=== PATIENT | male | born 1980 | race Caucasian/White ===

== ENCOUNTER 2017-06-26 15:17 | Emergency (ER) | payer OTHER, SELFPAY | END 2017-06-26 19:11 | disposition short-term general hospital (02) | PROVIDERS: Emergency Provider Emergency Medicine; Family Provider Physician Assistant; Visit Provider Emergency Medicine | DX: K85.90 Acute pancreatitis without necrosis or infection, unspecified (principal); E11.9 Type 2 diabetes mellitus without complications; Z91.14 Patient's other noncompliance with medication regimen | CPT/HCPCS: 74177; 80053; 82150; 83690; 85025; 96365; 96375; 99285; J2405 ==

== ENCOUNTER → 2017-10-06 11:59 | Outpatient (CLI) | payer OTHER, SELFPAY ==
--- NOTE | 2017-10-06 12:01 | XR_ITS ---
XR foot wt bearing RT 3V HISTORY: Right foot pain near the heel ORDERING PHYSICIAN: Cheryl Scott DPM PATIENT AGE: 37 years COMPARISON: None FINDINGS: No fracture or dislocation. No lytic or blastic change. There is normal mineralization.. The joint spaces are well-preserved. No erosive changes evident. There is a prominent calcaneal spur measuring 12 mm. There are mild osteoarthritic changes at first MTP joint IMPRESSION: 1. Mild osteoarthritic change of the first MTP joint 2. Prominent calcaneal spur without obvious erosion
== END ==
PROVIDERS: PCP Physician Assistant; Visit Provider Podiatrist
DX: M79.671 Pain in right foot (principal)
CPT/HCPCS: 73630

== ENCOUNTER → 2018-05-03 07:43 | Outpatient (CLI) | payer OTHER, SELFPAY ==
[2018-05-03 15:19] LABS: Alanine Aminotransferase 51 U/L (12-78); Albumin Level 3.6 gm/dL (3.4-5.0); Alkaline Phosphatase 156 U/L (46-116); Anion Gap 17.5 mEq/L (5-15); Aspartate Amino Transferase 24 U/L (15-37); Bilirubin,Total 1.2 mg/dL (0.2-1.0); Blood Urea Nitrogen 11 mg/dL (7-18); Calcium 8.7 mg/dL (8.5-10.1); Carbon Dioxide 23 mmol/L (21.0-32.0); Chloride 99 mmol/L (98-107); Chol/HDL Ratio 5.3 (1-3.5); Cholesterol 200 mg/dL (140-200); Creatinine,Serum 0.62 mg/dL (0.70-1.30); Estimated Glomerular Filt Rate 145 ml/min (>60); GFR (African American) 176 ML/MIN (>60); Globulin 3.6 gm/dl (1.3-3.2); Glucose 216 mg/dL (74-106); HDL Cholesterol 38 mg/dL (27-67); LDL Cholesterol 91 mg/dL (0-130); Potassium 4.5 mmoL/L (3.5-5.1); Sodium 135 mmol/L (136-145); Total Protein,Serum 7.2 gm/dL (6.4-8.2); Triglycerides 354 mg/dL (30-200); VLDL Cholesterol 71 mg/dL (0-40)
[2018-05-04 11:17] LABS: Creatinine, Urine 108.6 mg/dL (Not Estab.); Microalbumin, Urine 40.5 ug/mL (Not Estab.)
== END ==
PROVIDERS: PCP Physician Assistant; Visit Provider Internal Medicine Endocrinology, Diabetes & Metabolism
DX: E11.65 Type 2 diabetes mellitus with hyperglycemia (principal); E78.2 Mixed hyperlipidemia; Z79.4 Long term (current) use of insulin
CPT/HCPCS: 36415; 80053; 80061; 82043; 82570

== ENCOUNTER → 2018-12-07 07:14 | Outpatient (CLI) | payer OTHER, SELFPAY ==
[2018-12-07 16:57] LABS: Albumin Level 3.1 gm/dL (3.4-5.0); Alkaline Phosphatase 120 U/L (46-116); Blood Urea Nitrogen 16 mg/dL (7-18); Carbon Dioxide 23 mmol/L (21.0-32.0); Chol/HDL Ratio 11.9 (1-3.5); Cholesterol 178 mg/dL (140-200); Creatinine,Serum 0.76 mg/dL (0.70-1.30); Estimated Glomerular Filt Rate 114 ml/min (>60); GFR (African American) 138 ML/MIN (>60); HDL Cholesterol 15 mg/dL (27-67)
[2018-12-07 17:42] LABS: Bilirubin,Total 0.3 mg/dL (0.2-1.0)
[2018-12-07 17:54] LABS: Anion Gap 15.4 mEq/L (5-15); Chloride 102 mmol/L (98-107)
[2018-12-07 18:01] LABS: Potassium 4.4 mmoL/L (3.5-5.1)
[2018-12-07 18:02] LABS: Alanine Aminotransferase 52.8 U/L (12-78); Aspartate Amino Transferase 25 U/L (15-37); Glucose 246 mg/dL (74-106); Total Protein,Serum 6.1 gm/dL (6.4-8.2)
[2018-12-07 18:03] LABS: LDL Cholesterol 148 mg/dL (0-130); Triglycerides 73 mg/dL (30-200); VLDL Cholesterol 15 mg/dL (0-40)
[2018-12-10 15:24] LABS: Sodium 136 mmol/L (136-145)
[2018-12-10 15:27] LABS: Calcium 9.5 mg/dL (8.5-10.1)
== END ==
PROVIDERS: PCP Physician Assistant; Visit Provider Internal Medicine Endocrinology, Diabetes & Metabolism
DX: E11.65 Type 2 diabetes mellitus with hyperglycemia (principal); E78.2 Mixed hyperlipidemia; Z79.4 Long term (current) use of insulin
CPT/HCPCS: 36415; 80053; 80061

== ENCOUNTER → 2019-03-03 16:32 | Outpatient (CLI) | payer OTHER, SELFPAY ==
[2019-03-03 17:55] LABS: Alanine Aminotransferase 44 U/L (12-78); Albumin Level 3.8 gm/dL (3.4-5.0); Albumin/Globulin Ratio 1.1 (1.1-1.8); Alkaline Phosphatase 114 U/L (46-116); Anion Gap 11.8 mEq/L (5-15); Aspartate Amino Transferase 25 U/L (15-37); Bilirubin,Total 0.9 mg/dL (0.2-1.0); Blood Urea Nitrogen 9 mg/dL (7-18); Calcium 8.9 mg/dL (8.5-10.1); Carbon Dioxide 27 mmol/L (21.0-32.0); Chloride 101 mmol/L (98-107); Chol/HDL Ratio 6.2 (1-3.5); Cholesterol 160 mg/dL (140-200); Estimated Glomerular Filt Rate 150 ml/min (>60); GFR (African American) 181 ML/MIN (>60); Globulin 3.6 gm/dl (1.3-3.2); Glucose 159 mg/dL (74-106); HDL Cholesterol 26 mg/dL (27-67); Potassium 3.8 mmoL/L (3.5-5.1); Sodium 136 mmol/L (136-145); Thyroid Stimulating Hormone 2.43 uIU/ml (0.358-3.740); Total Protein,Serum 7.4 gm/dL (6.4-8.2)
[2019-03-03 18:40] LABS: Triglycerides 574 mg/dL (30-200)
[2019-03-05 10:17] LABS: Microalbumin, Urine 40.8 ug/mL (Not Estab.)
[2019-03-05 12:51] LABS: Vitamin B12 369 pg/mL (232-1245); Vitamin D 25 Hydroxy 15.4 ng/mL (30.0-100.0)
== END ==
PROVIDERS: Visit Provider Internal Medicine Endocrinology, Diabetes & Metabolism
DX: E11.65 Type 2 diabetes mellitus with hyperglycemia (principal); E78.2 Mixed hyperlipidemia; E53.8 Deficiency of other specified B group vitamins; E55.9 Vitamin D deficiency, unspecified; I10 Essential (primary) hypertension; Z79.4 Long term (current) use of insulin; Z79.84 Long term (current) use of oral hypoglycemic drugs
CPT/HCPCS: 36415; 80053; 80061; 82043; 82570; 82607; 82652; 84443

== ENCOUNTER → 2019-06-04 09:50 | Outpatient (CLI) | payer OTHER, SELFPAY ==
[2019-06-04 11:59] LABS: Blood Urea Nitrogen 12 mg/dL (7-18); Chloride 100 mmol/L (98-107); Chol/HDL Ratio 9.3 (1-3.5); Cholesterol 205 mg/dL (140-200); HDL Cholesterol 22 mg/dL (27-67); Potassium 4.4 mmoL/L (3.5-5.1); Sodium 135 mmol/L (136-145)
[2019-06-04 14:08] LABS: Aspartate Amino Transferase 36 U/L (15-37)
[2019-06-04 14:09] LABS: Alanine Aminotransferase 49.2 U/L (12-78); Anion Gap 14.4 mEq/L (5-15); Carbon Dioxide 25 mmol/L (21.0-32.0); Triglycerides 1663 mg/dL (30-200)
[2019-06-04 14:10] LABS: Albumin Level 3.8 gm/dL (3.4-5.0); Albumin/Globulin Ratio 1.3 (1.1-1.8); Bilirubin,Total 0.5 mg/dL (0.2-1.0); Calcium 8.5 mg/dL (8.5-10.1); Creatinine,Serum 0.56 mg/dL (0.70-1.30); Estimated Glomerular Filt Rate 162 ml/min (>60); GFR (African American) 196 ML/MIN (>60); Globulin 2.9 gm/dl (1.3-3.2); Glucose 186 mg/dL (74-106); Total Protein,Serum 6.7 gm/dL (6.4-8.2)
[2019-06-04 14:11] LABS: Alkaline Phosphatase 103 U/L (46-116)
[2019-06-06 06:39] LABS: Vitamin B12 411 pg/mL (232-1245)
[2019-06-07 06:17] LABS: Vitamin D 25 Hydroxy 13.3 ng/mL (30.0-100.0)
== END ==
PROVIDERS: Visit Provider Internal Medicine Endocrinology, Diabetes & Metabolism
DX: E11.65 Type 2 diabetes mellitus with hyperglycemia (principal); E78.2 Mixed hyperlipidemia; E55.9 Vitamin D deficiency, unspecified; E53.8 Deficiency of other specified B group vitamins; Z79.4 Long term (current) use of insulin; Z79.84 Long term (current) use of oral hypoglycemic drugs
CPT/HCPCS: 36415; 80053; 80061; 82607; 82652

== ENCOUNTER → 2019-12-02 11:22 | Outpatient (CLI) | payer OTHER, SELFPAY ==
[2019-12-02 12:40] LABS: Alanine Aminotransferase 30 U/L (12-78); Albumin Level 4.1 g/dl (3.5-5.0); Albumin/Globulin Ratio 1.3 (1.1-1.8); Alkaline Phosphatase 114 U/L (38-126); Anion Gap 9.3 mEq/L (5-15); Aspartate Amino Transferase 31 U/L (17-59); Bilirubin,Total 1.1 mg/dl (0.2-1.3); Blood Urea Nitrogen 10 mg/dl (9-20); Calcium 9.3 mg/dl (8.4-10.2); Carbon Dioxide 22 mmol/L (22.0-30.0); Chloride 106 mmol/L (98-107); Chol/HDL Ratio 8.5 (1-3.5); Cholesterol 254 mg/dl (140-200); Estimated Glomerular Filt Rate 184 ml/min (>60); GFR (African American) 223 ML/MIN (>60); Globulin 3.1 g/dL (1.3-3.2); Glucose 239 mg/dl (74-100); HDL Cholesterol 30 mg/dl (40-60); Potassium 4.3 mmoL/L (3.5-5.1); Sodium 133 mmol/L (136-145); Total Protein,Serum 7.2 g/dl (6.3-8.2)
[2019-12-02 12:50] LABS: Triglycerides 1390 mg/dl (30-150)
[2019-12-02 12:56] LABS: Direct LDL Cholesterol < 30.00 mg/dL (100-129)
[2019-12-02 13:11] LABS: Thyroid Stimulating Hormone 1.31 uIU/mL (0.465-4.68)
[2019-12-03 10:23] LABS: Creatinine, Urine 96.9 mg/dL (Not Estab.); Microalbumin, Urine 7.9 ug/mL (Not Estab.)
== END ==
PROVIDERS: Visit Provider Internal Medicine Endocrinology, Diabetes & Metabolism
DX: E11.65 Type 2 diabetes mellitus with hyperglycemia (principal); I10 Essential (primary) hypertension; E78.2 Mixed hyperlipidemia; Z79.4 Long term (current) use of insulin; Z13.29 Encounter for screening for other suspected endocrine disorder
CPT/HCPCS: 36415; 80053; 80061; 82043; 82570; 84443

== ENCOUNTER 2020-02-20 15:40 | Emergency (ER) | payer OTHER, SELFPAY ==
[2020-02-20 15:42] VITALS: BP 150/100; PULSE 101; RESP 18; TEMP 37.2; O2SAT 99; BMI 31.9
[2020-02-20 16:26] LABS: Chloride 100 mmol/L (98-107); Potassium 4.2 mmoL/L (3.5-5.1); Sodium 135 mmol/L (136-145)
[2020-02-20 16:26] LABS: Microscopic, Urine URINE MICROSCOPIC (MICROSCOPIC)
[2020-02-20 16:28] LABS: Amylase 78 U/L (30-110)
[2020-02-20 16:29] LABS: Alanine Aminotransferase 53 U/L (12-78); Albumin Level 4.2 g/dl (3.5-5.0); Albumin/Globulin Ratio 1.1 (1.1-1.8); Alkaline Phosphatase 112 U/L (38-126); Anion Gap 16.2 mEq/L (5-15); Aspartate Amino Transferase 50 U/L (17-59); Bilirubin,Total 0.9 mg/dl (0.2-1.3); Blood Urea Nitrogen 14 mg/dl (9-20); Calcium 10.1 mg/dl (8.4-10.2); Carbon Dioxide 23 mmol/L (22.0-30.0); Creatinine Clearance Estimated 265 mL/min (50-200); Estimated Glomerular Filt Rate 184 ml/min (>60); GFR (African American) 223 ML/MIN (>60); Globulin 3.9 g/dL (1.3-3.2); Glucose 314 mg/dl (74-100); Lipase 55 U/L (23-300); Total Protein,Serum 8.1 g/dl (6.3-8.2)
[2020-02-20 16:30] LABS: Appearance,Urine CLEAR (Clear); Bilirubin,Urine Negative (Negative); Blood, Urine TRACE-I (Negative); Color,Urine YELLOW (Yellow); Glucose,Urine (UA) 3+ (Negative); Ketones,Urine Negative (Negative); Leukocyte Esterase,Urine Negative (Negative); Nitrate,Urine Negative (Negative); PH,Urine 6.5 (5.0-8.5); Protein,Urine Negative (Negative); Urobilinogen,Urine 0.2 EU/dl (0.2)
[2020-02-20 16:33] LABS: Basophils # 0.1 K/mm3 (0-0.2); Basophils % 0.5 % (0.1-2.0); Eosinophils # 0.2 K/mm3 (0.0-0.4); Eosinophils % 1.7 % (0.1-12.0); Hematocrit 44.2 % (42.0-52.0); Hemoglobin 15.5 g/dL (14.1-18.0); Lymphocytes # 2.3 K/mm3 (0.7-4.5); Lymphocytes % 25.1 % (10-50); Mean Corpuscular Hemoglobin 29.7 pg (27.0-31.2); Mean Corpuscular Volume 84.7 fl (80-94); Mean Platelet Volume 8.4 fl (7.4-10.4); Monocytes # 0.5 K/mm3 (0.1-1.0); Monocytes % 4.9 % (1.7-9.3); Neutrophils # 6.2 K/mm3 (1.8-7.8); Neutrophils % 67.8 % (37.0-80.0); Platelet Count 179 K/mm3 (142-424); Red Blood Count 5.22 M/mm3 (4.60-6.20); Red Cell Distribution Width 13.2 % (11.5-17.5); White Blood Count 9.1 K/mm3 (4.8-10.8)
[2020-02-20 16:36] VITALS: BP 139/96; PULSE 100; O2SAT 97
[2020-02-20 16:36] LABS: Acetone, Serum (Rapid) None Detected (None Detect)
[2020-02-20 16:50] VITALS: BP 123/85; PULSE 90; RESP 18; TEMP 36.6; O2SAT 100
--- NOTE | 2020-02-20 16:52 | HMH.EDURI ---
ED Disposition Clinical Impression: Upper respiratory infection Disposition: Home, Self-Care Condition on Discharge: Good Instructions: DI for Viral Upper Respiratory Infection -- Adult, DI for Acute Bronchitis Referrals: Breana Mcnamara APRN [Primary Care Provider] - Forms: Work/School Release - Critical Care Critical Care Time: No Attestation: On 02/20/20, the high probability of a clinically significant, sudden or life threatening deterioration of the following system(s) required my full and direct attention, intervention and personal management. The time I documented below is in addition to time spent performing reported procedures but includes the following listed in this critical care notation. Medical Decision Making - Medical Records Medical records reviewed: Yes: I reviewed the patient's medical records. - [place] Inquiry Pt receiving controlled substance: No Vital Signs: 02/20/20 15:42 02/20/20 16:36 02/20/20 16:50 Temperature 98.9 F 98 F Temperature Source Oral Pulse Rate 90 Pulse Rate [Right] 101 H 100 H Respiratory Rate 18 18 Blood Pressure 123/85 Blood Pressure [Right Arm] 150/100 H 139/96 H Blood Pressure Mean [Right Arm] 116 110 Blood Pressure Source [Right Arm] Automatic Cuff Blood Pressure Position [Right Arm] Sitting 02 Sat by Pulse Oximetry 99 97 Oxygen Delivery Method Room Air - Lab Data Lab results reviewed: Yes: I reviewed the patient's lab results. Lab Results 02/20/20 15:30: Urine Color Yellow, Urine Appearance Clear, Urine pH 6.5, Ur Specific Elma 1.020, Urine Protein Negative, Urine Glucose (UA) 3+, Urine Ketones Negative, Urine Blood Trace-i, Urine Nitrate Negative, Urine Bilirubin Negative, Urine Urobilinogen 0.2, Ur Leukocyte Esterase Negative 02/20/20 16:05: WBC 9.1, RBC 5.22, Hgb 15.5, Hct 44.2, MCV 84.7, MCH 29.7, MCHC 35.0, RDW 13.2, Plt Count 179, MPV 8.4, Neut % (Auto) 67.8, Lymph % (Auto) 25.1, Dewitt % (Auto) 4.9, Eos % (Auto) 1.7, Baso % (Auto) 0.5, Neut # (Auto) 6.2, Lymph # (Auto) 2.3, Dewitt # (Auto) 0.5, Eos # (Auto) 0.2, Baso # (Auto) 0.1 02/20/20 16:05: Sodium 135 L, Potassium 4.2, Chloride 100, Carbon Dioxide 23, Anion Gap 16.2 H, BUN 14, Creatinine 0.50 L, Estimated Creat Clear 265, Estimated GFR 184, Est GFR ( Amer) 223, Glucose 314 H, Calcium 10.1, Total Bilirubin 0.9, AST 50, ALT 53, Alkaline Phosphatase 112, Total Protein 8.1, Albumin 4.2, Globulin 3.9 H, Albumin/Globulin Ratio 1.1, Amylase 78, Acetone Level None detected 02/20/20 16:05: Lipase 55 Result diagrams: 02/20/20 16:05 02/20/20 16:05 Orders (Tests/Meds): ORDERS Category Date Time Status Coronavirus 19 Swab (OUTPT) Routine Lab 02/20/20 14:20 Received Urinalysis and Microscopic Stat Lab 02/20/20 15:30 Results - Radiology Data #1 Image(s): Chest Preliminary Findings: Normal/NAD URI/Sore Throat HPI - General Chief Complaint: Upper Respiratory Infection Stated Complaint: pain left side Time Seen by Provider: 02/20/20 16:46 Mode of Arrival: Ambulatory Source of Information: Patient Limitations: No Limitations Description of Symptoms (Recalled from ER Triage Doc. by RN): Pt states for 3 days he has been congested, has had a cough, runny nose, vomiting and overall not feeling well. - History of Present Illness HPI Narrative: 39-year-old male presents with nausea vomiting and minor cough for the last 3 or 4 days. Patient states that cough started about 2 days ago and the nausea vomiting started about 3 days ago. He states of the last 2 days has had 2 episodes of emesis. Otherwise patient denies no other symptoms.Patient denies any recent cough or shortness of breath, patient denies any sore throat or headache, patient denies any loss of taste or smell, patient denies any malaise or fatigue, patient denies any abdominal pain nausea vomiting or diarrhea. - Related Data Home Medications Medication Instructions Recorded Confirmed [facility]
[2020-02-20 16:53] LABS: Bacteria,Urine Trace /lpf; Squamous Epithelial Cell,Urine Occasional #/hpf (0-5); WBC,Urine Occasional #/hpf (0-3)
[2020-02-20 18:58] LABS: POC Glucose,Bedside 267 (70-110)
== END 2020-02-20 16:57 | disposition home or self-care (01) ==
PROVIDERS: Emergency Provider Family Medicine; PCP Nurse Practitioner Family
DX: J06.9 Acute upper respiratory infection, unspecified (principal); Z20.828 Contact with and (suspected) exposure to other viral communicable diseases; E10.65 Type 1 diabetes mellitus with hyperglycemia; Z79.4 Long term (current) use of insulin; Z79.84 Long term (current) use of oral hypoglycemic drugs; E78.5 Hyperlipidemia, unspecified; Z79.899 Other long term (current) drug therapy
CPT/HCPCS: 80053; 81001; 82009; 82150; 82962; 83690; 85025; 99283; U0003

== ENCOUNTER 2020-04-06 07:39 | Observation (INO) | payer OTHER, SELFPAY ==
[2020-04-06 07:41] VITALS: BP 172/99; PULSE 104; RESP 19; TEMP 36.5; O2SAT 100; BMI 32.6
--- NOTE | 2020-04-06 08:10 | HMH.EDGENADL ---
ED Disposition Clinical Impression: Cutaneous abscess of face, Hyperglycemia, Facial cellulitis Disposition: Admitted as Observation Condition on Discharge: Fair - Critical Care Critical Care Time: No Attestation: On 04/06/20, the high probability of a clinically significant, sudden or life threatening deterioration of the following system(s) required my full and direct attention, intervention and personal management. The time I documented below is in addition to time spent performing reported procedures but includes the following listed in this critical care notation. Medical Decision Making - Medical Records Medical records reviewed: Yes: I reviewed the patient's medical records. - [place] Inquiry Pt receiving controlled substance: No Vital Signs: 04/06/20 07:41 04/06/20 09:31 04/06/20 09:32 Temperature 97.7 F 97.7 F 97.8 F Temperature Source Oral Oral Oral Pulse Rate 101 H Pulse Rate [Left Radial] 104 H 87 Respiratory Rate 19 16 18 Blood Pressure 172/99 H Blood Pressure [Right Arm] 172/99 H 144/91 H Blood Pressure Mean [Right Arm] 123 108 Blood Pressure Source [Right Arm] Automatic Cuff Blood Pressure Position [Right Arm] Supine 02 Sat by Pulse Oximetry 100 98 Oxygen Delivery Method Room Air Room Air Room Air - Lab Data Lab results reviewed: Yes: I reviewed the patient's lab results. Lab Results 04/06/20 08:00: Sodium 130 L, Potassium 4.8, Chloride 99, Carbon Dioxide 16 L, Anion Gap 19.8 H, BUN 11, Creatinine 0.60 L, Estimated Creat Clear 226, Estimated GFR 149, Est GFR ( Amer) 181, Glucose 372 H, Calcium 9.1, Total Bilirubin 1.4 H, AST 33, ALT 32, Alkaline Phosphatase 143 H, Total Protein 7.9, Albumin 4.0, Globulin 3.9 H, Albumin/Globulin Ratio 1.0 L 04/06/20 08:00: Acetone Level None detected 04/06/20 08:11: WBC 16.8 H, RBC 5.13, Hgb 15.7, Hct 43.4, MCV 84.5, MCH 30.6, MCHC 36.2 H, RDW 13.1, Plt Count 195, MPV 8.4, Neut % (Auto) 81.7 H, Lymph % (Auto) 12.2, Ada % (Auto) 4.8, Eos % (Auto) 1.0, Baso % (Auto) 0.4, Neut # (Auto) 13.7 H, Lymph # (Auto) 2.0, Ada # (Auto) 0.8, Eos # (Auto) 0.2, Baso # (Auto) 0.1, Total Counted 100, Neutrophils % (Manual) 80 H, Lymphocytes % (Manual) 13, Monocytes % (Manual) 7, Platelet Estimate Normal, RBC Morphology Normal 04/06/20 08:11: Hemoglobin A1c 11.2 H 04/06/20 08:48: VBG pH 7.36, VBG pCO2 32.6 L, VBG pO2 173.1 H, VBG HCO3 18.0 L, VBG Total CO2 19.0 L, VBG O2 Saturation 99.1 H, VBG Base Excess -7.4 L Result diagrams: 04/06/20 08:11 04/06/20 08:00 Orders (Tests/Meds): ED MEDICATIONS Generic Name Dose Route Start Last Admin Trade Name Freq PRN Reason Stop Dose Admin Acetaminophen 650 mg 04/06/20 09:42 04/06/20 09:55 Acetaminophen 325mg Tab PO 05/06/20 09:41 650 mg Q4HP PRN Administration As Needed for Fever or Pain Atorvastatin Calcium 40 mg 04/06/20 21:00 Lipitor 40mg Tablet PO 05/06/20 20:59 HS PROSPER Enoxaparin Sodium 40 mg 04/06/20 16:58 04/06/20 17:06 Lovenox 40mg/0.4ml Syringe SQ 05/06/20 16:57 40 mg DAILY PROSPER Administration Vancomycin HCl 1,750 mg/ 250 mls @ 125 mls/hr 04/06/20 11:00 04/06/20 18:16 Sodium Chloride IV 04/20/20 10:59 125 mls/hr Q8H PROSPER Administration Insulin Human Lispro 0 unit 04/06/20 11:00 04/06/20 17:01 Humalog 100 Units/Ml 3ml Vial (Ssi) SQ 05/06/20 10:59 12 unit ACHS PROSPER Administration Protocol Irbesartan 75 mg 04/07/20 09:00 Avapro 75mg Tablet PO 05/07/20 08:59 DAILY PROSPER Non-Formulary Medication 1,000 mg 04/06/20 21:00 Metformin Hcl [Metformin Hcl Er] PO 05/06/20 20:59 BID PROSPER Ondansetron HCl 4 mg 04/06/20 09:42 Zofran 4mg/2ml Vial IV 05/06/20 09:41 Q8HP PRN Nausea Sodium Chloride 10 ml 04/06/20 09:42 Saline Flush 10ml Syringe IV 05/06/20 09:41 NEEDED PRN Maintain IV Site Discontinued Medications Generic Name Dose Route Start Last Admin Trade Name Freq PRN Reason Stop Dose Admin
[2020-04-06 08:21] LABS: Basophils # 0.1 K/mm3 (0-0.2); Basophils % 0.4 % (0.1-2.0); Eosinophils # 0.2 K/mm3 (0.0-0.4); Hematocrit 43.4 % (42.0-52.0); Hemoglobin 15.7 g/dL (14.1-18.0); Lymphocytes % 12.2 % (10-50); Mean Corpuscular HGB Conc 36.2 g/dL (31.8-35.4); Mean Corpuscular Hemoglobin 30.6 pg (27.0-31.2); Mean Corpuscular Volume 84.5 fl (80-94); Mean Platelet Volume 8.4 fl (7.4-10.4); Monocytes # 0.8 K/mm3 (0.1-1.0); Monocytes % 4.8 % (1.7-9.3); Neutrophils # 13.7 K/mm3 (1.8-7.8); Neutrophils % 81.7 % (37.0-80.0); Platelet Count 195 K/mm3 (142-424); Red Blood Count 5.13 M/mm3 (4.60-6.20); Red Cell Distribution Width 13.1 % (11.5-17.5); White Blood Count 16.8 K/mm3 (4.8-10.8)
[2020-04-06 08:24] LABS: Chloride 99 mmol/L (98-107)
[2020-04-06 08:25] LABS: Potassium 4.8 mmoL/L (3.5-5.1); Sodium 130 mmol/L (136-145)
[2020-04-06 08:27] LABS: MANUAL DIFFERENTIAL MANUAL DIFFERENTIAL (MANUAL DIFF)
[2020-04-06 08:27] LABS: Alanine Aminotransferase 32 U/L (12-78); Aspartate Amino Transferase 33 U/L (17-59); Blood Urea Nitrogen 11 mg/dl (9-20); Creatinine Clearance Estimated 226 mL/min (50-200); Estimated Glomerular Filt Rate 149 ml/min (>60); GFR (African American) 181 ML/MIN (>60)
[2020-04-06 08:28] LABS: Alkaline Phosphatase 143 U/L (38-126); Anion Gap 19.8 mEq/L (5-15); Bilirubin,Total 1.4 mg/dl (0.2-1.3); Calcium 9.1 mg/dl (8.4-10.2); Carbon Dioxide 16 mmol/L (22.0-30.0); Globulin 3.9 g/dL (1.3-3.2); Glucose 372 mg/dl (74-100); Total Protein,Serum 7.9 g/dl (6.3-8.2)
[2020-04-06 08:38] LABS: Lymphocytes % 13 % (10-50); Monocytes % 7 % (2-9); Neutrophils % 80 % (42-76); Platelet Estimate Normal; RBC Morphology Normal; Total Cells Counted 100
[2020-04-06 09:02] LABS: Acetone, Serum (Rapid) None Detected (None Detect)
--- NOTE | 2020-04-06 09:14 | PC.NURSE ---
Report called to Hiral CALLE
[2020-04-06 09:31] VITALS: BP 172/99; PULSE 101; RESP 16; TEMP 36.5; O2SAT 100
[2020-04-06 09:32] VITALS: BP 144/91; PULSE 87; RESP 18; TEMP 36.6; O2SAT 98; BMI 32.5
--- NOTE | 2020-04-06 09:36 | PC.NURSE ---
pt is unsure what medicine he takes other than his insulin. Will update as medicine is given to staff. Meds reconciled with information given in records.
[2020-04-06 09:39] LABS: VBG Base Excess -7.4 mmol/L (-2.4-2.3); VBG Oxygen Saturation 99.1 % (50-70); VBG PCO2 32.6 mmol/L (35-51); VBG PH 7.36 mmol/L (7.31-7.41); VBG PO2 173.1 mmol/L (28-40)
--- NOTE | 2020-04-06 11:34 | P.CONPHA_ITS ---
- Pharmacy Consult Date: 04/06/20 Time: 11:34 Referring provider: DR. LUCAS Reason for Consult:: VANCOMYCIN DOSING Allergies and ADEs:: Allergies Allergy/AdvReac Type Severity Reaction Status Date / Time Penicillins [PENICILLINS] Allergy Unknown Verified 05/16/18 16:20 Home Medications:: Home Medications Medication Instructions Recorded Confirmed Type gemfibrozil 600 mg tablet 600 mg PO DAILY 30 Days 10/06/17 04/06/20 History insulin aspart U-100 100 unit/mL 15 units SUB-Q TID 25 Days 10/06/17 04/06/20 History (3 mL) subcutaneous pen insulin degludec 200 unit/mL (3 50 units SUB-Q DAILY 28 Days 10/06/17 04/06/20 History mL) subcutaneous pen nadolol 40 mg tablet 40 mg PO DAILY 30 Days 10/06/17 04/06/20 History Empagliflozin/Metformin HCl 1 tab PO DAILY 05/16/18 04/06/20 History [Synjardy Xr 25-1,000 mg Tablet] Height: 1.73 m Weight: 97.154 kg Laboratory Results:: Laboratory Results - last 24 hr 04/06/20 08:00: Sodium 130 L, Potassium 4.8, Chloride 99, Carbon Dioxide 16 L, Anion Gap 19.8 H, BUN 11, Creatinine 0.60 L, Estimated Creat Clear 226, Estimated GFR 149, Est GFR ( Amer) 181, Glucose 372 H, Calcium 9.1, Total Bilirubin 1.4 H, AST 33, ALT 32, Alkaline Phosphatase 143 H, Total Protein 7.9, Albumin 4.0, Globulin 3.9 H, Albumin/Globulin Ratio 1.0 L 04/06/20 08:00: Acetone Level None detected 04/06/20 08:11: WBC 16.8 H, RBC 5.13, Hgb 15.7, Hct 43.4, MCV 84.5, MCH 30.6, MCHC 36.2 H, RDW 13.1, Plt Count 195, MPV 8.4, Neut % (Auto) 81.7 H, Lymph % (Auto) 12.2, Dundy % (Auto) 4.8, Eos % (Auto) 1.0, Baso % (Auto) 0.4, Neut # (Auto) 13.7 H, Lymph # (Auto) 2.0, Dundy # (Auto) 0.8, Eos # (Auto) 0.2, Baso # (Auto) 0.1, Total Counted 100, Neutrophils % (Manual) 80 H, Lymphocytes % (Manual) 13, Monocytes % (Manual) 7, Platelet Estimate Normal, RBC Morphology Normal 04/06/20 08:48: VBG pH 7.36, VBG pCO2 32.6 L, VBG pO2 173.1 H, VBG HCO3 18.0 L, VBG Total CO2 19.0 L, VBG O2 Saturation 99.1 H, VBG Base Excess -7.4 L Medical History: Reports:: Diabetes Mellitus Type 1, Hyperlipidemia Denies:: Asthma, Cancer, Chronic Obstructive Pulmonary Disease (COPD), Diabetes Mellitus Type 2, MRSA Assessment and Plan - Assessment and plan all Dx Assessment and Plan for all problems:: Age: 39 yo Serum creatinine: 0.6 mg/dL Height: 68.1 Inches Weight (kg): 97 IBW (kg): 68.63 Dosing wt(kg): 97 Estimated Creatinine clearance (ml/min): 130 Clearance limited to 130 ml/min to reduce risk of overdosing. Vd (liters): 77.6 (factor used: 0.8 L/kg) Jose Luis (hr-1): 0.112 Half life (hrs): 6.19 Recommended dose: 1750 mg Interval: 8 hrs Infusion time (hrs): 2.0 Predicted peak (mcg/mL): 34.1 Predicted trough (mcg/mL): 17.41 Total body weight is being used for vancomycin dosing. Recommendations: Give Vancomycin 1750 mg q 8 hrs with an expected Cpeak of 34.1 mcg/ml and an expected Ctrough of 17.41 mcg/ml Thank you for the consult, will continue to follow.
[2020-04-06 11:44] LABS: POC Glucose,Bedside 347 (70-110)
--- NOTE | 2020-04-06 12:47 | P.CONPHA_ITS ---
[facility] Pharmacy VTE Monitoring - Patient Demographics Admission date: 04/06/20 Report Date: 04/06/20 Time: 12:47 Allergies/Adverse Reactions: Patient Allergies Penicillins [PENICILLINS] Allergy (Unknown, Verified 05/16/18 16:20) Height: 1.73 m Weight: 97.154 kg Patient Problems: Current Active Problems Cutaneous abscess of face (Acute) Hyperglycemia (Acute) Facial cellulitis (Acute) - VTE Risk Labs: VTE Related Lab Results Hgb 15.7 g/dL (14.1-18.0) 04/06/20 08:11 Hct 43.4 % (42.0-52.0) 04/06/20 08:11 Plt Count 195 K/mm3 (142-424) 04/06/20 08:11 BUN 11 mg/dl (9-20) 04/06/20 08:00 Creatinine 0.60 mg/dl (0.66-1.25) L 04/06/20 08:00 Estimated Creat Clear 226 mL/min (50-200) 04/06/20 08:00 Was VTE Risk Assessment Performed: Yes VTE Score: 0 VTE Risk Level: Very Low Risk Clinical Trial Participant: No - Prophylaxis VTE Prophylaxis Ordered?: Yes Types of VTE Prophylaxis: TEDS Knee High
--- NOTE | 2020-04-06 14:33 | HMH.PHAINT ---
HOME MEDICATION RECONCILIATION COMPLETED USING LIST FROM [facility], AND USING PT INTERVIEW.
--- NOTE | 2020-04-06 15:22 | PC.NURSE ---
PT IS SITTING UP ON THE SOB WITH FAMILY IN THE ROOM. PT RECEIVED TYLENOL FOR A HEADACHE THIS SHIFT. SWELLING NOTED TO THE RT SIDE OF THE FACE. ACCORDING TO PT SINCE THE ER PHYSICIAN OPENED THE AREA IT IS NOW GRADUALLY STARTING TO FEEL BETTER. VSS. EATING AND DRINKING WELL. PT HAS BEEN AMBULATING TO THE BATHROOM AND AROUND THE ROOM. LUNG SOUNDS CLEAR. BOWEL SOUNDS NORMAL. PT STATES HIS LAST BOWEL MOVEMENT WAS YESTERDAY MORNING. WILL CONTINUE TO MONITOR.
[2020-04-06 16:00] VITALS: BP 130/79; PULSE 76; RESP 18; TEMP 36.7; O2SAT 94
--- NOTE | 2020-04-06 16:46 | HMH.HP ---
*Admission Date: 04/06/20 *Chief complaint: Painful lesion of nose *History of present illness: 39-year-old male with diabetes since the age of 21 presented to the emergency department with a painful nasal lesion and right-sided facial swelling. The lesion first appeared as a bump of the inferior aspect of the right nare. Over the following 24 hours the lesion became more tender and grew. Patient tried to italia the painful lesion with a insulin syringe and needle but was unsuccessful. On April 05 he presented to his primary care physician's office where he was prescribed an antibiotic, Bactrim DS. Patient awoke this morning with right-sided facial swelling and faint erythema along with persistence of pain coming from the lesion of the right nostril and presented to the emergency department. In the emergency department patient was suspected of having a nasal abscess and the lesion was incised and drained. Approximately 2 mL's of purulent fluid was obtained and culture has been sent. Patient was given IV clindamycin in the emergency department and admitted for further evaluation and observation. Patient's white blood cell count was elevated. Since admission patient has been transitioned to vancomycin. Patient denies having fevers or chills. He denies body aches. He denies visual disturbance. Patient did have a headache on arrival to the floor that has successfully been treated with Tylenol. Regarding the patient's diabetes he does not know what his last A1c was. Patient has an Humalog insulin pump which he has not used in 48 hours. He is a noncompliant diabetic. Patient states the last time he checked his blood sugars his glucose read high . Patient denies complications of diabetes such as neuropathy, nephropathy, retinopathy. Patient has a personal history of hypertriglyceridemia causing pancreatitis [facility] History I have reviewed the patient's past medical history: Yes Medical History: Reports:: Diabetes Mellitus Type 1, Hyperlipidemia Denies:: Asthma, Cancer, Chronic Obstructive Pulmonary Disease (COPD), Diabetes Mellitus Type 2, MRSA *Have you ever received a pneumonia vaccine?: No *Have you received a flu vaccine this season?: No Other Medical History: Reports: Arthritis Comment:: Pancreatitis Laterality Cases: Left: Arthroscopy Knee, Bilateral: Myringotomy (Ear Tubes), Tonsillectomy Other Surgeries: Yes: EGD Amputation: No Fractures: No - *Social History Last grade of school completed: Some college Smoking Status: Never smoker Tobacco Type: smokeless tobacco # Packs/Day (cigarettes): 0 #Yrs smoked (if former smoker): 0 Alcohol Intake: never Alcohol Intake Frequency:: other Substance Use Type: denies use *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) Housing: house Household Members: significant other *Travel in the last 8 weeks: None Family Hx:: Diabetes, Heart Attack, Hyperlipidemia, Hypertension Review of Systems - Constitutional Denies anorexia, Denies body ache(s), Denies chills, Denies fatigue, Denies fever(s), Denies malaise - Eyes Denies blurry vision - ENT Denies dizziness, Denies dry mouth - *Cardiovascular Denies chest pain, Denies chest pain at rest - *Respiratory Denies change in phlegm color, Denies chest congestion - *Gastrointestinal Denies abdominal pain - *Genitourinary Denies difficulty urinating - *Musculoskeletal Denies abnormal walking, Denies joint pain - Integumentary/Breasts Denies changing lesions, Denies dry skin, Denies redness - *Neurologic Denies abnormal walking - Psychiatric Denies abnormal sleep pattern Meds Home Medications Medication Instructions Recorded Confirmed Type Atorvastatin Calcium [Lipitor 40mg 40 mg PO HS 04/06/20 04/06/20 History Tab] Insulin Aspart [Novolog] 0 units SQ DIRECTED 04/06/20 04/06/20 History Losartan Potassium [Cozaar 50mg 50 mg PO DAILY 04/06/20 04/06/20 History Tablets] Metformin HCl [Metformin H
[2020-04-06 17:11] LABS: POC Glucose,Bedside 365 (70-110)
--- NOTE | 2020-04-06 18:02 | PC.NURSE ---
WARM SALINE SOAKED COMPRESS TO NOSTRIL APPLIED AT 1800.
[2020-04-06 19:01] LABS: Hemoglobin A1C 11.2 % (4.0-6.0)
--- NOTE | 2020-04-06 19:11 | PC.NURSE ---
report given to heydi
[2020-04-06 19:19] VITALS: BP 129/81; PULSE 83; RESP 18; TEMP 36.5; O2SAT 97
--- NOTE | 2020-04-06 21:23 | PC.NURSE ---
MD Gaston notified of FSBS of 474. Give 30 units.
[2020-04-06 22:15] LABS: POC Glucose,Bedside 474 (70-110)
[2020-04-07 04:00] VITALS: BP 115/60; PULSE 72; RESP 22; TEMP 36.6; O2SAT 97
[2020-04-07 05:14] VITALS: BMI 32.1
[2020-04-07 05:47] LABS: POC Glucose,Bedside 265 (70-110)
--- NOTE | 2020-04-07 06:26 | PC.NURSE ---
No acute changes. Pt has rested well this shift. No complaints of dicomfort. Pt has stated that he had some yellow drainage from nasal abscess x2. Pt was educated to not try to drain abscess himself and keep hands clean. Pt has tolerated warm saline compresses well this shift. VSS. Pt remains on RA. BS active. Medications administered per sep. No concerns at this time. Will continue to monitor.
[2020-04-07 07:13] LABS: Chloride 104 mmol/L (98-107); Potassium 3.9 mmoL/L (3.5-5.1); Sodium 132 mmol/L (136-145)
[2020-04-07 07:16] LABS: Anion Gap 13.9 mEq/L (5-15); Blood Urea Nitrogen 13 mg/dl (9-20); Carbon Dioxide 18 mmol/L (22.0-30.0); Creatinine Clearance Estimated 223 mL/min (50-200); Estimated Glomerular Filt Rate 149 ml/min (>60); GFR (African American) 181 ML/MIN (>60)
[2020-04-07 07:17] LABS: Calcium 8.5 mg/dl (8.4-10.2); Glucose 314 mg/dl (74-100)
[2020-04-07 07:19] LABS: Basophils % 0.2 % (0.1-2.0); Eosinophils % 0.3 % (0.1-12.0); Hematocrit 38.5 % (42.0-52.0); Lymphocytes # 1.9 K/mm3 (0.7-4.5); Lymphocytes % 12.9 % (10-50); Mean Corpuscular HGB Conc 34.2 g/dL (31.8-35.4); Mean Corpuscular Hemoglobin 29.4 pg (27.0-31.2); Mean Corpuscular Volume 85.9 fl (80-94); Mean Platelet Volume 8.9 fl (7.4-10.4); Monocytes # 0.6 K/mm3 (0.1-1.0); Monocytes % 4.1 % (1.7-9.3); Neutrophils # 12.1 K/mm3 (1.8-7.8); Neutrophils % 82.6 % (37.0-80.0); Platelet Count 150 K/mm3 (142-424); Red Blood Count 4.48 M/mm3 (4.60-6.20); Red Cell Distribution Width 13.3 % (11.5-17.5); White Blood Count 14.6 K/mm3 (4.8-10.8)
[2020-04-07 07:31] LABS: Hemoglobin 13.2 g/dL (14.1-18.0)
[2020-04-07 07:53] VITALS: BP 131/81; PULSE 64; RESP 20; TEMP 36.6; O2SAT 100
--- NOTE | 2020-04-07 08:11 | HMH.ACPN2 ---
Internal Medicine - PN: Subj *Date: 04/07/20 *Time: 08:11 Interval history: Patient reports improvement in pain and swelling around the right nasal lesion which does continue to drain purulent fluid. Patient has been using warm moist saline compresses overnight. He has not had any fevers. Exam Vital signs and Labs for Last 24 Hours: Temp Pulse Resp BP Pulse Ox 97.9 F 64 20 131/81 100 04/07/20 07:53 04/07/20 07:53 04/07/20 07:53 04/07/20 07:53 04/07/20 07:53 Laboratory Results - last 24 hr 04/06/20 08:00: Sodium 130 L, Potassium 4.8, Chloride 99, Carbon Dioxide 16 L, Anion Gap 19.8 H, BUN 11, Creatinine 0.60 L, Estimated Creat Clear 226, Estimated GFR 149, Est GFR ( Amer) 181, Glucose 372 H, Calcium 9.1, Total Bilirubin 1.4 H, AST 33, ALT 32, Alkaline Phosphatase 143 H, Total Protein 7.9, Albumin 4.0, Globulin 3.9 H, Albumin/Globulin Ratio 1.0 L 04/06/20 08:00: Acetone Level None detected 04/06/20 08:11: WBC 16.8 H, RBC 5.13, Hgb 15.7, Hct 43.4, MCV 84.5, MCH 30.6, MCHC 36.2 H, RDW 13.1, Plt Count 195, MPV 8.4, Neut % (Auto) 81.7 H, Lymph % (Auto) 12.2, Rogers % (Auto) 4.8, Eos % (Auto) 1.0, Baso % (Auto) 0.4, Neut # (Auto) 13.7 H, Lymph # (Auto) 2.0, Rogers # (Auto) 0.8, Eos # (Auto) 0.2, Baso # (Auto) 0.1, Total Counted 100, Neutrophils % (Manual) 80 H, Lymphocytes % (Manual) 13, Monocytes % (Manual) 7, Platelet Estimate Normal, RBC Morphology Normal 04/06/20 08:11: Hemoglobin A1c 11.2 H 04/06/20 08:48: VBG pH 7.36, VBG pCO2 32.6 L, VBG pO2 173.1 H, VBG HCO3 18.0 L, VBG Total CO2 19.0 L, VBG O2 Saturation 99.1 H, VBG Base Excess -7.4 L 04/06/20 11:35: POC Glucose 347 H* 04/06/20 16:49: POC Glucose 365 H* 04/06/20 21:07: POC Glucose 474 H* 04/07/20 05:36: POC Glucose 265 H 04/07/20 06:39: WBC 14.6 H, RBC 4.48 L, Hgb 13.2 L D, Hct 38.5 L, MCV 85.9, MCH 29.4, MCHC 34.2, RDW 13.3, Plt Count 150, MPV 8.9, Neut % (Auto) 82.6 H, Lymph % (Auto) 12.9, Rogers % (Auto) 4.1, Eos % (Auto) 0.3, Baso % (Auto) 0.2, Neut # (Auto) 12.1 H, Lymph # (Auto) 1.9, Rogers # (Auto) 0.6, Eos # (Auto) 0.0, Baso # (Auto) 0.0 04/07/20 06:39: Sodium 132 L, Potassium 3.9, Chloride 104, Carbon Dioxide 18 L, Anion Gap 13.9, BUN 13, Creatinine 0.60 L, Estimated Creat Clear 223, Estimated GFR 149, Est GFR ( Amer) 181, Glucose 314 H, Calcium 8.5 I & O for Last 24 hours: Intake & Output 04/04/20 04/05/20 04/06/20 04/07/20 11:59 11:59 11:59 11:59 Intake Total 2352 / 2352 Output Total 500 / 500 Balance 1852 / 1852 Weight 214 lb 3 oz 212 lb 5 oz Microbiology Reports for the Last 24 Hours: Microbiology 04/06/20 08:30 Face - Abscess Gram Stain - Final - Constitutional no acute distress - *Routine HEENT Exam Comments: With palpation the nasal lesion will continue to drain purulent fluid. Patient has some minor inferior periorbital swelling. No significant facial erythema. Right upper lip is less tender and swollen than yesterday - *Routine Respiratory Exam Present: CTA bilaterally - *Routine Cardiovascular Exam Present: RRR Assessment and Plan (1) Nasal abscess Current visit: Yes Status: Acute Category: Medical Code(s): J34.0 - Abscess, furuncle and carbuncle of nose (2) Type 2 diabetes mellitus with hyperglycemia, with long-term current use of insulin Current visit: Yes Status: Acute Category: Medical Code(s): E11.65 - Type 2 diabetes mellitus with hyperglycemia; Z79.4 - snf (current) use of insulin - Assessment and plan all Dx Assessment and Plan for all problems:: Patient will receive his morning dose of vancomycin and be discharged home to continue oral antibiotics. He will follow-up with his primary care physician on Thursday. Patient was encouraged to be more vigilant regarding his blood sugars and get his diabetes under control. He was informed of his A1c of 11.2.
--- NOTE | 2020-04-07 08:13 | HMH.DCSUM ---
General - General Admission date:: 04/06/20 Discharge date: 04/07/20 HPI HPI: 39-year-old male with diabetes since the age of 21 presented to the emergency department with a painful nasal lesion and right-sided facial swelling. The lesion first appeared as a bump of the inferior aspect of the right nare. Over the following 24 hours the lesion became more tender and grew. Patient tried to italia the painful lesion with a insulin syringe and needle but was unsuccessful. On April 05 he presented to his primary care physician's office where he was prescribed an antibiotic, Bactrim DS. Patient awoke this morning with right-sided facial swelling and faint erythema along with persistence of pain coming from the lesion of the right nostril and presented to the emergency department. In the emergency department patient was suspected of having a nasal abscess and the lesion was incised and drained. Approximately 2 mL's of purulent fluid was obtained and culture has been sent. Patient was given IV clindamycin in the emergency department and admitted for further evaluation and observation. Patient's white blood cell count was elevated. Since admission patient has been transitioned to vancomycin. Patient denies having fevers or chills. He denies body aches. He denies visual disturbance. Patient did have a headache on arrival to the floor that has successfully been treated with Tylenol. Regarding the patient's diabetes he does not know what his last A1c was. Patient has an Humalog insulin pump which he has not used in 48 hours. He is a noncompliant diabetic. Patient states the last time he checked his blood sugars his glucose read high . Patient denies complications of diabetes such as neuropathy, nephropathy, retinopathy. Patient has a personal history of hypertriglyceridemia causing pancreatitis Hospital Course Hospital Course: Patient was admitted for observation and IV antibiotics. Patient received clindamycin in the emergency department but was transitioned to vancomycin. Patient tolerated antibiotics. Patient noted improvement in facial pain and swelling almost immediately after I&D of the nasal lesion in the emergency department. Packing was removed later in the day and patient applied warm moist saline compresses. Patient had continuous small amounts of purulent drainage from the lesion with continued improvement in swelling and pain in the nose and right upper lip as well as the right face. Patient was observed. Patient remained afebrile. White count was 16,000 on admission and decreased to 14,000 on the day of discharge. Patient will finish the course of Bactrim DS prescribed him by his primary care physician Patient has uncontrolled diabetes with a hemoglobin A1c of 11.2. Patient is noncompliant. Patient was encouraged to start taking better care of himself in regards to his diabetes. It was explained to him that his uncontrolled diabetes did have an impact on his body's ability to fight off this infection. Patient voiced understanding. He will follow-up with his primary care physician on Thursday. He will follow-up with his barkeeper as scheduled in May Objective Vital signs: Temp Pulse Resp BP Pulse Ox 97.9 F 64 20 131/81 100 04/07/20 07:53 04/07/20 07:53 04/07/20 07:53 04/07/20 07:53 04/07/20 07:53 Results Labs on day of discharge: Labs from last 24 hours 04/07/20 04/07/20 04/07/20 06:39 06:39 05:36 WBC 14.6 H RBC 4.48 L Hgb 13.2 L D Hct 38.5 L MCV 85.9 MCH 29.4 MCHC 34.2 RDW 13.3 Plt Count 150 MPV 8.9 Neut % (Auto) 82.6 H Lymph % (Auto) 12.9 [place] % (Auto) 4.1 Eos % (Auto) 0.3 Baso % (Auto) 0.2 Neut # (Auto) 12.1 H Lymph # (Auto) 1.9 [place] # (Auto) 0.6 Eos # (Auto) 0.0 Baso # (Auto) 0.0 Total Counted Neutrophils % (Manual) Lymphocytes % (Manual) Monocytes % (Manual) Platelet Estimate
[2020-04-07 11:04] LABS: Vancomycin,Trough 12.2 ug/mL (5.0-10.0)
[2020-04-07 12:00] LABS: POC Glucose,Bedside 436 (70-110)
--- NOTE | 2020-04-07 12:21 | HMH.PHACONS ---
- Pharmacy Consult Date: 04/07/20 Time: 12:21 Referring provider: DR. LUCAS Reason for Consult:: VANCOMYCIN TROUGH LEVEL Allergies and ADEs:: Allergies Allergy/AdvReac Type Severity Reaction Status Date / Time Penicillins [PENICILLINS] Allergy Unknown Verified 05/16/18 16:20 Home Medications:: Home Medications Medication Instructions Recorded Confirmed Type Atorvastatin Calcium [Lipitor 40mg 40 mg PO HS 04/06/20 04/06/20 History Tab] Insulin Aspart [Novolog] 0 units SQ DIRECTED 04/06/20 04/06/20 History Losartan Potassium [Cozaar 50mg 50 mg PO DAILY 04/06/20 04/06/20 History Tablets] Metformin HCl [Metformin HCl ER] 1,000 mg PO BID 04/06/20 04/06/20 History Height: 1.73 m Weight: 96.303 kg Laboratory Results:: Laboratory Results - last 24 hr 04/06/20 08:11: Hemoglobin A1c 11.2 H 04/06/20 16:49: POC Glucose 365 H* 04/06/20 21:07: POC Glucose 474 H* 04/07/20 05:36: POC Glucose 265 H 04/07/20 06:39: WBC 14.6 H, RBC 4.48 L, Hgb 13.2 L D, Hct 38.5 L, MCV 85.9, MCH 29.4, MCHC 34.2, RDW 13.3, Plt Count 150, MPV 8.9, Neut % (Auto) 82.6 H, Lymph % (Auto) 12.9, [place] % (Auto) 4.1, Eos % (Auto) 0.3, Baso % (Auto) 0.2, Neut # (Auto) 12.1 H, Lymph # (Auto) 1.9, [place] # (Auto) 0.6, Eos # (Auto) 0.0, Baso # (Auto) 0.0 04/07/20 06:39: Sodium 132 L, Potassium 3.9, Chloride 104, Carbon Dioxide 18 L, Anion Gap 13.9, BUN 13, Creatinine 0.60 L, Estimated Creat Clear 223, Estimated GFR 149, Est GFR ( Amer) 181, Glucose 314 H, Calcium 8.5 04/07/20 10:20: Vancomycin Trough 12.2 H 04/07/20 11:36: POC Glucose 436 H* Medical History: Reports:: Diabetes Mellitus Type 1, Hyperlipidemia Denies:: Asthma, Cancer, Chronic Obstructive Pulmonary Disease (COPD), Diabetes Mellitus Type 2, MRSA Assessment and Plan (1) Nasal abscess Current visit: Yes Status: Acute Category: Medical Code(s): J34.0 - Abscess, furuncle and carbuncle of nose (2) Type 2 diabetes mellitus with hyperglycemia, with long-term current use of insulin Current visit: Yes Status: Acute Category: Medical Code(s): E11.65 - Type 2 diabetes mellitus with hyperglycemia; Z79.4 - superintendent container terminal (current) use of insulin - Assessment and plan all Dx Assessment and Plan for all problems:: BASED ON PATIENT FACTORS AND VANCOMYCIN TROUGH LEVEL, RECOMMEND CONTINUING VANCOMYCIN 1750 MG IV Q8H.
--- NOTE | 2020-04-07 14:30 | PC.NURSE ---
THIS RN PROVIDED D/C INSTRUCTIONS TO CONTINUE WARM COMPRESS ON NASAL ABSCESS, TO CLEAN HANDS BEFORE AND AFTER TOUCHING AREA WITH COMPRESS AND TO NOT SQUEEZE ABSCESS. NO NEW CONCERNS AT THIS TIME.
== END 2020-04-07 14:30 | disposition home or self-care (01) ==
LOC: ER 08:10 → 2ND 09:05
PROVIDERS: Admitting Provider Family Medicine; Emergency Provider Emergency Medicine; PCP Nurse Practitioner Family; Visit Provider Family Medicine
DX: J34.0 Abscess, furuncle and carbuncle of nose (principal); L03.211 Cellulitis of face; B95.61 Methicillin susceptible Staphylococcus aureus infection as the cause of diseases classified elsewhere; E11.65 Type 2 diabetes mellitus with hyperglycemia; Z79.4 Long term (current) use of insulin
CPT/HCPCS: 10060; 36415; 80048; 80053; 80202; 82009; 82803; 82962; 83036; 85007; 85025; 87070; 87077; 87186; 87205; 96365; 96367; 96375; 99284; G0378; J3370

== ENCOUNTER → 2020-10-26 12:14 | Outpatient (CLI) | payer OTHER, SELFPAY ==
[2020-10-26 12:44] LABS: Basophils % 0.4 % (0.1-2.0); Eosinophils # 0.1 K/mm3 (0.0-0.4); Eosinophils % 1.1 % (0.1-12.0); Hematocrit 42.7 % (42.0-52.0); Hemoglobin 14.4 g/dL (14.1-18.0); Lymphocytes # 2.2 K/mm3 (0.7-4.5); Lymphocytes % 22.7 % (10-50); Mean Corpuscular HGB Conc 33.7 g/dL (31.8-35.4); Mean Corpuscular Hemoglobin 26.7 pg (27.0-31.2); Mean Corpuscular Volume 79.1 fl (80-94); Mean Platelet Volume 8.7 fl (7.4-10.4); Monocytes # 0.5 K/mm3 (0.1-1.0); Monocytes % 5.1 % (1.7-9.3); Neutrophils # 6.8 K/mm3 (1.8-7.8); Neutrophils % 70.7 % (37.0-80.0); Platelet Count 189 K/mm3 (142-424); Red Blood Count 5.39 M/mm3 (4.60-6.20); Red Cell Distribution Width 16.4 % (11.5-17.5); White Blood Count 9.6 K/mm3 (4.8-10.8)
[2020-10-26 13:46] LABS: Chloride 100 mmol/L (98-107); Potassium 4.6 mmoL/L (3.5-5.1); Sodium 132 mmol/L (136-145)
[2020-10-26 13:48] LABS: Blood Urea Nitrogen 15 mg/dl (9-20); Estimated Glomerular Filt Rate 183 ml/min (>60); GFR (African American) 222 ML/MIN (>60)
[2020-10-26 13:49] LABS: Alanine Aminotransferase 18 U/L (12-78); Albumin Level 4.2 g/dl (3.5-5.0); Albumin/Globulin Ratio 1.3 (1.1-1.8); Alkaline Phosphatase 101 U/L (38-126); Anion Gap 14.6 mEq/L (5-15); Aspartate Amino Transferase 22 U/L (17-59); Bilirubin,Total 1.4 mg/dl (0.2-1.3); Calcium 9.2 mg/dl (8.4-10.2); Carbon Dioxide 22 mmol/L (22.0-30.0); Globulin 3.3 g/dL (1.3-3.2); Glucose 313 mg/dl (74-100); Iron 147 ug/dL (49-181); Total Protein,Serum 7.5 g/dl (6.3-8.2)
[2020-10-26 13:57] LABS: Total Iron Binding Capacity 413 ug/dL (261-462)
[2020-10-26 14:23] LABS: Ferritin 47.1 ng/ml (17.9-464)
== END ==
PROVIDERS: Visit Provider Internal Medicine Gastroenterology
DX: D64.9 Anemia, unspecified (principal); R74.8 Abnormal levels of other serum enzymes
CPT/HCPCS: 36415; 80053; 82728; 83540; 83550; 85025

== ENCOUNTER 2020-11-24 11:13 | Inpatient (IN) | payer OTHER, SELFPAY ==
[2020-11-24] VITALS (16 sets, daily range): BP systolic 103–164; BP diastolic 46–99; PULSE 86–110; RESP 16–18; TEMP 36.4–37; O2SAT 96–100; BMI 31.7; BMI 33.6
--- NOTE | 2020-11-24 11:29 | CT_ITS ---
PROCEDURE INFORMATION: Exam: CT Neck With Contrast Exam date and time: 11/24/2020 11:29 AM Age: 40 years old Clinical indication: Neck pain; Additional info: Posterior midline swelling TECHNIQUE: Imaging protocol: Computed tomography images of the neck with contrast. Radiation optimization: All CT scans at this facility use at least one of these dose optimization techniques: automated exposure control; mA and/or kV adjustment per patient size (includes targeted exams where dose is matched to clinical indication); or iterative reconstruction. Contrast material: ISOVUE; Contrast volume: 75 ml; Contrast route: IV; COMPARISON: [facility]WO CT CERVICAL SPINE W/O CONT 07/08/2016 3:49 AM FINDINGS: Nasopharynx: Unremarkable. Oropharynx: Unremarkable. No significant tonsillar enlargement. Hypopharynx: Unremarkable. Larynx: Unremarkable. Normal epiglottis. Retropharyngeal space: Unremarkable. Submandibular/Parotid glands: Normal. Glands are normal in size. Thyroid: Normal. No enlarged or calcified nodules. Lymph nodes: Unremarkable. No lymphadenopathy. Trachea: Visualized trachea is unremarkable. Lungs: Unremarkable as visualized. Bones/joints: Unremarkable. No acute fracture. Soft tissues: Induration of subcutaneous fat posteriorly along the midline. Associated skin thickening. No drainable collection or evidence of abscess. May be nonspecific cellulitis. IMPRESSION: Induration of subcutaneous fat posteriorly along the midline. Associated skin thickening. No drainable collection or evidence of abscess. May be nonspecific cellulitis.
--- NOTE | 2020-11-24 11:30 | HMH.EDGENADL ---
ED Disposition Clinical Impression: Cellulitis Qualifiers: Site of cellulitis: neck Qualified Code(s): L03.221 - Cellulitis of neck Disposition: Admitted as Observation Condition on Discharge: Good - Critical Care Critical Care Time: No Attestation: On 11/24/20, the high probability of a clinically significant, sudden or life threatening deterioration of the following system(s) required my full and direct attention, intervention and personal management. The time I documented below is in addition to time spent performing reported procedures but includes the following listed in this critical care notation. Medical Decision Making - Medical Records Medical records reviewed: Yes: I reviewed the patient's medical records. - [place] Inquiry Pt receiving controlled substance: No Vital Signs: 11/24/20 11:14 11/24/20 11:27 11/24/20 11:30 Temperature 98.2 F Temperature Source Oral Pulse Rate 106 H 106 H Pulse Rate [Left Radial] 110 H Respiratory Rate 18 Blood Pressure 164/96 H 156/96 H Blood Pressure [Right Arm] 164/96 H Blood Pressure Mean Blood Pressure Mean [Right Arm] 118 02 Sat by Pulse Oximetry 100 99 99 Oxygen Delivery Method Room Air 11/24/20 12:00 11/24/20 12:30 11/24/20 13:01 Temperature Temperature Source Pulse Rate 96 H 102 H 86 Pulse Rate [Left Radial] Respiratory Rate 18 Blood Pressure 137/83 137/86 132/87 Blood Pressure [Right Arm] Blood Pressure Mean 101 100 100 Blood Pressure Mean [Right Arm] 02 Sat by Pulse Oximetry 98 97 99 Oxygen Delivery Method 11/24/20 13:30 11/24/20 14:01 11/24/20 14:30 Temperature Temperature Source Pulse Rate 96 H 95 H Pulse Rate [Left Radial] Respiratory Rate Blood Pressure 143/88 H 103/46 L 146/90 H Blood Pressure [Right Arm] Blood Pressure Mean 105 68 103 Blood Pressure Mean [Right Arm] 02 Sat by Pulse Oximetry 100 98 96 Oxygen Delivery Method 11/24/20 15:00 11/24/20 15:15 11/24/20 15:30 Temperature Temperature Source Pulse Rate 96 H 93 H 104 H Pulse Rate [Left Radial] Respiratory Rate Blood Pressure 142/88 H 142/88 H 155/99 H Blood Pressure [Right Arm] Blood Pressure Mean 98 Blood Pressure Mean [Right Arm] 02 Sat by Pulse Oximetry 97 96 97 Oxygen Delivery Method 11/24/20 16:30 Temperature 98.2 F Temperature Source Pulse Rate 104 H Pulse Rate [Left Radial] Respiratory Rate 18 Blood Pressure 155/99 H Blood Pressure [Right Arm] Blood Pressure Mean Blood Pressure Mean [Right Arm] 02 Sat by Pulse Oximetry Oxygen Delivery Method Room Air - Lab Data Lab Results 11/24/20 11:47: WBC 16.2 H, RBC 5.39, Hgb 15.3, Hct 46.4, MCV 85.9, MCH 28.4, MCHC 33.1, RDW 16.0, Plt Count 209, MPV 9.7, Neut % (Auto) 81.3 H, Lymph % (Auto) 12.7, [place] % (Auto) 3.9, Eos % (Auto) 1.5, Baso % (Auto) 0.6, Neut # (Auto) 13.1 H, Lymph # (Auto) 2.1, [place] # (Auto) 0.6, Eos # (Auto) 0.2, Baso # (Auto) 0.1, Total Counted 100, Neutrophils % (Manual) 90 H, Lymphocytes % (Manual) 8 L, Monocytes % (Manual) 2, Platelet Estimate Normal, Microcytosis 1+ 11/24/20 11:47: Sodium 127 L, Potassium 4.9, Chloride 97 L, Carbon Dioxide 17 L, Anion Gap 18.7 H, BUN 11, Creatinine 0.50 L, Estimated Creat Clear 261, Estimated GFR 183, Est GFR ( Amer) 222, Glucose 335 H, Calcium 9.2 Result diagrams: 11/24/20 11:47 11/24/20 11:47 Orders (Tests/Meds): ED MEDICATIONS Generic Name Dose Route Start Last Admin Trade Name Freq PRN Reason Stop Dose Admin Hydrocodone Bitart/Acetaminophen 1 tab 11/24/20 16:11 11/24/20 18:57 Hydrocodone/Apap 5/325 Mg Tablet PO 12/24/20 14:33 1 tab Q4HP PRN Administration Mild to Moderate Pain Clindamycin Phosphate 900 mg/ 106 mls @ 100 mls/hr 11/24/20 23:00 Sodium Chloride IV 12/08/20 22:59 Q8H PROSPER Protocol Ondansetron HCl 4 mg 11/24/20 16:11 Ondansetron 4mg/2ml Vial IV 12/24/20 14:33 Q8HP PRN Nausea Disconti
[2020-11-24 11:58] LABS: Basophils # 0.1 K/mm3 (0-0.2); Basophils % 0.6 % (0.1-2.0); Eosinophils # 0.2 K/mm3 (0.0-0.4); Eosinophils % 1.5 % (0.1-12.0); Hematocrit 46.4 % (42.0-52.0); Hemoglobin 15.3 g/dL (14.1-18.0); Lymphocytes # 2.1 K/mm3 (0.7-4.5); Lymphocytes % 12.7 % (10-50); Mean Corpuscular HGB Conc 33.1 g/dL (31.8-35.4); Mean Corpuscular Hemoglobin 28.4 pg (27.0-31.2); Mean Corpuscular Volume 85.9 fl (80-94); Mean Platelet Volume 9.7 fl (7.4-10.4); Monocytes # 0.6 K/mm3 (0.1-1.0); Monocytes % 3.9 % (1.7-9.3); Neutrophils # 13.1 K/mm3 (1.8-7.8); Neutrophils % 81.3 % (37.0-80.0); Platelet Count 209 K/mm3 (142-424); Red Blood Count 5.39 M/mm3 (4.60-6.20); White Blood Count 16.2 K/mm3 (4.8-10.8)
[2020-11-24 12:00] LABS: MANUAL DIFFERENTIAL MANUAL DIFFERENTIAL (MANUAL DIFF)
[2020-11-24 12:05] LABS: Anion Gap 18.7 mEq/L (5-15); Blood Urea Nitrogen 11 mg/dl (9-20); Calcium 9.2 mg/dl (8.4-10.2); Carbon Dioxide 17 mmol/L (22.0-30.0); Chloride 97 mmol/L (98-107); Creatinine Clearance Estimated 261 mL/min (50-200); Estimated Glomerular Filt Rate 183 ml/min (>60); GFR (African American) 222 ML/MIN (>60); Glucose 335 mg/dl (74-100)
[2020-11-24 12:28] LABS: Sodium 127 mmol/L (136-145)
[2020-11-24 12:29] LABS: Potassium 4.9 mmoL/L (3.5-5.1)
[2020-11-24 12:55] LABS: Lymphocytes % 8 % (10-50); Monocytes % 2 % (2-9); Neutrophils % 90 % (42-76); Total Cells Counted 100
[2020-11-24 12:56] LABS: Microcytosis 1+; Platelet Estimate Normal
--- NOTE | 2020-11-24 13:08 | PC.NURSE ---
Notified pharmacy of need of vancomycin per ER physician verbal order
--- NOTE | 2020-11-24 14:46 | PC.NURSE ---
covid swab sent to lab
--- NOTE | 2020-11-24 15:48 | PC.NURSE ---
GAVE REPORT TO LORENZO CALLE AT THIS TIME ON 2ND FLOOR
--- NOTE | 2020-11-24 16:35 | PC.NURSE ---
PT arrived to the floor at this time.
--- NOTE | 2020-11-24 18:22 | PC.WOUNDNOTE ---
Dime-sized pustule located on the back of the neck under the hairline
--- NOTE | 2020-11-25 03:02 | PC.NURSE ---
A&OX4. TOLERATING RA WELL. PT UP INDEPENDENTLY IN ROOM. AT BEDSIDE. PT HAS MULTIPLE SMALL PUSTULES ON BACK OF NECK UNDER HAIRLINE. AREAS ARE WHITE AT THE TIP. AREA IS REDDENED AROUND. SINCE BEGINNING OF SHIFT, REDDENED AREA AND WARMTH HAS SPREAD FARTHER AROUND PT NECK. PT HAS C/O PAIN ON M[place]ART[place] OF NECK AND DOWN INTO HIS UPPER BACK AND SHOULDERS. TX WITH PRN MED, ON REASSESSMENT PT RESTING IN BED. AREA MARKED TO BE ABLE TO TRACK REDNESS. PT RECEIVING ABX THIS SHIFT. NO OTHER C/O THUS FAR, VSS WILL CONTINUE TO MONITOR.
[2020-11-25 03:35] VITALS: BP 153/81; PULSE 98; RESP 15; TEMP 36.9; O2SAT 99
[2020-11-25 05:07] VITALS: BMI 33.5
[2020-11-25 07:00] LABS: Basophils # 0.1 K/mm3 (0-0.2); Eosinophils # 0.1 K/mm3 (0.0-0.4); Lymphocytes # 2.2 K/mm3 (0.7-4.5); Red Cell Distribution Width 15.9 % (11.5-17.5); White Blood Count 12.7 K/mm3 (4.8-10.8)
[2020-11-25 07:04] LABS: Basophils % 0.5 % (0.1-2.0); Eosinophils % 0.9 % (0.1-12.0); Hematocrit 40.2 % (42.0-52.0); Lymphocytes % 17.5 % (10-50); Mean Corpuscular Hemoglobin 28.4 pg (27.0-31.2); Mean Corpuscular Volume 86.2 fl (80-94); Mean Platelet Volume 9.3 fl (7.4-10.4); Monocytes # 0.7 K/mm3 (0.1-1.0); Monocytes % 5.4 % (1.7-9.3); Neutrophils # 9.6 K/mm3 (1.8-7.8); Neutrophils % 75.8 % (37.0-80.0); Platelet Count 165 K/mm3 (142-424); Red Blood Count 4.66 M/mm3 (4.60-6.20)
[2020-11-25 07:05] LABS: Hemoglobin 13.3 g/dL (14.1-18.0)
[2020-11-25 07:16] LABS: Blood Urea Nitrogen 12 mg/dl (9-20); Carbon Dioxide 22 mmol/L (22.0-30.0); Chloride 98 mmol/L (98-107); Creatinine Clearance Estimated 209 mL/min (50-200); Estimated Glomerular Filt Rate 148 ml/min (>60); GFR (African American) 180 ML/MIN (>60)
[2020-11-25 07:17] LABS: Glucose 291 mg/dl (74-100); Potassium 4.6 mmoL/L (3.5-5.1)
[2020-11-25 07:18] LABS: Anion Gap 15.6 mEq/L (5-15); Calcium 8.9 mg/dl (8.4-10.2); Sodium 131 mmol/L (136-145)
[2020-11-25 07:23] VITALS: BP 143/85; PULSE 92; RESP 16; TEMP 36.7; O2SAT 98
[2020-11-25 07:25] VITALS: BMI 28.0
[2020-11-25 07:53] VITALS: PULSE 92; RESP 16; O2SAT 98
--- NOTE | 2020-11-25 08:32 | PC.NURSE ---
Dr. Morrison notified of consult.
--- NOTE | 2020-11-25 08:34 | HMH.HP ---
*Admission Date: 11/24/20 *Chief complaint: Neck abscess, failed outpatient therapy *History of present illness: 40-year-old white male with history of insulin requiring diabetes, and recently-May 2020-diagnosed splenic vein thrombosis along with subsegmental pulmonary emboli who has been placed on Eliquis since that time, who developed a swelling and redness at the base of his neck approximately 6 days ago. Saw his primary care provider-a nurse practitioner in [place]-who placed him on Bactrim but this has failed to improve his situation. Increasing pain and swelling prompted him to come to the emergency department. Found to have a fairly significant cellulitis/abscess on the nape of the neck extending into the upper back. Because of his diabetes, failed outpatient therapy, etc. he was admitted with vancomycin and clindamycin therapy. Patient reports his last dose of Eliquis was Thursday morning 11/23. He does not recall if he had been worked up for clotting disorder. Does not really recall who is managing his thrombotic therapy. Does follow with endocrinology for his diabetic management. [facility] History I have reviewed the patient's past medical history: Yes Medical History: Reports:: Diabetes Mellitus Type 2, Hyperlipidemia, Hypertension Denies:: Asthma, Cancer, Chronic Obstructive Pulmonary Disease (COPD), Diabetes Mellitus Type 1, MRSA *Have you ever received a pneumonia vaccine?: No *Have you received a flu vaccine this season?: No Other Medical History: Reports: Arthritis Laterality Cases: Left: Arthroscopy Knee, Bilateral: Myringotomy (Ear Tubes), Tonsillectomy Other Surgeries: Yes: Colonoscopy, EGD Amputation: No Fractures: No - *Social History Last grade of school completed: High school graduate Smoking Status: Never smoker Tobacco Type: smokeless tobacco # Packs/Day (cigarettes): 0 #Yrs smoked (if former smoker): 0 Alcohol Intake: never Alcohol Intake Frequency:: other Substance Use Type: denies use *Occupational Status:: employed Housing: house Household Members: significant other *Travel in the last 8 weeks: None Family Hx:: Diabetes, Heart Attack, Hyperlipidemia, Hypertension Review of Systems - Review of Systems Review of systems:: pertinent systems reviewed and negative unless documented below - Constitutional Reports fever(s), Denies anorexia, Denies chills - *Cardiovascular Denies chest pain, Denies excessive sweating, Denies shortness of breath, Denies generalized swelling - *Respiratory Denies change in phlegm color, Denies chest congestion, Denies cough Meds Home Medications Medication Instructions Recorded Confirmed Type Insulin Aspart [Novolog] 15 units SQ DIRECTED 04/06/20 11/24/20 History Metformin HCl [Metformin HCl ER] 1,000 mg PO BID 04/06/20 11/24/20 History Apixaban [Eliquis] 5 mg PO DAILY 11/24/20 11/24/20 History Evolocumab [Repatha Syringe] 140 mg IM DIRECTED 11/24/20 11/24/20 History Icosapent Ethyl [Vascepa] 2 gm PO BID 11/24/20 11/24/20 History Pantoprazole Sodium 40 mg PO BID 11/24/20 11/24/20 History Allergies Allergy/AdvReac Type Severity Reaction Status Date / Time Penicillins [PENICILLINS] Allergy Unknown Verified 05/16/18 16:20 Exam Vital signs and Labs for Last 24 Hours: Temp Pulse Resp BP Pulse Ox 98.0 F 92 H 16 143/85 H 98 11/25/20 07:23 11/25/20 07:53 11/25/20 07:53 11/25/20 07:23 11/25/20 07:53 Laboratory Results - last 24 hr 11/24/20 11:47: WBC 16.2 H, RBC 5.39, Hgb 15.3, Hct 46.4, MCV 85.9, MCH 28.4, MCHC 33.1, RDW 16.0, Plt Count 209, MPV 9.7, Neut % (Auto) 81.3 H, Lymph % (Auto) 12.7, [place] % (Auto) 3.9, Eos % (Auto) 1.5, Baso % (Auto) 0.6, Neut # (Auto) 13.1 H, Lymph # (Auto) 2.1, [place] # (Auto) 0.6, Eos # (Auto) 0.2, Baso # (Auto) 0.1, Total Counted 100, Neutrophils % (Manual) 90 H, Lymphocytes % (Manual) 8 L, Monocytes % (Manual) 2, Platelet Estimate Normal, Microcytosis 1+ 11/24/20 11:47: Sodium 127 L, Potassium 4.9, Chlorid
--- NOTE | 2020-11-25 10:06 | HMH.GSCON ---
*Admission Date: 11/24/20 *Reason for consult:: Posterior neck abscessed cyst *History of present illness: This is a 40-year-old gentleman seen in consultation from Dr. Gaston for evaluation regarding a posterior neck abscessed cyst. Please see truncated HPI from admission H&P forwarded below. Forwarded from admission H&P (truncated): 40-year-old white male with history of insulin requiring diabetes, and recently-May 2020-diagnosed splenic vein thrombosis along with subsegmental pulmonary emboli [facility] who has been placed on Eliquis since that time, who developed a swelling and redness at the base of his neck approximately 6 days ago. Saw his primary care provider-a nurse practitioner in [place]-who placed him on Bactrim but this has failed to improve his situation....Because of his diabetes, failed outpatient therapy, etc. he was admitted with vancomycin and clindamycin therapy...Patient reports his last dose of Eliquis was Thursday morning 11/23. NOTE: The patient currently states that he takes the Eliquis at night . He states that his last dose of Eliquis was Thursday evening and that he did not receive Thursday evening's dose secondary to coming into the emergency room . Review of Systems - Constitutional Denies chills - Eyes Denies change in vision - ENT Denies difficulty swallowing - *Cardiovascular Denies chest pain - *Respiratory Denies cough - *Gastrointestinal Denies pain with swallowing - *Musculoskeletal Denies deformity - Integumentary/Breasts Reports redness, Reports boil - *Neurologic Denies confusion - Psychiatric Denies anxiety - Endocrine Denies cold intolerance - Hematologic/Lymphatic Reports easy bruising - Allergic/Immunologic Denies hives [facility] History Medical History: Reports:: Diabetes Mellitus Type 2, Hyperlipidemia, Hypertension Denies:: Asthma, Cancer, Chronic Obstructive Pulmonary Disease (COPD), Diabetes Mellitus Type 1, MRSA *Have you ever received a pneumonia vaccine?: No *Have you received a flu vaccine this season?: No Other Medical History: Reports: Arthritis Laterality Cases: Left: Arthroscopy Knee, Bilateral: Myringotomy (Ear Tubes), Tonsillectomy Other Surgeries: Yes: Colonoscopy, EGD Amputation: No Fractures: No - *Social History Last grade of school completed: High school graduate Smoking Status: Never smoker Tobacco Type: smokeless tobacco # Packs/Day (cigarettes): 0 #Yrs smoked (if former smoker): 0 Alcohol Intake: never Alcohol Intake Frequency:: other Substance Use Type: denies use *Occupational Status:: employed Housing: house Household Members: significant other *Travel in the last 8 weeks: None Family Hx:: Diabetes, Heart Attack, Hyperlipidemia, Hypertension Meds Home Medications Medication Instructions Recorded Confirmed Type Insulin Aspart [Novolog] 15 units SQ DIRECTED 04/06/20 11/24/20 History Metformin HCl [Metformin HCl ER] 1,000 mg PO BID 04/06/20 11/24/20 History Apixaban [Eliquis] 5 mg PO DAILY 11/24/20 11/24/20 History Evolocumab [Repatha Syringe] 140 mg IM DIRECTED 11/24/20 11/25/20 History Icosapent Ethyl [Vascepa] 2 gm PO BID 11/24/20 11/24/20 History Pantoprazole Sodium 40 mg PO BID 11/24/20 11/24/20 History Allergies Allergy/AdvReac Type Severity Reaction Status Date / Time Penicillins [PENICILLINS] Allergy Unknown Verified 05/16/18 16:20 Exam Vital signs and Labs for Last 24 Hours: Temp Pulse Resp BP Pulse Ox 98.0 F 92 H 16 143/85 H 98 11/25/20 07:23 11/25/20 07:53 11/25/20 07:53 11/25/20 07:23 11/25/20 07:53 Laboratory Results - last 24 hr 11/24/20 11:47: WBC 16.2 H, RBC 5.39, Hgb 15.3, Hct 46.4, MCV 85.9, MCH 28.4, MCHC 33.1, RDW 16.0, Plt Count 209, MPV 9.7, Neut % (Auto) 81.3 H,
[2020-11-25 12:11] LABS: POC Glucose,Bedside 303 (70-110)
--- NOTE | 2020-11-25 14:16 | P.CONPHA_ITS ---
[facility] Pharmacy VTE Monitoring - Patient Demographics Admission date: 11/24/20 Report Date: 11/25/20 Time: 14:16 Allergies/Adverse Reactions: Patient Allergies Penicillins [PENICILLINS] Allergy (Unknown, Verified 05/16/18 16:20) Height: 1.75 m Weight: 86.183 kg Patient Problems: Current Active Problems Type 2 diabetes mellitus with hyperglycemia, with long-term current use of insulin (Acute) Cellulitis (Acute) History of pulmonary embolism (Acute) Cutaneous abscess of neck (Acute) - VTE Risk Labs: VTE Related Lab Results Hgb 13.3 g/dL (14.1-18.0) L D 11/25/20 06:13 Hct 40.2 % (42.0-52.0) L 11/25/20 06:13 Plt Count 165 K/mm3 (142-424) 11/25/20 06:13 BUN 12 mg/dl (9-20) 11/25/20 06:13 Creatinine 0.60 mg/dl (0.66-1.25) L 11/25/20 06:13 Estimated Creat Clear 209 mL/min (50-200) 11/25/20 06:13 VTE Score: 2 - Prophylaxis VTE Prophylaxis Ordered?: Yes Types of VTE Prophylaxis: TEDS Knee High Location of Applied Device: Bilateral Lower Extremeties
[2020-11-25 15:03] VITALS: BP 138/76; PULSE 97; RESP 18; TEMP 36.7; O2SAT 97
[2020-11-25 16:35] LABS: POC Glucose,Bedside 381 (70-110)
--- NOTE | 2020-11-25 17:22 | PC.NURSE ---
Pt has been pleasant and cooperative this shift. A&O X4. Pt has complained of pain X2 thus far today and has been medicated with [facility] per MAR. Pt is on room air with sats. >90%. Lungs CTA. No edema noted. Dime-sized pustule noted to the back of the neck below the hairline, covered with a bandaid. Pt ambulates independently to/from the bathroom and throughout the room. Pt uses the toilet to void clear, yellow urine without issue. No BM today. FSBS results have been 303 and 381, both of which have required insulin coverage per sliding scale. Pt is ordered to be NPO after midnight for surgery tomorrow, consent has been signed and placed on chart. 18 G peripheral IV in the LT AC is patent and SL. VSS. Call light within reach. Will continue to monitor.
[2020-11-25 20:00] VITALS: BP 159/82; PULSE 97; RESP 16; TEMP 37; O2SAT 98
[2020-11-26] VITALS (20 sets, daily range): BP systolic 108–177; BP diastolic 70–99; PULSE 81–105; RESP 14–18; TEMP 36.3–37; O2SAT 93–100; BMI 28.8; BMI 28.7
--- NOTE | 2020-11-26 03:39 | PC.NURSE ---
No acute changes overnight. Pt has c/o pain in the back of his neck, pain meds given per mar with favorable results. Lungs CTA, on room air. Abscess on neck is covered with a bandaid. Bowel sounds x4, abd soft and nontender. pt independent with ambulation to BR. at bedside t/o shift. IV patent, SL. VSS, call light in reach, no concerns at this time.
[2020-11-26 06:24] LABS: POC Glucose,Bedside 289 (70-110)
--- NOTE | 2020-11-26 06:29 | HMH.GSPN ---
Subjective Patient reports: no new complaints, still having pain Progress Note: A&P (1) History of pulmonary embolism Status: Acute (2) Cellulitis Status: Acute (3) Type 2 diabetes mellitus with hyperglycemia, with long-term current use of insulin Status: Acute (4) Cutaneous abscess of neck Status: Acute Assessment and plan: Continue antibiotics as per primary service Incision and drainage/debridement scheduled for this morning I have discussed the risks and benefits including, but not limited to: Bleeding Infection Damage to surrounding tissue Inherent risks of sedation The patient agrees to proceed. Exam Vital signs and Labs for Last 24 Hours: Temp Pulse Resp BP Pulse Ox 97.4 F L 81 17 177/99 H 100 11/26/20 03:34 11/26/20 03:34 11/26/20 03:34 11/26/20 03:34 11/26/20 03:34 Laboratory Results - last 24 hr 11/25/20 06:13: WBC 12.7 H, RBC 4.66, Hgb 13.3 L D, Hct 40.2 L, MCV 86.2, MCH 28.4, MCHC 33.0, RDW 15.9, Plt Count 165, MPV 9.3, Neut % (Auto) 75.8, Lymph % (Auto) 17.5, [place] % (Auto) 5.4, Eos % (Auto) 0.9, Baso % (Auto) 0.5, Neut # (Auto) 9.6 H, Lymph # (Auto) 2.2, [place] # (Auto) 0.7, Eos # (Auto) 0.1, Baso # (Auto) 0.1 11/25/20 06:13: Sodium 131 L, Potassium 4.6, Chloride 98, Carbon Dioxide 22 D, Anion Gap 15.6 H, BUN 12, Creatinine 0.60 L, Estimated Creat Clear 209, Estimated GFR 148, Est GFR ( Amer) 180, Glucose 291 H, Calcium 8.9 11/25/20 11:02: POC Glucose 303 H* 11/25/20 16:07: POC Glucose 381 H* 11/26/20 05:28: POC Glucose 289 H I & O for Last 24 hours: Intake & Output 11/23/20 11/24/20 11/25/20 11/26/20 11:59 11:59 11:59 11:59 Intake Total 1020 / 1020 940 / 940 Output Total Balance 1020 / 1020 939 / 939 Weight 209 lb 190 lb 195 lb - Constitutional no acute distress - *Routine Neck Exam Comments: Unchanged posterior neck abscessed cyst - *Routine Respiratory Exam Absent: respiratory distress - *Routine Cardiovascular Exam Present: RRR
--- NOTE | 2020-11-26 06:32 | PC.NURSE ---
patient down to surgery.
--- NOTE | 2020-11-26 07:34 | P.OP_ITS ---
Date of procedure: 11/26/20 Pre-op Diagnosis:: Abscessed cyst along posterior neck Post-op Diagnosis:: Same Procedure performed:: Incision and drainage/debridement of abscessed cysts along posterior neck Surgeon:: Jesus Morrison MD Anesthesia: LMA Estimated blood loss (mL): 10 Operative findings:: Small centralized pockets of purulence with multiple surrounding microabsce sses Operative note:: After informed consent was obtained the patient was taken to the operating room and placed in the supine position. General anesthesia with laryngeal mask airway was achieved. He was then transferred to the right lateral decubitus position. The posterior neck was prepped and draped in a sterile fashion. The central portion of the lesion was excised with electrocautery through the deep subcutaneous tissue. Small pockets of purulence were encountered. Fluid was obtained for Gram stain/culture. The centralized tissue was debrided. No larger areas of abscess/fluid collection were noted; however, compression did reveal multiple microabscesses. The microabscesses were compressed and the entire area was then carefully irrigated. The wound was packed open with moistened gauze. 1% lidocaine was infiltrated in the entire region. Dressings were applied and the patient was transferred to recovery in stable condition. Condition: stable Disposition: PACU Specimens:: Fluid for Gram stain/culture Complications:: No immediate
[2020-11-26 07:57] LABS: POC Glucose,Bedside 289 (70-110)
--- NOTE | 2020-11-26 08:08 | PC.NURSE ---
Pt back in room, from surgery.
[2020-11-26 11:29] LABS: POC Glucose,Bedside 310 (70-110)
--- NOTE | 2020-11-26 13:13 | P.PN_ITS ---
Internal Medicine - PN: Subj *Date: 11/26/20 *Time: 13:13 Interval history: Patient did well with debridement surgery. Minimal pain. Surgery roots noted, consult appreciated. Exam Vital signs and Labs for Last 24 Hours: Temp Pulse Resp BP Pulse Ox 98.4 F 93 H 16 140/88 96 11/26/20 07:44 11/26/20 08:04 11/26/20 08:04 11/26/20 08:04 11/26/20 08:04 Laboratory Results - last 24 hr 11/25/20 16:07: POC Glucose 381 H* 11/26/20 05:28: POC Glucose 289 H 11/26/20 07:51: POC Glucose 289 H 11/26/20 11:14: POC Glucose 310 H* I & O for Last 24 hours: Intake & Output 11/24/20 11/25/20 11/26/20 11/27/20 11:59 11:59 11:59 11:59 Intake Total 1020 / 1020 1300 / 1300 Output Total Balance 1020 / 1020 1299 / 1299 Weight 209 lb 190 lb 194 lb 0.108 oz Microbiology Reports for the Last 24 Hours: Microbiology 11/26/20 07:20 Neck - Abscess Gram Stain - Final Narrative: Alert, pleasant, dressing and packing in place. Lungs are clear. Abdomen soft, skin otherwise clear of rashes. 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 Possible discharge home tomorrow
--- NOTE | 2020-11-26 13:42 | HMH.ANESCL ---
[facility] Anesthesia Checklist - Patient Identification Patient Identification: Arm Band - Structural Data Admitted From: Inpatient Planned Operative Procedure/s: I & D posterior neck abscess Consent for Planned Operative Procedure(s) Verified: Yes Verified Documents: Surgical Consent, History and Physical - NPO Status Verified Time NPO: 00:00 - Airway Assessment C-Spine Mobility Assessed: Yes TMJ Mobility Assessed: Yes Dentition: Good Dentition - Neurological Assessment Level of Consciousness: Awake, Alert - Anesthesia Plan Anesthesia Risk discussed: Yes Anesthesia Plan: Verified ASA Class: III Anesthesia Type: General [facility] History Medical History: Reports:: Diabetes Mellitus Type 2, Hyperlipidemia, Hypertension Denies:: Asthma, Cancer, Chronic Obstructive Pulmonary Disease (COPD), Diabetes Mellitus Type 1, MRSA *Have you ever received a pneumonia vaccine?: No *Have you received a flu vaccine this season?: No Other Medical History: Reports: Arthritis Anesthesia experience/problems:: None Laterality Cases: Left: Arthroscopy Knee, Bilateral: Myringotomy (Ear Tubes), Tonsillectomy Other Surgeries: Yes: Colonoscopy, EGD Amputation: No Fractures: No - *Social History Last grade of school completed: High school graduate Smoking Status: Never smoker Tobacco Type: smokeless tobacco # Packs/Day (cigarettes): 0 #Yrs smoked (if former smoker): 0 Alcohol Intake: never Alcohol Intake Frequency:: other Substance Use Type: denies use *Occupational Status:: employed Housing: house Household Members: significant other *Travel in the last 8 weeks: None Family Hx:: Diabetes, Heart Attack, Hyperlipidemia, Hypertension
--- NOTE | 2020-11-26 13:44 | HMH.ANESI ---
[facility] Anesthesia Record Part I Intake, IV Amount: 500 Estimated blood loss (mL): 2 Urine output (mL): 0 Blood Pressure: 156/86 SaO2: 95 Pulse Rate: 105 Respiratory Rate: 14 Temperature: 98.4 F Patient is:: Awake, Drowsy Stable to PACU at:: 08:54
[2020-11-26 16:26] LABS: POC Glucose,Bedside 367 (70-110)
[2020-11-26 21:05] LABS: POC Glucose,Bedside 403 (70-110)
[2020-11-26 21:05] LABS: POC Glucose,Bedside 421 (70-110)
[2020-11-27] VITALS (7 sets, daily range): BP systolic 122–151; BP diastolic 76–89; PULSE 80–100; RESP 16–20; TEMP 36.4–36.8; O2SAT 96–99; BMI 28.7
--- NOTE | 2020-11-27 03:03 | PC.NURSE ---
No acute changes overnight. A&O. Pt has c/o minimal pain in neck and lymph nodes, denied pain medication. Able to ambulate independently in room, tolerates well. Drsg on back of neck is CDI. FSBG was 421 at 2100, Dr. Navarro gave order for 16 units SSI, and to be switched to high intensity SSI. Pt has slept well this shift. IV patent, SL. VSS, call light in reach, no concerns at this time.
[2020-11-27 06:39] LABS: POC Glucose,Bedside 327 (70-110)
[2020-11-27 07:02] LABS: Basophils % 0.5 % (0.1-2.0); Eosinophils # 0.1 K/mm3 (0.0-0.4); Eosinophils % 1.3 % (0.1-12.0); Hematocrit 41.8 % (42.0-52.0); Hemoglobin 13.9 g/dL (14.1-18.0); Lymphocytes # 2.2 K/mm3 (0.7-4.5); Lymphocytes % 26.1 % (10-50); Mean Corpuscular HGB Conc 33.3 g/dL (31.8-35.4); Mean Corpuscular Hemoglobin 28.1 pg (27.0-31.2); Mean Corpuscular Volume 84.3 fl (80-94); Monocytes # 0.5 K/mm3 (0.1-1.0); Monocytes % 5.5 % (1.7-9.3); Neutrophils # 5.6 K/mm3 (1.8-7.8); Neutrophils % 66.6 % (37.0-80.0); Platelet Count 211 K/mm3 (142-424); Red Blood Count 4.95 M/mm3 (4.60-6.20); Red Cell Distribution Width 16.1 % (11.5-17.5); White Blood Count 8.4 K/mm3 (4.8-10.8)
[2020-11-27 07:09] LABS: Alanine Aminotransferase 17 U/L (12-78); Albumin Level 3.9 g/dl (3.5-5.0); Albumin/Globulin Ratio 1.1 (1.1-1.8); Alkaline Phosphatase 107 U/L (38-126); Anion Gap 10.1 mEq/L (5-15); Aspartate Amino Transferase 18 U/L (17-59); Bilirubin,Total 0.7 mg/dl (0.2-1.3); Blood Urea Nitrogen 12 mg/dl (9-20); Calcium 9.1 mg/dl (8.4-10.2); Carbon Dioxide 28 mmol/L (22.0-30.0); Chloride 101 mmol/L (98-107); Creatinine Clearance Estimated 202 mL/min (50-200); Estimated Glomerular Filt Rate 148 ml/min (>60); GFR (African American) 180 ML/MIN (>60); Globulin 3.5 g/dL (1.3-3.2); Glucose 340 mg/dl (74-100); Potassium 4.1 mmoL/L (3.5-5.1); Sodium 135 mmol/L (136-145); Total Protein,Serum 7.4 g/dl (6.3-8.2)
--- NOTE | 2020-11-27 07:17 | HMH.GSPN ---
Subjective Narrative: Complains of some soreness posterior neck area. Tender anterior adenopathy. Progress Note: A&P (1) History of pulmonary embolism Status: Acute (2) Cellulitis Status: Acute (3) Type 2 diabetes mellitus with hyperglycemia, with long-term current use of insulin Status: Acute (4) Cutaneous abscess of neck Status: Acute Assessment and Plan for All Diagnoses:: Possible discharge on oral antibiotics and wound care. Exam Vital signs and Labs for Last 24 Hours: Temp Pulse Resp BP Pulse Ox 97.8 F 80 18 122/80 97 11/27/20 04:00 11/27/20 04:00 11/27/20 04:00 11/27/20 04:00 11/27/20 04:00 Laboratory Results - last 24 hr 11/26/20 07:51: POC Glucose 289 H 11/26/20 11:14: POC Glucose 310 H* 11/26/20 16:08: POC Glucose 367 H* 11/26/20 20:07: POC Glucose 403 H* 11/26/20 20:14: POC Glucose 421 H* 11/27/20 06:24: POC Glucose 327 H* 11/27/20 06:47: Sodium 135 L, Potassium 4.1, Chloride 101, Carbon Dioxide 28 D, Anion Gap 10.1, BUN 12, Creatinine 0.60 L, Estimated Creat Clear 202, Estimated GFR 148, Est GFR ( Amer) 180, Glucose 340 H, Calcium 9.1, Total Bilirubin 0.7, AST 18, ALT 17, Alkaline Phosphatase 107, Total Protein 7.4, Albumin 3.9, Globulin 3.5 H, Albumin/Globulin Ratio 1.1 I & O for Last 24 hours: Intake & Output 11/24/20 11/25/20 11/26/20 11/27/20 11:59 11:59 11:59 11:59 Intake Total 1020 / 1020 1300 / 1300 1820 / 1820 Output Total Balance 1020 / 1020 1299 / 1299 1820 / 1820 Weight 209 lb 190 lb 194 lb 0.108 oz 194 lb 0.108 oz Microbiology Reports for the Last 24 Hours: Microbiology 11/26/20 07:20 Neck - Abscess Gram Stain - Final - *Routine Neck Exam Comments: Wound is clean with some minor induration.
--- NOTE | 2020-11-27 09:03 | HMH.ACPN2 ---
Internal Medicine - PN: Subj *Date: 11/27/20 *Time: 11:58 Interval history: Continues to have neck stiffness and tenderness in posterior neck. Remains afebrile. Wound somewhat less sore compared to yesterday. Tolerating p.o. intake with no nausea or vomiting. Family has not been educated on wound care yet. Still pending wound cultures. Exam Vital signs and Labs for Last 24 Hours: Temp Pulse Resp BP Pulse Ox 97.8 F 88 20 135/89 99 11/27/20 07:39 11/27/20 07:39 11/27/20 07:39 11/27/20 07:39 11/27/20 08:00 Laboratory Results - last 24 hr 11/26/20 11:14: POC Glucose 310 H* 11/26/20 16:08: POC Glucose 367 H* 11/26/20 20:07: POC Glucose 403 H* 11/26/20 20:14: POC Glucose 421 H* 11/27/20 06:24: POC Glucose 327 H* 11/27/20 06:47: WBC 8.4 D, RBC 4.95, Hgb 13.9 L, Hct 41.8 L, MCV 84.3, MCH 28.1, MCHC 33.3, RDW 16.1, Plt Count 211 D, MPV 9.0, Neut % (Auto) 66.6, Lymph % (Auto) 26.1, [place] % (Auto) 5.5, Eos % (Auto) 1.3, Baso % (Auto) 0.5, Neut # (Auto) 5.6, Lymph # (Auto) 2.2, [place] # (Auto) 0.5, Eos # (Auto) 0.1, Baso # (Auto) 0.0 11/27/20 06:47: Sodium 135 L, Potassium 4.1, Chloride 101, Carbon Dioxide 28 D, Anion Gap 10.1, BUN 12, Creatinine 0.60 L, Estimated Creat Clear 202, Estimated GFR 148, Est GFR ( Amer) 180, Glucose 340 H, Calcium 9.1, Total Bilirubin 0.7, AST 18, ALT 17, Alkaline Phosphatase 107, Total Protein 7.4, Albumin 3.9, Globulin 3.5 H, Albumin/Globulin Ratio 1.1 I & O for Last 24 hours: Intake & Output 11/24/20 11/25/20 11/26/20 11/27/20 23:59 23:59 23:59 23:59 Intake Total 540 / 540 1420 / 1420 2180 / 2180 240 / 240 Output Total 0 / 0 Balance 540 / 540 1419 / 1419 2180 / 2180 240 / 240 Weight 91.682 kg 86.183 kg 88 kg 88 kg Microbiology Reports for the Last 24 Hours: Microbiology 11/26/20 07:20 Neck - Abscess Gram Stain - Final 11/26/20 07:20 Neck - Abscess Abscess Culture - Preliminary NO GROWTH AFTER 24 HOURS - Constitutional no acute distress - *Routine HEENT Exam Head: Present: normocephalic Eye: Present: EOMI, PERRL ENT: Present: mucous membranes moist - *Routine Neck Exam Absent: lymphadenopathy Comments: Sore bilateral SCM muscles. wound on posterior neck with decreasing enduration, erythema. - *Routine Respiratory Exam Present: CTA bilaterally - *Routine Cardiovascular Exam Present: RRR - *Routine Abdominal Exam Present: soft, normoactive bowel sounds. Absent: tenderness - *Routine Extremities Exam Absent: cyanosis, clubbing, edema - *Routine Skin Exam Present: warm. Absent: rash - *Routine Neurological Exam Present: alert, oriented X3 Assessment and Plan (1) Cutaneous abscess of neck Status: Acute Category: Medical Code(s): L02.11 - Cutaneous abscess of neck (2) History of pulmonary embolism Status: Acute Category: Medical Code(s): Z86.711 - Personal history of pulmonary embolism (3) Cellulitis Status: Acute Qualifiers: Site of cellulitis: neck Qualified Code(s): L03.221 - Cellulitis of neck Category: Medical Code(s): L03.90 - Cellulitis, unspecified (4) Type 2 diabetes mellitus with hyperglycemia, with long-term current use of insulin Status: Acute Category: Medical Code(s): E11.65 - Type 2 diabetes mellitus with hyperglycemia; Z79.4 - [facility] (current) use of insulin - Assessment and plan all Dx Assessment and Plan for all problems:: Patient showing general improvement though still significantly sore in his neck. Wound culture still pending. We will plan to continue IV antibiotics today, educate family on wound care. If continues to improve clinically over the next 24 hours with stable labs, will plan for discharge home tomorrow on oral antibiotic regimen with clear wound care instructions and close follow-up with surgery. In regard to diabetes, continue sliding scale insulin. Patient uses a pump at home. Does not have his equipment wit
--- NOTE | 2020-11-27 10:45 | PC.NURSE ---
Addendum entered by Solange Alex RN 11/27/20 13:51: Dressing change consisted of saline soaked kerlix to pack the wound, 4x4 sponges, and perforated tape. was educated on dressing changes being performed BID. and pt both verbalized understanding. Original Note: Dressing change performed at this time. educated on dressing change process, verbalized understanding. Pt tolerated dressing change well. Moderate amount of serosangeuineous drainage on packing and gauze pads.
--- NOTE | 2020-11-27 14:21 | P.PN_ITS ---
Internal Medicine - PN: Subj *Date: 11/27/20 *Time: 14:21 Exam Vital signs and Labs for Last 24 Hours: Temp Pulse Resp BP Pulse Ox 98.1 F 84 20 138/87 97 11/27/20 11:51 11/27/20 11:51 11/27/20 11:51 11/27/20 11:51 11/27/20 11:51 Laboratory Results - last 24 hr 11/26/20 16:08: POC Glucose 367 H* 11/26/20 20:07: POC Glucose 403 H* 11/26/20 20:14: POC Glucose 421 H* 11/27/20 06:24: POC Glucose 327 H* 11/27/20 06:47: WBC 8.4 D, RBC 4.95, Hgb 13.9 L, Hct 41.8 L, MCV 84.3, MCH 28.1, MCHC 33.3, RDW 16.1, Plt Count 211 D, MPV 9.0, Neut % (Auto) 66.6, Lymph % (Auto) 26.1, [place] % (Auto) 5.5, Eos % (Auto) 1.3, Baso % (Auto) 0.5, Neut # (Auto) 5.6, Lymph # (Auto) 2.2, [place] # (Auto) 0.5, Eos # (Auto) 0.1, Baso # (Auto) 0.0 11/27/20 06:47: Sodium 135 L, Potassium 4.1, Chloride 101, Carbon Dioxide 28 D, Anion Gap 10.1, BUN 12, Creatinine 0.60 L, Estimated Creat Clear 202, Estimated GFR 148, Est GFR ( Amer) 180, Glucose 340 H, Calcium 9.1, Total Bilirubin 0.7, AST 18, ALT 17, Alkaline Phosphatase 107, Total Protein 7.4, Albumin 3.9, Globulin 3.5 H, Albumin/Globulin Ratio 1.1 I & O for Last 24 hours: Intake & Output 11/24/20 11/25/20 11/26/20 11/27/20 23:59 23:59 23:59 23:59 Intake Total 540 / 540 1420 / 1420 2180 / 2180 600 / 600 Output Total 1 / 1 0 / 0 Balance 540 / 540 1419 / 1419 2180 / 2180 600 / 600 Weight 91.682 kg 86.183 kg 88 kg 88 kg Microbiology Reports for the Last 24 Hours: Microbiology 11/26/20 07:20 Neck - Abscess Gram Stain - Final 11/26/20 07:20 Neck - Abscess Abscess Culture - Preliminary Gram Positive Cocci Assessment and Plan (1) Cutaneous abscess of neck Status: Acute Category: Medical Code(s): L02.11 - Cutaneous abscess of neck (2) History of pulmonary embolism Status: Acute Category: Medical Code(s): Z86.711 - Personal history of pulmonary embolism (3) Cellulitis Status: Acute Qualifiers: Site of cellulitis: neck Qualified Code(s): L03.221 - Cellulitis of neck Category: Medical Code(s): L03.90 - Cellulitis, unspecified (4) Type 2 diabetes mellitus with hyperglycemia, with long-term current use of insulin Status: Acute Category: Medical Code(s): E11.65 - Type 2 diabetes mellitus with hyperglycemia; Z79.4 - penitentiary (current) use of insulin The patient's infection will respond to the chosen ABx?: Yes (EMPIRIC THERAPY DISCUSSED WITH MD) Is the patient receiving the right drug, dose, and route?: Yes Could a more targeted ABx be ordered?: No (CULTURES PENDING)
--- NOTE | 2020-11-27 16:32 | PC.NURSE ---
Pt has rested majority of this shift. Pt has reported no pain since prior dressing change. Pt continues on RA, VSS. Lung sounds CTA. Bowel sounds active in all 4 quads, pt has not reported a BM thus far this shift. remains at bedside. No other acute changes or complaints. Will continue to monitor.
[2020-11-27 16:43] LABS: POC Glucose,Bedside 274 (70-110)
[2020-11-27 17:18] LABS: POC Glucose,Bedside 428 (70-110)
[2020-11-27 22:32] LABS: POC Glucose,Bedside 338 (70-110)
[2020-11-28] VITALS: BP 139/80; PULSE 82; RESP 16; TEMP 36.6; O2SAT 97
--- NOTE | 2020-11-28 03:48 | PC.NURSE ---
No acute changes noted. Pt has rested well this shift. C/O some discomfort to neck and around jaw. Pt states he started hurting around his jaw after surgery. DSG was secured so pt could take a shower early in the evening. After shower, DSG to neck was changed. Medicated per sep. Pt tolerated well. VSS. Pt remains on RA. Lungs are CTA. BS active. No other concerns. Will continue to monitor.
[2020-11-28 04:00] VITALS: BP 126/71; PULSE 76; RESP 18; TEMP 36.5; O2SAT 98
[2020-11-28 06:06] LABS: POC Glucose,Bedside 328 (70-110)
[2020-11-28 06:49] VITALS: BMI 29.6
--- NOTE | 2020-11-28 07:18 | HMH.GSPN ---
Subjective Patient reports: no new complaints, still having pain Progress Note: A&P (1) Cutaneous abscess of neck Status: Acute Assessment and plan: Overall, doing well status post incision and drainage. Final cultures/sensitivities pending. He will continue antibiotics as per primary service. Dressing changes to continue. (2) History of pulmonary embolism Status: Acute (3) Cellulitis Status: Acute (4) Type 2 diabetes mellitus with hyperglycemia, with long-term current use of insulin Status: Acute Exam Vital signs and Labs for Last 24 Hours: Temp Pulse Resp BP Pulse Ox 97.7 F 76 18 126/71 98 11/28/20 04:00 11/28/20 04:00 11/28/20 04:00 11/28/20 04:00 11/28/20 04:00 Laboratory Results - last 24 hr 11/27/20 06:47: WBC 8.4 D, RBC 4.95, Hgb 13.9 L, Hct 41.8 L, MCV 84.3, MCH 28.1, MCHC 33.3, RDW 16.1, Plt Count 211 D, MPV 9.0, Neut % (Auto) 66.6, Lymph % (Auto) 26.1, [place] % (Auto) 5.5, Eos % (Auto) 1.3, Baso % (Auto) 0.5, Neut # (Auto) 5.6, Lymph # (Auto) 2.2, [place] # (Auto) 0.5, Eos # (Auto) 0.1, Baso # (Auto) 0.0 11/27/20 11:28: POC Glucose 274 H 11/27/20 17:08: POC Glucose 428 H* 11/27/20 21:00: POC Glucose 338 H* 11/28/20 05:50: POC Glucose 328 H* I & O for Last 24 hours: Intake & Output 11/25/20 11/26/20 11/27/20 11/28/20 11:59 11:59 11:59 11:59 Intake Total 1020 / 1020 1300 / 1300 2059 640 / 640 Output Total / 0 / 0 0 / 0 Balance 1020 / 1020 1299 / 1299 2059 640 / 640 Weight 190 lb 194 lb 0.108 oz 194 lb 0.108 oz 200 lb Microbiology Reports for the Last 24 Hours: Microbiology 11/26/20 07:20 Neck - Abscess Gram Stain - Final 11/26/20 07:20 Neck - Abscess Abscess Culture - Preliminary Gram Positive Cocci - Constitutional no acute distress - *Routine Neck Exam Comments: No spreading cellulitis. Induration remains. - *Routine Respiratory Exam Absent: respiratory distress - *Routine Cardiovascular Exam Present: RRR
[2020-11-28 07:47] LABS: Basophils # 0.1 K/mm3 (0-0.2); Basophils % 0.9 % (0.1-2.0); Eosinophils # 0.1 K/mm3 (0.0-0.4); Eosinophils % 1.8 % (0.1-12.0); Hematocrit 41.6 % (42.0-52.0); Hemoglobin 13.7 g/dL (14.1-18.0); Lymphocytes # 2.4 K/mm3 (0.7-4.5); Lymphocytes % 35.6 % (10-50); Mean Corpuscular HGB Conc 32.9 g/dL (31.8-35.4); Mean Corpuscular Hemoglobin 27.8 pg (27.0-31.2); Mean Corpuscular Volume 84.7 fl (80-94); Mean Platelet Volume 8.7 fl (7.4-10.4); Monocytes # 0.4 K/mm3 (0.1-1.0); Monocytes % 5.6 % (1.7-9.3); Neutrophils # 3.9 K/mm3 (1.8-7.8); Neutrophils % 56.1 % (37.0-80.0); Platelet Count 204 K/mm3 (142-424); Red Blood Count 4.92 M/mm3 (4.60-6.20); Red Cell Distribution Width 15.7 % (11.5-17.5); White Blood Count 6.9 K/mm3 (4.8-10.8)
[2020-11-28 07:53] VITALS: BP 133/88; PULSE 79; RESP 16; TEMP 36.4; O2SAT 99
[2020-11-28 07:53] LABS: Blood Urea Nitrogen 13 mg/dl (9-20); Calcium 8.7 mg/dl (8.4-10.2); Carbon Dioxide 27 mmol/L (22.0-30.0); Chloride 101 mmol/L (98-107); Creatinine Clearance Estimated 208 mL/min (50-200); Estimated Glomerular Filt Rate 148 ml/min (>60); GFR (African American) 180 ML/MIN (>60); Glucose 273 mg/dl (74-100); Sodium 135 mmol/L (136-145)
--- NOTE | 2020-11-28 09:02 | HMH.DCSUM ---
General - General Admission date:: 11/24/20 Discharge date: 11/28/20 HPI HPI: 40-year-old white male with history of insulin requiring diabetes, and recently-May 2020-diagnosed splenic vein thrombosis along with subsegmental pulmonary emboli who has been placed on Eliquis since that time, who developed a swelling and redness at the base of his neck approximately 6 days ago. Saw his primary care provider-a nurse practitioner in [place]-who placed him on Bactrim but this has failed to improve his situation. Increasing pain and swelling prompted him to come to the emergency department. Found to have a fairly significant cellulitis/abscess on the nape of the neck extending into the upper back. Because of his diabetes, failed outpatient therapy, etc. he was admitted with vancomycin and clindamycin therapy. Patient reports his last dose of Eliquis was Thursday morning 11/23. He does not recall if he had been worked up for clotting disorder. Does not really recall who is managing his thrombotic therapy. Does follow with endocrinology for his diabetic management. Hospital Course Hospital Course: Patient was admitted, placed on broad-spectrum IV antibiotics. Surgery was consulted, took patient to incision and drainage in the OR the following morning. Appreciate input and procedure. Procedure went well, significant tissue was excised. Please see notes for details. Afterwards dressing changes went well. Culture was done from wound showing gram-positive cocci, final ID pending but patient responded very nicely to incision and drainage and ongoing dressing changes. No fevers, wound improved nicely. Patient felt well this morning, is very comfortable doing dressing changes. Plan will be to discharge home today he will resume his normal Bactrim that was prescribed 1 day before the surgery on we will follow cultures to see if this needs adjusted. Pain medication will be prescribed for predressing changes, we will follow patient our office in [place] on Thursday. Objective Vital signs: Temp Pulse Resp BP Pulse Ox 97.5 F L 79 16 133/88 99 11/28/20 07:53 11/28/20 07:53 11/28/20 07:53 11/28/20 07:53 11/28/20 07:53 no acute distress - *Routine HEENT Exam Head: Present: normocephalic Eye: Present: EOMI, PERRL ENT: Present: mucous membranes moist - *Routine Neck Exam Present: supple Comments: Wound is packed, dressing is clean/dry/intact, no surrounding erythema or fluctuance. Please see nursing picture details. - *Routine Respiratory Exam Present: CTA bilaterally - *Routine Cardiovascular Exam Present: RRR - *Routine Abdominal Exam Present: soft, normoactive bowel sounds. Absent: tenderness - *Routine Extremities Exam Absent: cyanosis, clubbing, edema - *Routine Skin Exam Present: warm. Absent: rash - Detailed Eye Exam Eyelids: Bilateral normal inspection Results Labs on day of discharge: Labs from last 24 hours 11/28/20 11/28/20 11/28/20 07:22 07:22 05:50 WBC 6.9 RBC 4.92 Hgb 13.7 L Hct 41.6 L MCV 84.7 MCH 27.8 MCHC 32.9 RDW 15.7 Plt Count 204 MPV 8.7 Neut % (Auto) 56.1 Lymph % (Auto) 35.6 [place] % (Auto) 5.6 Eos % (Auto) 1.8 Baso % (Auto) 0.9 Neut # (Auto) 3.9 Lymph # (Auto) 2.4 [place] # (Auto) 0.4 Eos # (Auto) 0.1 Baso # (Auto) 0.1 Sodium 135 L Potassium 4.0 Chloride 101 Carbon Dioxide 27 Anion Gap 11.0 BUN 13 Creatinine 0.60 L Estimated Creat Clear 208 Estimated GFR 148 Est GFR ( Amer) 180 Glucose 273 H POC Glucose 328 H* Calcium 8.7 11/27/20 11/27/20 11/27/20 21:00 17:08 11:28 WBC RBC Hgb Hct MCV MCH MCHC RDW Plt Count MPV Neut % (Auto) Lymph % (Auto) [place] % (Auto) Eos % (Auto) Baso % (Auto) Neut # (Auto) Lymph # (Auto) [place] # (Auto) Eos # (Auto) Baso # (Auto)
--- NOTE | 2020-11-28 10:04 | PC.NURSE ---
performed dressing change this AM w/ no difficulty. states she feels confident doing dressing changes at home. Pt tolerated well. Pt was pre-medicated prior to dressing change.
== END 2020-11-28 10:38 | disposition home or self-care (01) | DRG 580 ==
LOC: ER 11:19 → 2ND 11-25 07:14
PROVIDERS: Internal Medicine Adolescent Medicine; Surgery; Admitting Provider Internal Medicine Adolescent Medicine; Emergency Provider Emergency Medicine; PCP Nurse Practitioner; Visit Provider Internal Medicine Adolescent Medicine
PROC: 0J940ZZ Drainage of Right Neck Subcutaneous Tissue and Fascia, Open Approach (ICD-10-PCS; principal; 2020-11-26 07:00)
DX: L72.3 Sebaceous cyst (principal); L03.221 Cellulitis of neck; L02.11 Cutaneous abscess of neck; E11.65 Type 2 diabetes mellitus with hyperglycemia; Z79.4 Long term (current) use of insulin; Z88.0 Allergy status to penicillin; E78.5 Hyperlipidemia, unspecified; Z87.891 Personal history of nicotine dependence; Z86.711 Personal history of pulmonary embolism; Z79.02 Long term (current) use of antithrombotics/antiplatelets; I10 Essential (primary) hypertension; B96.89 Other specified bacterial agents as the cause of diseases classified elsewhere
CPT/HCPCS: 10061; 36415; 70491; 80048; 80053; 82962; 85007; 85025; 87070; 87075; 87077; 87186; 87205; 96365; 96367; 96375; 96376; 99284; J2405; J3370; Q9967; U0003

== ENCOUNTER → 2020-12-05 10:46 | Outpatient (CLI) | payer OTHER, SELFPAY ==
[2020-12-05 15:56] LABS: Basophils # 0.1 K/mm3 (0-0.2); Basophils % 0.7 % (0.1-2.0); Eosinophils # 0.1 K/mm3 (0.0-0.4); Eosinophils % 1.1 % (0.1-12.0); Hematocrit 42.9 % (42.0-52.0); Hemoglobin 14.3 g/dL (14.1-18.0); Lymphocytes # 2.6 K/mm3 (0.7-4.5); Lymphocytes % 28.9 % (10-50); Mean Corpuscular HGB Conc 33.2 g/dL (31.8-35.4); Mean Corpuscular Hemoglobin 27.4 pg (27.0-31.2); Mean Corpuscular Volume 82.5 fl (80-94); Mean Platelet Volume 9.8 fl (7.4-10.4); Monocytes # 0.4 K/mm3 (0.1-1.0); Monocytes % 4.7 % (1.7-9.3); Neutrophils # 5.9 K/mm3 (1.8-7.8); Neutrophils % 64.6 % (37.0-80.0); Platelet Count 221 K/mm3 (142-424); Red Cell Distribution Width 15.3 % (11.5-17.5); White Blood Count 9.1 K/mm3 (4.8-10.8)
[2020-12-05 15:57] LABS: Chloride 98 mmol/L (98-107); Sodium 130 mmol/L (136-145)
[2020-12-05 15:58] LABS: Potassium 4.4 mmoL/L (3.5-5.1)
[2020-12-05 16:00] LABS: Alanine Aminotransferase 29 U/L (12-78); Albumin/Globulin Ratio 1.2 (1.1-1.8); Alkaline Phosphatase 122 U/L (38-126); Anion Gap 14.4 mEq/L (5-15); Aspartate Amino Transferase 25 U/L (17-59); Bilirubin,Total 0.8 mg/dl (0.2-1.3); Blood Urea Nitrogen 17 mg/dl (9-20); Calcium 8.8 mg/dl (8.4-10.2); Carbon Dioxide 22 mmol/L (22.0-30.0); Cholesterol 207 mg/dl (140-200); Estimated Glomerular Filt Rate 124 ml/min (>60); GFR (African American) 150 ML/MIN (>60); Globulin 3.3 g/dL (1.3-3.2); Total Protein,Serum 7.3 g/dl (6.3-8.2)
[2020-12-05 16:01] LABS: Chol/HDL Ratio 6.9 (1-3.5); HDL Cholesterol 30 mg/dl (40-60)
[2020-12-05 16:06] LABS: Glucose 406 mg/dl (74-100)
[2020-12-05 16:18] LABS: Triglycerides 1545 mg/dl (30-150)
[2020-12-05 17:01] LABS: Direct LDL Cholesterol < 30.00 mg/dL (100-129)
[2020-12-05 17:10] LABS: Hemoglobin A1C 13.6 % (4.0-6.0)
== END ==
PROVIDERS: Visit Provider Internal Medicine Adolescent Medicine
DX: E11.65 Type 2 diabetes mellitus with hyperglycemia (principal); E78.1 Pure hyperglyceridemia; Z79.4 Long term (current) use of insulin
CPT/HCPCS: 36415; 80053; 80061; 83036; 85025

== ENCOUNTER 2021-01-25 19:52 | Emergency (ER) | payer OTHER, SELFPAY ==
[2021-01-25 20:01] VITALS: BP 141/82; PULSE 92; RESP 18; O2SAT 99; BMI 29.7
[2021-01-25 20:10] VITALS: BP 141/82; PULSE 92; RESP 18; TEMP 36.8; O2SAT 99; BMI 29.8
--- NOTE | 2021-01-25 20:30 | PC.NURSE ---
PATIENT SENT TO ER PER Colten SCHULZ APRN FOR FURTHER EVALUATION. REPORT GIVEN TO Abel HADLEY RN
[2021-01-25 20:38] VITALS: BP 118/72; PULSE 83; RESP 16; TEMP 36.8; O2SAT 98; BMI 29.0
--- NOTE | 2021-01-25 21:02 | PC.NURSE ---
call placed to night watch [phone], spoke with gilberto. vanc dose received
--- NOTE | 2021-01-25 21:03 | HMH.EDSKAF ---
ED Disposition Clinical Impression: Type 2 diabetes mellitus with hyperglycemia, with long-term current use of insulin Abscess of skin or subcutaneous tissue Qualifiers: Site of cutaneous abscess: trunk Site of cutaneous abscess of trunk: groin Qualified Code(s): L02.214 - Cutaneous abscess of groin Disposition: Home, Self-Care Condition on Discharge: Good Instructions: DI for Skin Abscess Additional Instructions: warm compresses and use abx as directed and call pcp about cultures and diabetes Prescriptions: Sulfamethoxazole/Trimethoprim [Bactrim DS tablet] 1 each PO BID #20 tab Transmission Status: Pending to [id number] clindamycin HCL [Clindamycin HCl] 300 mg PO TID #30 cap Transmission Status: Pending to [id number] Referrals: Molly Yeager APRN [Primary Care Provider] - - Critical Care Critical Care Time: No Attestation: On 01/25/21, the high probability of a clinically significant, sudden or life threatening deterioration of the following system(s) required my full and direct attention, intervention and personal management. The time I documented below is in addition to time spent performing reported procedures but includes the following listed in this critical care notation. Medical Decision Making - Medical Records Medical records reviewed: Yes: I reviewed the patient's medical records. - [place] Inquiry Pt receiving controlled substance: No Vital Signs: 01/25/21 20:01 01/25/21 20:10 01/25/21 20:38 Temperature 98.2 F 98.2 F Temperature Source Oral Oral Pulse Rate [Right Brachial] 92 H 92 H 83 Respiratory Rate 18 18 16 Blood Pressure [Right Arm] 141/82 H 141/82 H 118/72 Blood Pressure Mean [Right Arm] 101 101 87 Blood Pressure Source [Right Arm] Automatic Cuff Automatic Cuff Automatic Cuff Blood Pressure Position [Right Arm] Sitting Sitting Sitting 02 Sat by Pulse Oximetry 99 99 98 Oxygen Delivery Method Room Air Room Air Room Air - Lab Data Lab results reviewed: Yes: I reviewed the patient's lab results. Lab Results 01/25/21 20:50: WBC 8.3, RBC 5.16, Hgb 14.9, Hct 43.8, MCV 84.9, MCH 28.9, MCHC 34.0, RDW 13.7, Plt Count 196, MPV 8.2, Neut % (Auto) 70.5, Lymph % (Auto) 23.3, [place] % (Auto) 4.6, Eos % (Auto) 1.0, Baso % (Auto) 0.6, Neut # (Auto) 5.9, Lymph # (Auto) 1.9, [place] # (Auto) 0.4, Eos # (Auto) 0.1, Baso # (Auto) 0.1, ESR 11 01/25/21 20:50: Sodium 130 L, Potassium 4.1, Chloride 94 L, Carbon Dioxide 26, Anion Gap 14.1, BUN 18, Creatinine 0.70, Estimated Creat Clear 170, Estimated GFR 124, Est GFR ( Amer) 150, Glucose 577 H*, Calcium 8.8, Total Bilirubin 0.7, AST 26, ALT 25, Alkaline Phosphatase 119, C-Reactive Protein 23.1 H, Total Protein 7.8, Albumin 4.4, Globulin 3.4 H, Albumin/Globulin Ratio 1.3 01/25/21 20:50: Lactate 0.9 Result diagrams: 01/25/21 20:50 01/25/21 20:50 Orders (Tests/Meds): ED MEDICATIONS Generic Name Dose Route Start Last Admin Trade Name Freq PRN Reason Stop Dose Admin Vancomycin HCl 1,500 mg/ 250 mls @ 125 mls/hr 01/25/21 21:04 01/25/21 21:26 Sodium Chloride IV 01/25/21 23:03 125 mls/hr ONCE ONE Administration Protocol Sodium Chloride 1,000 mls @ 999 mls/hr 01/25/21 21:15 01/25/21 21:17 Sod Chlor 0.9% 1000ml Bag IV 01/25/21 22:15 999 mls/hr .Q1H1M PROSPER Administration Miscellaneous 1 each 01/25/21 21:15 Vancomycin Consult Request * 02/24/21 21:14 CONSULT PHARMACY PROSPER Discontinued Medications Generic Name Dose Route Start Last Admin Trade Name Freq PRN Reason Stop Dose Admin Insulin Human Regular 5 unit 01/25/21 21:41 01/25/21 21:55 Insulin Human Regular 100 Units/Ml 10ml Vial IVP 01/25/21 21:42 5 unit ONCE ONE Administration Ketorolac Tromethamine 30 mg 01/25/21 21:15 01/25/21 21:17 Ketorolac 30mg/Ml Vial IV 01/25/21 21:16 30 mg ONCE ONE Administration ORDERS Category Date Time Status Blood Culture Stat Micro 01/25/21 20:50 Received Wound Cultur
[2021-01-25 21:10] LABS: Basophils # 0.1 K/mm3 (0-0.2); Basophils % 0.6 % (0.1-2.0); Eosinophils # 0.1 K/mm3 (0.0-0.4); Hematocrit 43.8 % (42.0-52.0); Hemoglobin 14.9 g/dL (14.1-18.0); Lymphocytes # 1.9 K/mm3 (0.7-4.5); Lymphocytes % 23.3 % (10-50); Mean Corpuscular Hemoglobin 28.9 pg (27.0-31.2); Mean Corpuscular Volume 84.9 fl (80-94); Mean Platelet Volume 8.2 fl (7.4-10.4); Monocytes # 0.4 K/mm3 (0.1-1.0); Monocytes % 4.6 % (1.7-9.3); Neutrophils # 5.9 K/mm3 (1.8-7.8); Neutrophils % 70.5 % (37.0-80.0); Platelet Count 196 K/mm3 (142-424); Red Blood Count 5.16 M/mm3 (4.60-6.20); Red Cell Distribution Width 13.7 % (11.5-17.5); White Blood Count 8.3 K/mm3 (4.8-10.8)
[2021-01-25 21:14] LABS: Alanine Aminotransferase 25 U/L (12-78); Albumin Level 4.4 g/dl (3.5-5.0); Albumin/Globulin Ratio 1.3 (1.1-1.8); Alkaline Phosphatase 119 U/L (38-126); Anion Gap 14.1 mEq/L (5-15); Aspartate Amino Transferase 26 U/L (17-59); Bilirubin,Total 0.7 mg/dl (0.2-1.3); Blood Urea Nitrogen 18 mg/dl (9-20); Calcium 8.8 mg/dl (8.4-10.2); Carbon Dioxide 26 mmol/L (22.0-30.0); Chloride 94 mmol/L (98-107); Creatinine Clearance Estimated 170 mL/min (50-200); Estimated Glomerular Filt Rate 124 ml/min (>60); GFR (African American) 150 ML/MIN (>60); Globulin 3.4 g/dL (1.3-3.2); Lactic Acid 0.9 mmol/L (0.7-2.1); Potassium 4.1 mmoL/L (3.5-5.1); Sodium 130 mmol/L (136-145); Total Protein,Serum 7.8 g/dl (6.3-8.2)
[2021-01-25 21:19] LABS: C-Reactive Protein 23.1 mg/L (0-4); Glucose 577 mg/dl (74-100)
[2021-01-25 21:33] LABS: Erythrocyte Sedimentation Rate 11 mm/hr (0-15)
[2021-01-25 23:38] VITALS: BP 107/53; PULSE 82; RESP 18; TEMP 36.9; O2SAT 99
== END 2021-01-25 23:41 | disposition home or self-care (01) ==
LOC: UTC 20:01 → ER 20:37
PROVIDERS: Emergency Provider Emergency Medicine; PCP Nurse Practitioner
DX: L02.214 Cutaneous abscess of groin (principal); E11.9 Type 2 diabetes mellitus without complications; Z79.84 Long term (current) use of oral hypoglycemic drugs; I10 Essential (primary) hypertension; E78.5 Hyperlipidemia, unspecified; Z86.14 Personal history of Methicillin resistant Staphylococcus aureus infection; Z79.899 Other long term (current) drug therapy
CPT/HCPCS: 80053; 83605; 85025; 85651; 86140; 87040; 87070; 87077; 87186; 87205; 96365; 96367; 96375; 99283; J3370

== ENCOUNTER 2021-09-28 12:00 | Emergency (ER) | payer OTHER, SELFPAY ==
--- NOTE | 2021-09-28 12:14 | XR_ITS ---
PROCEDURE INFORMATION: Exam: XR Left Ribs with PA Chest Exam date and time: 09/28/2021 12:12 PM Age: 41 years old Clinical indication: Injury or trauma; Fall; Rib area, left side; Blunt trauma; Injury date: 09/25/21; Additional info: Fall trying to get up on the roof -- left rib pain- upper ribs TECHNIQUE: Imaging protocol: XR Left ribs with PA chest. Views: 3 views COMPARISON: CR CXR2V XR chest 2V 05/16/2018 4:14 PM FINDINGS: Lungs: Mild interstitial prominence without acute airspace disease. Pleural spaces: No pneumothorax or pleural effusion. Heart/Mediastinum: Normal configuration of the heart. Bones/joints: Contour irregularity involving the left 3rd rib on a single view, suspicious for nondisplaced fracture. CT can be performed for definitive evaluation, if clinically indicated. Degenerative change. IMPRESSION: Contour irregularity involving the left 3rd rib on a single view, suspicious for nondisplaced fracture. CT can be performed for definitive evaluation, if clinically indicated.
[2021-09-28 12:20] VITALS: BP 141/84; PULSE 91; RESP 19; TEMP 37; O2SAT 98; BMI 31.6
[2021-09-28 12:46] VITALS: BP 141/84; PULSE 91; RESP 19; TEMP 37; O2SAT 98
--- NOTE | 2021-09-28 12:58 | HMH.EDUTC ---
[facility] [place] Disposition Clinical Impression: Rib fracture Qualifiers: Encounter type: initial encounter Rib fracture type: single rib Fracture type: closed Laterality: left Qualified Code(s): S22.32XA - Fracture of one rib, left side, initial encounter for closed fracture Disposition: Home, Self-Care Condition on Discharge: Good Instructions: Rib Fracture, DI for Rib Fracture Additional Instructions: Over the counter lidocaine patches may help with pain and discomfort Over the counter Motrin if you can take it if not take Tylenol for pain Ice to area may help with discomfort Follow up with Family Doctor if needed Straight to ER if any life threatening symptoms Referrals: Molly Yeager APRN [Primary Care Provider] - As needed Forms: Work/School Release Time of Disposition: 13:06 Medical Decision Making - [place] Inquiry Pt receiving controlled substance: No [place] was queried for this patient: No Vital Signs: 09/28/21 12:20 09/28/21 12:46 Temperature 98.6 F 98.6 F Temperature Source Oral Pulse Rate 91 H Pulse Rate [Left Brachial] 91 H Respiratory Rate 19 19 Blood Pressure 141/84 H Blood Pressure [Left Arm] 141/84 H Blood Pressure Mean [Left Arm] 103 Blood Pressure Source [Left Arm] Automatic Cuff Blood Pressure Position [Left Arm] Sitting 02 Sat by Pulse Oximetry 98 Oxygen Delivery Method Room Air - Radiology Data #1 Image(s): Chest (with left ribs) Image Reviewed: Yes I have reviewed radiologist's interpretation IMPRESSION: Contour irregularity involving the left 3rd rib on a single view, suspicious for nondisplaced fracture. CT can be performed for definitive evaluation, if clinically indicated. [facility] [place] HPI - General Stated complaint: ao fall 09/23, left side rib pain Time Seen by Provider: 09/28/21 12:58 Mode of Arrival: Ambulatory Source of Information: Patient, Spouse Limitations: No Limitations Description of Symptoms (Recalled from Triage Doc. by RN): PATIENT REPORTS HE HIT HIS LEFT SIDE/RIBS ON ROOF THURSDAY AND IS WORRIED HIS RIBS MAY BE FRACTURED HEENT Symptoms (Recalled from RN notes): No Resp Symptoms (Recalled from RN notes): No Skin Symptoms (Recalled from RN notes): No MS Symptoms (Recalled from RN notes): Yes Functional Status (Recalled from RN notes): WNL - History of Present Illness Provider Complaint: Patient states that he was getting on the roof on Thursday when he slipped and hit his left ribs on the side of the roof States ever since he has been having pain in his left ribs and hurts when he takes deep breath or moves certain ways States that today he was still having pain so he came in - Related Data Home Medications Medication Instructions Recorded Confirmed Insulin Aspart [Novolog] 15 units SQ TID 04/06/20 09/28/21 Metformin HCl [Metformin HCl ER] 1,000 mg PO BID 04/06/20 09/28/21 Apixaban [Eliquis] 5 mg PO DAILY 11/24/20 01/25/21 Icosapent Ethyl [Vascepa] 2 gm PO BID 11/24/20 01/25/21 Previous Rx's Medication Instructions Recorded Sulfamethoxazole/Trimethoprim 1 each PO BID #20 tab 01/25/21 [Bactrim DS tablet] clindamycin HCL [Clindamycin HCl] 300 mg PO TID #30 cap 01/25/21 Allergies Allergy/AdvReac Type Severity Reaction Status Date / Time Penicillins [PENICILLINS] Allergy Unknown Verified 12/19/20 13:36 - Worker's Comp Is this a Worker's Comp case?: No [facility] History - Hepatitis A Screen Drug use history?: No High risk sexual behaviors?: No History of sexually transmitted infection?: No Currently employed?: No Childcare worker?: No Do you have indoor plumbing?: Yes Do you have electricity?: Yes Attestation statement:: This patient has been screened for Hepatitis A risk factors. I have reviewed the patient's past medical history: Yes Medical History: Reports:: Diabetes Mellitus Type 2, Hyperlipidemia, Hypertension Denies:: Asthma, Cancer, Chronic Obstructive Pulmonary Disease (COPD), Diabetes Mellitus Type 1, MRSA Othe
== END 2021-09-28 13:12 | disposition home or self-care (01) ==
PROVIDERS: Emergency Provider Nurse Practitioner; PCP Nurse Practitioner
DX: S22.32XA Fracture of one rib, left side, initial encounter for closed fracture (principal); W18.30XA Fall on same level, unspecified, initial encounter; Y92.019 Unspecified place in single-family (private) house as the place of occurrence of the external cause; E11.9 Type 2 diabetes mellitus without complications; I10 Essential (primary) hypertension; E78.5 Hyperlipidemia, unspecified
CPT/HCPCS: 71101; 99212; G0463

== ENCOUNTER 2022-04-20 14:25 | Emergency (ER) | payer OTHER, SELFPAY ==
[2022-04-20 14:25] VITALS: BP 146/87; PULSE 93; RESP 21; TEMP 36.9; O2SAT 93; BMI 32.6
--- NOTE | 2022-04-20 14:25 | ECG_ITS ---
APPROVED REPORT Exam: Resting ECG HR:89 bpm ECG Measurements Heart Rate 89 AXES NM 154 P 52 QRSd 98 QRS 73 QT 348 T 43 QTc 394 Conclusion SINUS RHYTHM NORMAL ECG UNCONFIRMED REPORT Electronically signed by : Vargas Gsaton MD 04/21/2022 18:01:09
--- NOTE | 2022-04-20 14:38 | XR_ITS ---
PROCEDURE INFORMATION: Exam: XR Chest Exam date and time: 04/20/2022 3:07 PM Age: 41 years old Clinical indication: Other: Chest pain TECHNIQUE: Imaging protocol: Radiologic exam of the chest. Views: 1 view. COMPARISON: CR XR RIBS LT MIN 3V W CXR1V 09/28/2021 12:12 PM FINDINGS: Lungs: Unremarkable. No consolidation. Pleural spaces: Unremarkable. No pleural effusion. No pneumothorax. Heart/Mediastinum: Unremarkable. No cardiomegaly. Bones/joints: Unremarkable. . Stable ossific fragments adjacent to the right clavicle IMPRESSION: No acute findings.
[2022-04-20 15:01] VITALS: BP 127/72; PULSE 91; RESP 24; O2SAT 97
[2022-04-20 15:06] LABS: Basophils # 0.2 K/mm3 (0-0.2); Basophils % 0.8 % (0.1-2.0); Eosinophils # 0.2 K/mm3 (0.0-0.4); Eosinophils % 0.8 % (0.1-12.0); Hematocrit 41.1 % (42.0-52.0); Lymphocytes # 2.7 K/mm3 (0.7-4.5); Lymphocytes % 11.7 % (10-50); Mean Corpuscular Volume 86.8 fl (80-94); Mean Platelet Volume 9.1 fl (7.4-10.4); Monocytes # 0.9 K/mm3 (0.1-1.0); Monocytes % 3.8 % (1.7-9.3); Neutrophils # 19.5 K/mm3 (1.8-7.8); Neutrophils % 82.9 % (37.0-80.0); Platelet Count 383 K/mm3 (142-424); Red Blood Count 4.74 M/mm3 (4.60-6.20); White Blood Count 23.5 K/mm3 (4.8-10.8)
--- NOTE | 2022-04-20 15:06 | PC.NURSE ---
lab called stating pt blood draw is extremely lipemic, they will attempt to spin out, if not able they will call back
[2022-04-20 15:12] LABS: Alanine Aminotransferase 56 U/L (12-78); Albumin Level 3.8 g/dl (3.5-5.0); Alkaline Phosphatase 219 U/L (38-126); Aspartate Amino Transferase 33 U/L (17-59); Bilirubin,Total 1.2 mg/dl (0.2-1.3); Blood Urea Nitrogen 11 mg/dl (9-20); Calcium 8.4 mg/dl (8.4-10.2); Chloride 97 mmol/L (98-107); Estimated Glomerular Filt Rate 148 ml/min (>60); GFR (African American) 179 ML/MIN (>60); Glucose 289 mg/dl (74-100); Lipase 66 U/L (23-300); Sodium 131 mmol/L (136-145); Total Protein,Serum 7.8 g/dl (6.3-8.2)
[2022-04-20 15:19] LABS: Creatinine Clearance Estimated 221 mL/min (50-200)
[2022-04-20 15:29] LABS: Mean Corpuscular Hemoglobin 29.3 pg (27.0-31.2)
[2022-04-20 15:30] VITALS: BP 131/71; PULSE 96; RESP 24; O2SAT 96
[2022-04-20 15:35] LABS: Hemoglobin 13.9 g/dL (14.1-18.0)
[2022-04-20 15:39] LABS: MANUAL DIFFERENTIAL MANUAL DIFFERENTIAL (MANUAL DIFF)
[2022-04-20 15:40] LABS: Carbon Dioxide 10 mmol/L (22.0-30.0)
[2022-04-20 15:42] LABS: Troponin I < 0.01 ng/ml (0.00-0.034)
[2022-04-20 16:00] VITALS: BP 133/81; PULSE 98; RESP 22; O2SAT 96
--- NOTE | 2022-04-20 16:05 | HMH.EDABDPAI ---
Discharge Plan Disposition Patient Disposition: Home, Self-Care Condition: Good Prescriptions Prescriptions: New omeprazole 20 mg capsule,delayed release(DR/EC) 20 mg PO DAILY 28 Days Qty: 28 0RF No Action metformin 500 MG tablet extended release 24 hr 1,000 mg PO BID insulin aspart U-100 100 unit/mL solution 15 units SQ TID Rx Instructions: 15 UNITS EVERY MEAL icosapent ethyl 1 GM capsule 2 gm PO BID Label Comments: TAKE 1 CAPSULE BY MOUTH ONCE DAILY apixaban 5 MG tablet 5 mg PO DAILY sulfamethoxazole-trimethoprim 1 EACH tablet 1 each PO BID Qty: 20 0RF clindamycin HCl 300 MG capsule 300 mg PO TID Qty: 30 0RF Referrals Follow up/Referrals: Molly Yeager APRN [Primary Care Provider] - See instructions Activity Restrictions/Add. Instructions Additional Instructions/Restrictions: Please follow-up with your primary care physician within the next 2 to 3 days. Please also discuss with your primary care team regarding your high triglyceridemia. You have also been prescribed omeprazole please take as prescribed for your GERD. Please also utilize the GI cocktail provided to you at discharge as prescribed. May also use mylanta, maalox and other over the counter medications. Also practice safe hygiene including eating 3 hours prior to laying down. Avoiding large fatty meals and any other triggers that worsen your symptoms. Please return if symptoms worsen or reoccur. Clinical Impressions Clinical Impression: Peptic reflux disease, High triglycerides Instructions Patient Instructions: High Triglycerides, DI for Peptic Ulcer Print Language Print Language: Lao Discharge ED Provider: Radha Liz Abdominal Pain HPI General Chief Complaint: Abdominal Pain Stated Complaint: chest pain Time Seen by Provider: 04/20/22 15:45 Mode of Arrival: Ambulatory Source of Information: Patient Limitations: No Limitations Description of Symptoms (Recalled from ER Triage Doc. by RN): Pt c/o pain in center of chest that extends to rt side epigastric area associated with N/V since . Pt reports hx of pancreatitis History of Present Illness HPI narrative: Mr. Orellana is a 41-year-old male with past medical history for hypertriglyceridemia and pancreatitis presenting to the emergency department with right-sided epigastric pain with associated nausea and vomiting. Patient reports symptom onset . Patient describes non-bloody non-bilious emesis. Reports symptoms feel similar to his prior episode of pancreatitis. Denies any bowel changes or urinary symptoms. No chest pain or dyspnea. No fevers, chills or other infectious-like symptoms. MD complaint: abdominal pain (Epigastric pain) Onset (ago): hour(s) Consistency: intermittent Location: epigastric Severity: moderate Severity scale (1-10): 7 Quality: burning Radiation: none Migration to: no migration Relieving factors: nothing Exacerbating factors: eating Related Data Home Medications Medication Instructions Recorded Confirmed insulin aspart U-100 100 unit/mL 15 units SQ TID Diabetes 04/06/20 09/28/21 subcutaneous solution metformin 500 mg tablet,extended 1,000 mg PO BID Diabetes 04/06/20 09/28/21 release 24 hr apixaban 5 mg tablet 5 mg PO DAILY Blood thinner 11/24/20 01/25/21 icosapent ethyl 1 gram capsule 2 gm PO BID Cholesterol 11/24/20 01/25/21 Previous Rx's Medication Instructions Recorded clindamycin HCl 300 mg capsule 300 mg PO TID #30 caps 01/25/21 sulfamethoxazole 800 1 each PO BID #20 tabs 01/25/21 mg-trimethoprim 160 mg tablet omeprazole 20 mg capsule,delayed 20 mg PO DAILY 28 days #28 caps 04/20/22 release Allergies Allergy/AdvReac Type Severity Reaction Status Date / Time Penicillins [PENICILLINS] Allergy Unknown Verified 12/19/20 13:36 Iodinated Contrast Media Allergy Verified 04/20/22 15:50 [facility] Social History (Reviewed 04/20/22 @ 17:01 by Radha Liz
[2022-04-20 16:08] LABS: Lymphocytes % 15 % (10-50); Monocytes % 4 % (2-9); Neutrophils % 81 % (42-76); Total Cells Counted 100
[2022-04-20 16:10] LABS: Ovalocytes 1+; Platelet Estimate Normal; Tear Drop Cells 1+
--- NOTE | 2022-04-20 16:19 | HMH.EDABDPAI ---
Discharge Plan Disposition Patient Disposition: Home, Self-Care Condition: Good Prescriptions Prescriptions: New omeprazole 20 mg capsule,delayed release(DR/EC) 20 mg PO DAILY 28 Days Qty: 28 0RF No Action metformin 500 MG tablet extended release 24 hr 1,000 mg PO BID insulin aspart U-100 100 unit/mL solution 15 units SQ TID Rx Instructions: 15 UNITS EVERY MEAL icosapent ethyl 1 GM capsule 2 gm PO BID Label Comments: TAKE 1 CAPSULE BY MOUTH ONCE DAILY apixaban 5 MG tablet 5 mg PO DAILY sulfamethoxazole-trimethoprim 1 EACH tablet 1 each PO BID Qty: 20 0RF clindamycin HCl 300 MG capsule 300 mg PO TID Qty: 30 0RF Referrals Follow up/Referrals: Molly Yeager APRN [Primary Care Provider] - See instructions Activity Restrictions/Add. Instructions Additional Instructions/Restrictions: Please follow-up with your primary care physician within the next 2 to 3 days. Please also discuss with your primary care team regarding your high triglyceridemia. You have also been prescribed omeprazole please take as prescribed for your GERD. Please also utilize the GI cocktail provided to you at discharge as prescribed. May also use mylanta, maalox and other over the counter medications. Also practice safe hygiene including eating 3 hours prior to laying down. Avoiding large fatty meals and any other triggers that worsen your symptoms. Please return if symptoms worsen or reoccur. Clinical Impressions Clinical Impression: Peptic reflux disease, High triglycerides Instructions Patient Instructions: High Triglycerides, DI for Peptic Ulcer Print Language Print Language: Malay Discharge ED Provider: Radha Liz Abdominal Pain HPI General Chief Complaint: Abdominal Pain Stated Complaint: chest pain Time Seen by Provider: 04/20/22 15:45 Mode of Arrival: Ambulatory Source of Information: Patient Limitations: No Limitations Description of Symptoms (Recalled from ER Triage Doc. by RN): Pt c/o pain in center of chest that extends to rt side epigastric area associated with N/V since . Pt reports hx of pancreatitis History of Present Illness HPI narrative: Mr. Orellana is a 41-year-old male with past medical history for hypertriglyceridemia, T2DM insulin-dependent, PE, GERD presenting to the emergency department for constant moderate, epigastric abdominal pain since . Patient reports symptoms radiate into the lower abdomen. Patient also reports 4 episodes of non-bloody non-bilious emesis. Patient also reports constipation at baseline last bowel movement yesterday. Denies any bloody stools. No fevers, chills or other infectious-like symptoms. Denies any recent trauma to the abdomen. Sypmtom exacerbated by food intake and laying flat. MD complaint: abdominal pain Onset (ago): day(s) Consistency: constant Location: epigastric Severity: moderate Severity scale (1-10): 8 Quality: aching Radiation: epigastric Relieving factors: nothing Exacerbating factors: eating and other (laying down) Associated symptoms: vomiting and constipation Related Data Home Medications Medication Instructions Recorded Confirmed insulin aspart U-100 100 unit/mL 15 units SQ TID Diabetes 04/06/20 09/28/21 subcutaneous solution metformin 500 mg tablet,extended 1,000 mg PO BID Diabetes 04/06/20 09/28/21 release 24 hr apixaban 5 mg tablet 5 mg PO DAILY Blood thinner 11/24/20 01/25/21 icosapent ethyl 1 gram capsule 2 gm PO BID Cholesterol 11/24/20 01/25/21 Previous Rx's Medication Instructions Recorded clindamycin HCl 300 mg capsule 300 mg PO TID #30 caps 01/25/21 sulfamethoxazole 800 1 each PO BID #20 tabs 01/25/21 mg-trimethoprim 160 mg tablet omeprazole 20 mg capsule,delayed 20 mg PO DAILY 28 days #28 caps 04/20/22 release Allergies Allergy/AdvReac Type Severity Reaction Status Date / Time Penicillins [PENICILLINS] Allergy Unknown Verified 12/19/20 13:36 Iodinated
[2022-04-20 16:23] VITALS: BP 133/81; PULSE 98; RESP 20; TEMP 36.8; O2SAT 99
== END 2022-04-20 16:25 | disposition home or self-care (01) ==
PROVIDERS: Emergency Provider Student in an Organized Health Care Education/Training Program; PCP Nurse Practitioner
DX: K21.9 Gastro-esophageal reflux disease without esophagitis (principal); E78.1 Pure hyperglyceridemia; Z91.041 Radiographic dye allergy status
CPT/HCPCS: 71045; 80053; 83690; 84484; 85007; 85025; 93005; 99283

== ENCOUNTER 2022-09-29 13:49 | Emergency (ER) | payer OTHER, SELFPAY ==
[2022-09-29 13:51] VITALS: BP 174/92; PULSE 110; RESP 17; TEMP 36.8; O2SAT 98; BMI 33.4
--- NOTE | 2022-09-29 14:32 | HMH.EDGENADL ---
Discharge Plan Disposition Patient Disposition: Home, Self-Care Condition: Good Prescriptions Prescriptions: New sulfamethoxazole-trimethoprim [Bactrim DS] 800-160 mg tablet 1 tab PO BID 7 Days Qty: 14 0RF No Action metformin 500 MG tablet extended release 24 hr 1,000 mg PO BID insulin aspart U-100 100 unit/mL solution 15 units SQ TID Rx Instructions: 15 UNITS EVERY MEAL omeprazole 20 mg capsule,delayed release(DR/EC) 20 mg PO DAILY 28 Days Qty: 28 0RF icosapent ethyl 1 GM capsule 2 gm PO BID Label Comments: TAKE 1 CAPSULE BY MOUTH ONCE DAILY apixaban 5 MG tablet 5 mg PO DAILY sulfamethoxazole-trimethoprim 1 EACH tablet 1 each PO BID Qty: 20 0RF clindamycin HCl 300 MG capsule 300 mg PO TID Qty: 30 0RF Referrals Follow up/Referrals: Molly Yeager APRN [Primary Care Provider] - See instructions Clinical Impressions Clinical Impression: Abscess of skin or subcutaneous tissue Instructions Patient Instructions: DI for Skin Abscess Discharge ED Provider: Kehinde Thorpe General Adult HPI General Chief complaint: Skin/Abscess/Foreign Body Stated complaint: infection boil on center of lower back Time Seen by Provider: 09/29/22 13:50 Mode of Arrival: Ambulatory Source of Information: Patient Limitations: No Limitations Description of Symptoms (Recalled from ER Triage Doc. by RN): pt to ED with an abcess at his tail bone that is hard, red and inflammed and draining pus at this time. History of Present Illness HPI narrative: 42yo M presents to the ER secondary to an abscess on his left buttock. Patient in no distress. Reports is been present for 1 week. Has had multiple lesions like this in the past. No fever. Complains of pain with trying to sit down. no care sought prior to today Related Data Home Medications Medication Instructions Recorded Confirmed insulin aspart U-100 100 unit/mL 15 units SQ TID Diabetes 04/06/20 09/28/21 subcutaneous solution metformin 500 mg tablet,extended 1,000 mg PO BID Diabetes 04/06/20 09/28/21 release 24 hr apixaban 5 mg tablet 5 mg PO DAILY Blood thinner 11/24/20 01/25/21 icosapent ethyl 1 gram capsule 2 gm PO BID Cholesterol 11/24/20 01/25/21 Previous Rx's Medication Instructions Recorded clindamycin HCl 300 mg capsule 300 mg PO TID #30 caps 01/25/21 sulfamethoxazole 800 1 each PO BID #20 tabs 01/25/21 mg-trimethoprim 160 mg tablet omeprazole 20 mg capsule,delayed 20 mg PO DAILY 28 days #28 caps 04/20/22 release sulfamethoxazole 800 1 tab PO BID 7 days #14 tabs 09/29/22 mg-trimethoprim 160 mg tablet (Bactrim DS) Allergies Allergy/AdvReac Type Severity Reaction Status Date / Time Penicillins [PENICILLINS] Allergy Unknown Verified 12/19/20 13:36 Iodinated Contrast Media Allergy Verified 04/20/22 15:50 [facility] Disclaimer: The information contained in this section may have been updated after the patient was seen, as this information can be updated by other users. Social History Smoking Status: Never smoker alcohol intake: never substance use type: denies use current occupational status: other Travel in the last 8 weeks: None household members: significant other housing: house caffeine: Yes ROS Obtained: Yes Systems reviewed as appropriate & no additional complaints except as documented Physical Exam General General appearance: alert Head Head exam: atraumatic Respiratory Respiratory exam: Absent respiratory distress Cardiovascular Cardiovascular exam: Present regular rate Expanded Exam Comment: Firm abscess over gluteal cleft, left and right. Small pustular head to the left. Surrounding erythema Extremities Exam Extremities exam: Present normal inspection Back Exam Back 1 view image: 1. Abscess Neurological Exam Neurological exam: Present alert and oriented X3 Skin Skin exam: Present
[2022-09-29 14:46] VITALS: BP 140/80; PULSE 68; RESP 16; TEMP 36.7; O2SAT 99
== END 2022-09-29 14:48 | disposition home or self-care (01) ==
PROVIDERS: Emergency Provider Family Medicine; PCP Nurse Practitioner
DX: L02.212 Cutaneous abscess of back [any part, except buttock and flank] (principal)
CPT/HCPCS: 99282; 99284

== ENCOUNTER 2022-10-04 13:30 | Emergency (ER) | payer OTHER, SELFPAY ==
[2022-10-04 13:50] VITALS: BP 131/79; PULSE 95; RESP 14; TEMP 36.8; O2SAT 98; BMI 33.4
--- NOTE | 2022-10-04 13:58 | PC.NURSE ---
CHEYENNE JUAREZ at
--- NOTE | 2022-10-04 14:11 | PC.NURSE ---
local anesthesia and Incision and drainage of cyst at bedside by ED physician, with wound packing with 1/4 iodinated guaze
--- NOTE | 2022-10-04 14:13 | HMH.EDGENADL ---
Discharge Plan Disposition Patient Disposition: Home, Self-Care Condition: Fair Prescriptions Prescriptions: New clindamycin HCl 300 mg capsule 300 mg PO Q8H 7 Days Qty: 21 0RF No Action metformin 500 MG tablet extended release 24 hr 1,000 mg PO BID insulin aspart U-100 100 unit/mL solution 15 units SQ TID Rx Instructions: 15 UNITS EVERY MEAL omeprazole 20 mg capsule,delayed release(DR/EC) 20 mg PO DAILY 28 Days Qty: 28 0RF icosapent ethyl 1 GM capsule 2 gm PO BID Label Comments: TAKE 1 CAPSULE BY MOUTH ONCE DAILY apixaban 5 MG tablet 5 mg PO DAILY sulfamethoxazole-trimethoprim 1 EACH tablet 1 each PO BID Qty: 20 0RF clindamycin HCl 300 MG capsule 300 mg PO TID Qty: 30 0RF sulfamethoxazole-trimethoprim [Bactrim DS] 800-160 mg tablet 1 tab PO BID 7 Days Qty: 14 0RF Referrals Follow up/Referrals: Molly Yeager APRN [Primary Care Provider] - See instructions Clinical Impressions Clinical Impression: Pilonidal abscess Instructions Patient Instructions: DI for Incision and Drainage of a Skin Abscess Discharge ED Provider: Scott Fragoso General Adult HPI General Chief complaint: Wound/Laceration Stated complaint: knot on his back Time Seen by Provider: 10/04/22 13:45 Mode of Arrival: Ambulatory Source of Information: Patient Limitations: No Limitations Description of Symptoms (Recalled from ER Triage Doc. by RN): Pt returned to ED for pilonidal cyst that is now draining, extending pain and induration; was started rx bactrim 09/29 History of Present Illness HPI narrative: Patient is a 42-year-old male with a past medical history of diabetes who presents with concern for pilonidal abscess. He reports that he was seen a couple of days ago and was started on Bactrim. He says he has been taking his medications but his symptoms have been getting worse. He says that it is now hard to sit down. Denies any other symptoms. Denies any fever or chills. Related Data Home Medications Medication Instructions Recorded Confirmed insulin aspart U-100 100 unit/mL 15 units SQ TID Diabetes 04/06/20 09/28/21 subcutaneous solution metformin 500 mg tablet,extended 1,000 mg PO BID Diabetes 04/06/20 09/28/21 release 24 hr apixaban 5 mg tablet 5 mg PO DAILY Blood thinner 11/24/20 01/25/21 icosapent ethyl 1 gram capsule 2 gm PO BID Cholesterol 11/24/20 01/25/21 Previous Rx's Medication Instructions Recorded clindamycin HCl 300 mg capsule 300 mg PO TID #30 caps 01/25/21 sulfamethoxazole 800 1 each PO BID #20 tabs 01/25/21 mg-trimethoprim 160 mg tablet omeprazole 20 mg capsule,delayed 20 mg PO DAILY 28 days #28 caps 04/20/22 release sulfamethoxazole 800 1 tab PO BID 7 days #14 tabs 09/29/22 mg-trimethoprim 160 mg tablet (Bactrim DS) clindamycin HCl 300 mg capsule 300 mg PO Q8H 7 days #21 caps 10/04/22 Allergies Allergy/AdvReac Type Severity Reaction Status Date / Time Penicillins [PENICILLINS] Allergy Unknown Verified 12/19/20 13:36 Iodinated Contrast Media Allergy Verified 04/20/22 15:50 [facility] Disclaimer: The information contained in this section may have been updated after the patient was seen, as this information can be updated by other users. Social History Smoking Status: Never smoker alcohol intake: never substance use type: denies use current occupational status: other Travel in the last 8 weeks: None household members: significant other housing: house caffeine: Yes ROS Obtained: Yes All systems reviewed & no additional complaints except as documented Physical Exam General General appearance: alert and in no apparent distress Head Head exam: atraumatic, normocephalic and normal inspection Eye Eye exam: Present normal appearance and PERRL ENT ENT exam: Present normal exam, mucous membranes moist and normal external ear exam Neck N
[2022-10-04 15:08] VITALS: BP 130/85; PULSE 80; RESP 17; TEMP 36.7; O2SAT 99
== END 2022-10-04 15:09 | disposition home or self-care (01) ==
PROVIDERS: Emergency Provider Student in an Organized Health Care Education/Training Program; PCP Nurse Practitioner
DX: L05.01 Pilonidal cyst with abscess (principal)
CPT/HCPCS: 10080; 99283; 99284

== ENCOUNTER 2022-12-26 20:01 | Emergency (ER) | payer OTHER, SELFPAY ==
[2022-12-26 20:17] VITALS: BP 147/100; PULSE 95; RESP 16; TEMP 36.6; O2SAT 95; BMI 31.6
--- NOTE | 2022-12-26 20:25 | CT_ITS ---
PROCEDURE INFORMATION: Exam: CT Right Lower Extremity Without Contrast, Foot Exam date and time: 12/26/2022 8:38 PM Age: 42 years old Clinical indication: Other: Toe wound; Additional info: Toe wound 2nd digit TECHNIQUE: Imaging protocol: CT of the right lower extremity without contrast was performed. Exam focused on the foot. Radiation optimization: All CT scans at this facility use at least one of these dose optimization techniques: automated exposure control; mA and/or kV adjustment per patient size (includes targeted exams where dose is matched to clinical indication); or iterative reconstruction. REPORTING DATA: Other reporting data: Count of CT and Cardiac NM examsNo acute fracture. No dislocation. in prior 12 months: This patient has received 0 known CTs and 0 known cardiac nuclear medicine studies in the 12 months prior to the current study. COMPARISON: CR [id number] XR foot wt bearing RT 3V 10/06/2017 12:13 PM FINDINGS: Limitations: Lack of intravenous contrast. Bones/joints: No acute fracture. No dislocation. Plantar calcaneal enthesophyte. No definite cortical destruction. Soft tissues: Superficial ulcer along distal second digit. Mild skin thickening. Mild stranding within subcutaneous tissues. No discrete fluid collection within limits of examination. No soft tissue gas. IMPRESSION: Probable mild cellulitis. No definite CT evidence of osteomyelitis. If there remains clinical concern for osteomyelitis, suggest MRI.
--- NOTE | 2022-12-26 20:25 | HMH.EDWNDL ---
Discharge Plan Disposition Patient Disposition: Home, Self-Care Prescriptions Prescriptions: New sulfamethoxazole-trimethoprim [Bactrim DS] 800-160 mg Tablet 1 tab PO Q12H Qty: 20 0RF cephalexin [cephalexin] 500 mg capsule 500 mg PO TID Qty: 30 0RF No Action metformin 500 MG tablet extended release 24 hr 1,000 mg PO BID atorvastatin 40 mg tablet 40 mg PO DAILY Label Comments: Take 1 tablet every day by oral route. lisinopril 20 mg tablet 20 mg PO DAILY Label Comments: Take 1 tablet every day by oral route. omeprazole 20 mg capsule,delayed release(DR/EC) 20 mg PO DAILY Label Comments: Take 1 capsule every day by oral route. insulin asp prt-insulin aspart [Novolog Mix 70-30FlexPen U-100] 100 unit/mL (70-30) insulin pen 65 unit SQ DAILY Label Comments: INJECT 70 UNITS SUBCUTANEOUSLY IN THE MORNING before breakfast and 80 units before evening meal daily fenofibrate nanocrystallized 145 mg tablet 145 mg PO DAILY Label Comments: Take 1 tablet every day by oral route. Referrals Follow up/Referrals: Molly Yeager APRN [Primary Care Provider] - See instructions Clinical Impressions Clinical Impression: Cellulitis, Type 2 diabetes mellitus with hyperglycemia, with long-term current use of insulin Instructions Patient Instructions: Cellulitis Discharge ED Provider: Gustavo (ED)Jarrell Wound/Laceration HPI General Chief Complaint: Wound/Laceration Stated Complaint: spot on right foot Time Seen by Provider: 12/26/22 20:10 Mode of Arrival: Ambulatory Source of Information: Patient, Spouse and Medical Record Limitations: No Limitations Description of Symptoms (Recalled from ER Triage Doc. by RN): Patient arrives via private vehicle c c/o right 2nd toe wound and pain. States that the wound began in late November and has gotten worse since then. Denies being seen by his pcp for the wound. States that he has been noncompliant with all of his medications including his cholesterol, diabetes and high blood pressure medications. States that he has been out of his equipment to monitor his diabetes. History of Present Illness HPI narrative: rt second toe with distal infection and reddness progressive over the last few days - pt has diabetes Onset (ago): day(s) Extremity Location: Right: foot Place: home Patient tetanus UTD: No Related Data Home Medications Medication Instructions Recorded Confirmed metformin 500 mg tablet,extended 1,000 mg PO BID Diabetes 04/06/20 12/26/22 release 24 hr atorvastatin 40 mg tablet 40 mg PO DAILY High cholesterol 12/26/22 12/26/22 fenofibrate nanocrystallized 145 145 mg PO DAILY High cholesterol 12/26/22 12/26/22 mg tablet insulin aspar prot-insulin aspart 65 unit SQ DAILY Diabetes 12/26/22 12/26/22 100 unit/mL (70-30) subcutaneous pen (Novolog Mix 70-30FlexPen U-100) lisinopril 20 mg tablet 20 mg PO DAILY High blood pressure 12/26/22 12/26/22 omeprazole 20 mg capsule,delayed 20 mg PO DAILY Indigestion 12/26/22 12/26/22 release Previous Rx's Medication Instructions Recorded cephalexin 500 mg capsule 500 mg PO TID #30 caps 12/26/22 sulfamethoxazole 800 1 tab PO Q12H #20 tabs 12/26/22 mg-trimethoprim 160 mg tablet (Bactrim DS) Allergies Allergy/AdvReac Type Severity Reaction Status Date / Time Penicillins [PENICILLINS] Allergy Unknown Verified 12/19/20 13:36 Iodinated Contrast Media AdvReac Nausea Verified 12/26/22 20:24 PFSH PFSH Disclaimer: The information contained in this section may have been updated after the patient was seen, as this information can be updated by other users. Social History Smoking Status: Never smoker alcohol intake: never substance use type: denies use current occupational status: other Travel in the last 8 weeks: None household members: significant other housing: house caffeine:
[2022-12-26 20:50] LABS: Basophils % 0.4 % (0.1-2.0); Eosinophils # 0.1 K/mm3 (0.0-0.4); Eosinophils % 1.6 % (0.1-12.0); Lymphocytes # 2.2 K/mm3 (0.7-4.5); Mean Corpuscular HGB Conc 34.9 g/dL (31.8-35.4); Mean Corpuscular Hemoglobin 29.7 pg (27.0-31.2); Mean Platelet Volume 9.4 fl (7.4-10.4); Monocytes # 0.3 K/mm3 (0.1-1.0); Monocytes % 4.1 % (1.7-9.3); Neutrophils # 5.2 K/mm3 (1.8-7.8); Neutrophils % 65.8 % (37.0-80.0); Platelet Count 221 K/mm3 (142-424); Red Blood Count 5.06 M/mm3 (4.60-6.20); Red Cell Distribution Width 13.5 % (11.5-17.5); White Blood Count 7.9 K/mm3 (4.8-10.8)
[2022-12-26 20:56] LABS: Chloride 93 mmol/L (98-107); Potassium 4.4 mmoL/L (3.5-5.1); Sodium 128 mmol/L (136-145)
[2022-12-26 20:59] LABS: Alanine Aminotransferase 32 U/L (12-78); Albumin/Globulin Ratio 1.1 (1.1-1.8); Alkaline Phosphatase 135 U/L (38-126); Anion Gap 17.4 mEq/L (5-15); Aspartate Amino Transferase 33 U/L (17-59); Bilirubin,Total 0.9 mg/dl (0.2-1.3); Blood Urea Nitrogen 14 mg/dl (9-20); Calcium 8.7 mg/dl (8.4-10.2); Carbon Dioxide 22 mmol/L (22.0-30.0); Creatinine Clearance Estimated 254 mL/min (50-200); Estimated Glomerular Filt Rate 181 ml/min (>60); GFR (African American) 220 ML/MIN (>60); Globulin 3.5 g/dL (1.3-3.2); Total Protein,Serum 7.5 g/dl (6.3-8.2)
[2022-12-26 21:00] LABS: Lactic Acid 1.1 mmol/L (0.7-2.1)
[2022-12-26 21:05] LABS: Glucose 575 mg/dl (74-100)
--- NOTE | 2022-12-26 21:05 | PC.NURSE ---
Critical glucose of 575 called from lab, level repeated and reported to Dr. Chen
[2022-12-26 21:11] LABS: Hemoglobin A1C > 14.0 % (4.0-6.0)
--- NOTE | 2022-12-26 21:13 | PC.NURSE ---
Dr. Chen at
[2022-12-26 21:29] VITALS: BP 130/87; PULSE 79; RESP 16; TEMP 36.8
[2022-12-26 21:30] VITALS: BP 130/87; PULSE 94; O2SAT 99
[2022-12-26 22:00] VITALS: BP 110/63; PULSE 85; O2SAT 98
[2022-12-26 23:00] VITALS: BP 117/65; PULSE 77; O2SAT 99
== END 2022-12-27 00:25 | disposition home or self-care (01) ==
PROVIDERS: Emergency Provider Emergency Medicine; PCP Nurse Practitioner
DX: L03.115 Cellulitis of right lower limb (principal); E11.65 Type 2 diabetes mellitus with hyperglycemia; S91.104S Unspecified open wound of right lesser toe(s) without damage to nail, sequela; X58.XXXS Exposure to other specified factors, sequela; Z23 Encounter for immunization
CPT/HCPCS: 73700; 80053; 83036; 83605; 85025; 87040; 90471; 90715; 96361; 96365; 96366; 96372; 96375; 99284; 99285; J3370

== ENCOUNTER 2023-06-04 11:21 | Inpatient (IN) | payer OTHER, SELFPAY ==
[2023-06-04] VITALS (8 sets, daily range): BP systolic 109–171; BP diastolic 62–117; PULSE 84–116; RESP 14–20; TEMP 36.7–37; O2SAT 91–100; BMI 31.0; BMI 31.9
--- NOTE | 2023-06-04 11:44 | XR_ITS ---
PROCEDURE INFORMATION: Exam: XR Right Foot Exam date and time: 06/04/2023 11:50 AM Age: 43 years old Clinical indication: Swelling or effusion of joint; Foot; Additional info: Infection, swelling toe TECHNIQUE: Imaging protocol: Radiologic exam of the right foot. Views: 3 or more views. COMPARISON: CT FOOT RT WO CON 12/26/2022 8:38 PM FINDINGS: Bones/joints: No fractures, dislocations, or focal bone lesions. Joint space narrowing affects the 1st MTP joint. Os trigonum has bone hypertrophy. Large plantar heel spur. Soft tissues: No masses, soft tissue gas, or radiopaque foreign bodies. IMPRESSION: No acute findings in the right foot. No interval change.
--- NOTE | 2023-06-04 11:47 | HMH.EDGENADL ---
Discharge Plan Disposition Patient Disposition: Admitted Condition: Fair Clinical Impressions Clinical Impression: DKA (diabetic ketoacidosis), Cellulitis of left foot, Diabetic foot ulcer Discharge ED Provider: Anali Awad General Adult HPI General Chief complaint: Extremity Problem,Nontraumatic Stated complaint: possible infected toe on left foot Time Seen by Provider: 06/04/23 11:41 Mode of Arrival: Family Vehicle Source of Information: Patient Limitations: No Limitations Description of Symptoms (Recalled from ER Triage Doc. by RN): Pt c/o worsening pain, swelling, and redness top his R foot. States he has been battling an infection to this foot from his 2nd toe for approx 1 mn. He is a diabetic and just completed a 2nd course of abx. Redness and swelling is tracking up to anterior foot. Denies fever. He has noted body aches and chills. History of Present Illness HPI narrative: This patient is a 43-year-old male with a history of diabetes and hyperlipidemia as well as a chronic wound to the left foot second toe. He states that he has been seen multiple times for this and has been put on antibiotics several times. He last finished antibiotics 2 weeks ago, though he cannot remember what antibiotic he was on. He states that it had been doing okay until last night, when it became painful and more swollen at work. He also notes that he now has redness and warmth tracking up his foot, which is new. This morning, he noticed that he had a significant drainage from the toe, which is unusual. Given this, he decided to come in. No fevers, chills, chest pain, shortness of breath, abdominal pain, nausea, vomiting or changes bowel movements, or other concerns. Related Data Home Medications Medication Instructions Recorded Confirmed metformin 500 mg tablet,extended 1,000 mg PO BID Diabetes 04/06/20 12/26/22 release 24 hr atorvastatin 40 mg tablet 40 mg PO DAILY High cholesterol 12/26/22 12/26/22 fenofibrate nanocrystallized 145 145 mg PO DAILY High cholesterol 12/26/22 12/26/22 mg tablet insulin aspar prot-insulin aspart 65 unit SQ DAILY Diabetes 12/26/22 12/26/22 100 unit/mL (70-30) subcutaneous pen (Novolog Mix 70-30FlexPen U-100) lisinopril 20 mg tablet 20 mg PO DAILY High blood pressure 12/26/22 12/26/22 omeprazole 20 mg capsule,delayed 20 mg PO DAILY Indigestion 12/26/22 12/26/22 release Allergies Allergy/AdvReac Type Severity Reaction Status Date / Time Penicillins [PENICILLINS] Allergy Unknown Verified 12/19/20 13:36 Iodinated Contrast Media AdvReac Nausea Verified 12/26/22 20:24 PFSH [facility] Disclaimer: The information contained in this section may have been updated after the patient was seen, as this information can be updated by other users. Social History Smoking Status: Never smoker alcohol intake: never substance use type: denies use current occupational status: other Travel in the last 8 weeks: None household members: significant other housing: house caffeine: Yes ROS Obtained: Yes All systems reviewed & no additional complaints except as documented Physical Exam General General appearance: alert and in no apparent distress Head Head exam: atraumatic and normocephalic Eye Eye exam: Present normal appearance, PERRL and EOMI ENT ENT exam: Present normal exam, normal oropharynx, mucous membranes moist and normal external ear exam Neck Neck exam: Present normal inspection, full ROM and trachea midline; Absent tenderness Chest Chest inspection: Present normal inspection and symmetric chest wall rise; Absent tenderness Respiratory Respiratory exam: Present normal lung sounds bilaterally; Absent respiratory distress, wheezes, stridor or accessory muscle use Cardiovascular Cardiovascular exam: Present normal rhythm and tachycardia Abdominal Exam Abdominal exam: Present soft; Absent distention, tenderness or guarding Ex
--- NOTE | 2023-06-04 11:56 | PC.NURSE ---
1 set of blood cultures drawn from left AC and sent to lab
[2023-06-04 12:30] LABS: Basophils % 0.3 % (0.1-2.0); Eosinophils # 0.1 K/mm3 (0.0-0.4); Eosinophils % 0.8 % (0.1-12.0); Hematocrit 47.4 % (42.0-52.0); Hemoglobin 15.9 g/dL (14.1-18.0); Lymphocytes # 1.7 K/mm3 (0.7-4.5); Lymphocytes % 11.3 % (10-50); Mean Corpuscular HGB Conc 33.5 g/dL (31.8-35.4); Mean Corpuscular Hemoglobin 29.6 pg (27.0-31.2); Mean Corpuscular Volume 88.2 fl (80-94); Mean Platelet Volume 9.3 fl (7.4-10.4); Monocytes # 0.7 K/mm3 (0.1-1.0); Monocytes % 4.8 % (1.7-9.3); Neutrophils # 12.3 K/mm3 (1.8-7.8); Neutrophils % 82.8 % (37.0-80.0); Platelet Count 181 K/mm3 (142-424); Red Blood Count 5.38 M/mm3 (4.60-6.20); Red Cell Distribution Width 13.2 % (11.5-17.5); White Blood Count 14.8 K/mm3 (4.8-10.8)
[2023-06-04 12:43] LABS: Lactic Acid 1.2 mmol/L (0.7-2.1)
[2023-06-04 12:44] LABS: Alanine Aminotransferase 27 U/L (12-78); Albumin Level 4.2 g/dl (3.5-5.0); Albumin/Globulin Ratio 1.2 (1.1-1.8); Alkaline Phosphatase 139 U/L (38-126); Anion Gap 19.2 mEq/L (5-15); Aspartate Amino Transferase 25 U/L (17-59); Bilirubin,Total 1.3 mg/dl (0.2-1.3); Blood Urea Nitrogen 12 mg/dl (9-20); Calcium 8.4 mg/dl (8.4-10.2); Carbon Dioxide 18 mmol/L (22.0-30.0); Chloride 95 mmol/L (98-107); Creatinine Clearance Estimated 181 mL/min (50-200); Estimated Glomerular Filt Rate 123 ml/min (>60); GFR (African American) 148 ML/MIN (>60); Globulin 3.5 g/dL (1.3-3.2); Glucose 361 mg/dl (74-100); Potassium 4.2 mmoL/L (3.5-5.1); Sodium 128 mmol/L (136-145); Total Protein,Serum 7.7 g/dl (6.3-8.2)
[2023-06-04 12:55] LABS: C-Reactive Protein 101.5 mg/L (0-4)
[2023-06-04 13:03] LABS: Procalcitonin 0.197 ng/mL (0.0-2.0)
[2023-06-04 13:06] LABS: VBG Base Excess -9.6 mmol/L (-2.4-2.3); VBG HCO3 17.6 mmol/L (23-30); VBG PCO2 40.7 mmol/L (35-51); VBG PH 7.25 mmol/L (7.31-7.41); VBG PO2 32.5 mmol/L (28-40); VBG Total CO2 18.8 mmol/L (23-27)
[2023-06-04 13:22] LABS: Acetone, Serum (Rapid) Small (None Detect)
[2023-06-04 13:53] LABS: Erythrocyte Sedimentation Rate 59 mm/hr (0-15)
--- NOTE | 2023-06-04 14:00 | PC.NURSE ---
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
--- NOTE | 2023-06-04 14:01 | EXP.HP ---
History of Present Illness *Admission Date: 06/04/23 *Reason for visit:: drainage from foot, pain in foot *History of present illness: Mr. Orellana is a 43-year-old male with poorly controlled diabetes, hyperlipidemia, class I obesity and prolonged infection in his right foot. Presented to the ER today due to pain, swelling, redness in his right foot. He has been battling an infection off and on over the past year in his right second toe. Noted draining this morning when walking at home. Had some pain in the dorsum of his foot. Came to the ER for further evaluation. Recently completed a 10-day course of antibiotics 2 weeks ago. Was doing okay until yesterday when he noted swelling overnight and pain. States that the swelling began a year ago while playing baseball with his son. He was running in a pair of crocs and jammed the end of his toe. Had subsequent swelling with the toe turning purple. Has been problematic ever since. Hole in his toe has been present for the better part of the past year. Denies any fever or chills, no chest pain, shortness of breath, abdominal pain. Has had some nausea with decreased p.o. intake lately however. Also states blood sugar has been running high. On evaluation in the ER, patient found to have anion gap, elevated glucose, leukocytosis, tachycardia. Meeting criteria for sepsis and DKA. X-ray showed no subcutaneous gas or over destruction of bone. Initiated on broad-spectrum antibiotics and medicine was consulted for admission. On arrival to the floor, patient is stable on room air. Alert and oriented x 4. Complaining of some pain in his foot but otherwise feels okay. Remains tachycardic. [facility] Disclaimer: The information contained in this section may have been updated after the patient was seen, as this information can be updated by other users. Medical History Diabetes mellitus, type 2 Hyperlipidemia Hypertension Surgical History H/O lateral meniscus repair of left knee History of tonsillectomy Family History No significant family history Social History Smoking Status: Never smoker alcohol intake: never substance use type: denies use current occupational status: employed Travel in the last 8 weeks: None household members: significant other housing: house caffeine: Yes Meds Home Medications and Allergies Home Medications Medication Instructions Recorded Confirmed Type metformin 500 mg tablet,extended 1,000 mg PO BID Diabetes 04/06/20 06/04/23 History release 24 hr atorvastatin 40 mg tablet 40 mg PO DAILY High cholesterol 12/26/22 06/04/23 History insulin aspar prot-insulin aspart See Rx Instructions .Route 12/26/22 06/04/23 History 100 unit/mL (70-30) subcutaneous .COMPLEX Diabetes pen (Novolog Mix 70-30FlexPen U-100) lisinopril 20 mg tablet 20 mg PO DAILY High blood pressure 12/26/22 06/04/23 History omeprazole 20 mg capsule,delayed 20 mg PO DAILY Indigestion 12/26/22 06/04/23 History release semaglutide 0.25 mg or 0.5 mg (2 See Rx Instructions .Route .COMPLEX 06/04/23 06/04/23 History mg/3 mL) subcutaneous pen injector (Ozempic) New Prescriptions to Start Prescriptions: Allergies Allergy/AdvReac Type Severity Reaction Status Date / Time Penicillins [PENICILLINS] Allergy Unknown Verified 06/04/23 15:14 Iodinated Contrast Media AdvReac Nausea Verified 06/04/23 15:14 Exam Data for Last 24 hours Vital signs and Labs for Last 24 Hours: Temp Pulse Resp BP Pulse Ox O2 Del Method 98.0 F 112 H 18 171/117 H 99 Room Air 06/04/23 11:22 06/04/23 11:50 06/04/23 11:50 06/04/23 11:50 06/04/23 11:50 06/04/23 11:41 Laboratory Results - last 24 hr 06/04/23 11:55: WBC 14.8 H, RBC 5.38, Hgb 15.9, Hct 47.4, MC
[2023-06-04 14:35] LABS: POC Glucose,Bedside 301 (70-110)
[2023-06-04 14:40] LABS: Hemoglobin A1C 9.9 % (4.0-6.0)
[2023-06-04 14:52] LABS: Chloride 99 mmol/L (98-107); Sodium 129 mmol/L (136-145)
[2023-06-04 14:54] LABS: Acetone, Serum (Rapid) Small (None Detect)
[2023-06-04 14:56] LABS: Blood Urea Nitrogen 11 mg/dl (9-20); Calcium 8.2 mg/dl (8.4-10.2); Carbon Dioxide 18 mmol/L (22.0-30.0); Creatinine Clearance Estimated 212 mL/min (50-200); Estimated Glomerular Filt Rate 146 ml/min (>60); GFR (African American) 177 ML/MIN (>60); Glucose 277 mg/dl (74-100)
--- NOTE | 2023-06-04 14:59 | PC.NURSE ---
arrived by w/c from ED
--- NOTE | 2023-06-04 15:05 | PC.NURSE ---
Addendum entered by Kimmy Mac RN 06/04/23 15:08: MD Gale also stated if no drip and pt can take po, no IVF needed at this time but encourage pt to drink Original Note: admitted pt to 217 from ED, pt has bilateral IV's and is on room air at this time, call light within reach notified MD Gale that pt's last glucose was 277, gap is closed at 12 ([id number]=12), and small acetone detected; MD Gale stated to cover the 277 with sliding scale insulin ordered and give lantus starting tonight per emar
--- NOTE | 2023-06-04 15:21 | ECG_ITS ---
APPROVED REPORT Exam: Resting ECG HR:101 bpm ECG Measurements Heart Rate 101 AXES ND 167 P 57 QRSd 89 QRS 42 QT 324 T 30 QTc 382 Conclusion SINUS TACHYCARDIA ABNORMAL RHYTHM ECG UNCONFIRMED REPORT Electronically signed by : Vargas Gaston MD 06/05/2023 08:53:00
--- OUTSIDE RECORDS SUMMARY | 2023-06-04 16:12 | XMS_ITS | Clinical Summary ---
Author Name Unknown Address [address] [place] [address] Phone Organization [facility] Address [address] [place] [address] Phone Care Team Providers Care Area Forester Name Role Phone Thomas JUAREZ, Jason Unavailable [phone] ANITA JUAREZ (E), DELMI Ag Unavailable [phone] Reason for Referral Date Encounter Description Provider Reason for Referral 11/26/20 Follow Up Jason Guzman MD Referral To Physician - SEE PCP FOR BP Reason for Visit and Chief Complaint The Chief Complaint is: LUMBAR/SI PAIN LEFT AND RIGHT Problems Includes: Problems addressed during this encounter and other active Problems Current Visit Onset Date Resolved Date Provider Conditio n Status Lower Back Pain 05/09/2019 Jason Guzman MD A ctive Past Visits Onset Date Resolved Date Provider Condition Status Joint Pain, Localized in the Right Shoulder 12/29/2022 Leonidas Shipman PA-C Active Plan of Treatment Nothing is currently needed this time. I encouraged her to continue his exercise program anti-inflammatories if needed. He can repeat the injections which can be done on a therapeutic schedule at this point. Follow-up as needed. - Last Documented On 01/22/2021 2:49PM ; [facility] Instructions to patient
--- OUTSIDE RECORDS SUMMARY | 2023-06-04 16:12 | XMS_ITS | Clinical Summary ---
Author Name Unknown Address [address] [place] [address] Phone Organization [facility] Address [address] [place] [address] Phone Care Team Providers Care Proofsheet Corrector Name Role Phone Thomas JUAREZ, Jason Unavailable [phone] ANITA JUAREZ (E), DELMI Ag Unavailable [phone] Reason for Visit and Chief Complaint The Chief Complaint is: left shoulder pain Problems Includes: Problems addressed during this encounter and other active Problems Current Visit Onset Date Resolved Date Provider Conditio n Status Lower Back Pain 05/09/2019 Jason Guzman MD A ctive Past Visits Onset Date Resolved Date Provider Condition Status Joint Pain, Localized in the Right Shoulder 12/29/2022 Leonidas Shipman PA-C Active Plan of Treatment I will have him participate with some physical therapy for a few weeks. Anti-inflammatories as needed. We will see him back in 6 weeks if needed for follow-up assessment. - Last Documented On 02/06/2023 10:34AM ; [facility] Instructions to patient Lose weight Last Documented On 10:09AM ; [facility] Assessments Includes: Assessments from this encounter Findings
--- OUTSIDE RECORDS SUMMARY | 2023-06-04 16:12 | XMS_ITS ---
Care Plan - [facility] Created on: June 04, 2023 Sanjiv Orellana Dilshad : 1980 Sex: Male Author Name Unknown Address [address] [place] [address] Phone Organization [facility] Address [address] [place] [address] Phone Care Team Providers Care Drilling Field Professional Name Role Phone Thomas JUAREZ, Jason Unavailable [phone] ANITA JUAREZ (E), DELMI Ag Unavailable [phone]
--- OUTSIDE RECORDS SUMMARY | 2023-06-04 16:12 | XMS_ITS | Clinical Summary ---
Author Name Unknown Address [address] [place] [address] Phone Organization [facility] Address [address] [place] [address] Phone Care Team Providers Care Raw Juice Weigher Name Role Phone Thomas JUAREZ, Jason Unavailable [phone] ANITA JUAREZ (E), DELMI Ag Unavailable [phone] Reason for Visit and Chief Complaint The Chief Complaint is: left shoulder pain Problems Includes: Problems addressed during this encounter and other active Problems Current Visit Onset Date Resolved Date Provider Conditio n Status Lower Back Pain 05/09/2019 Jason Guzman MD A ctive Past Visits Onset Date Resolved Date Provider Condition Status Joint Pain, Localized in the Right Shoulder 12/29/2022 Leonidas Dodduel Ramonita [place] Active Plan of Treatment I will have him participate with some physical therapy for the lower back. Continue with his ibuprofen use. We will see him back in a couple months for reassessment. If still symptomatic we may consider doing further imaging studies or some injections to help treat the symptoms. - Last Documented On 03/27/2023 11:02AM ; [facility] Instructions to patient Lose weight Last Documented On 8:56AM ; [facility] Assessments Includes: Asses
--- OUTSIDE RECORDS SUMMARY | 2023-06-04 16:12 | XMS_ITS | Clinical Summary ---
Author Name Unknown Address [address] [place] [address] Phone Organization [facility] Address [address] [place] [address] Phone Care Team Providers Care Wood Milling Machine Hand Name Role Phone Thomas JUAREZ, Jason Unavailable [phone] NAITA JUAREZ (E), DELMI Ag Unavailable [phone] Reason for Visit and Chief Complaint The Chief Complaint is: left shoulder pain Problems Includes: Problems addressed during this encounter and other active Problems Current Visit Onset Date Resolved Date Provider Conditio n Status Joint Pain, Localized in the Right Shoulder 12/29/2022 Leonidas Shipman PA-C Active Past Visits Onset Date Resolved Date Provider Condition Status Pain in the Left Foot 08/17/2015 Jatin Gordillo DPShanae Active Plan of Treatment Instructions to patient Lose weight Last Documented On 3 2:20PM ; [facility] Assessments Includes: Assessments from this encounter Findings 42-year-old male patient comes in today with left shoulder pain is not sure how he injured the shoulder but it has been bothering her for about 4-5 weeks now x- rays were taken today which shows no acute abnormality or any type of evidence of chronic is
--- OUTSIDE RECORDS SUMMARY | 2023-06-04 16:12 | XMS_ITS | Clinical Summary ---
Author Name Unknown Address [address] [place] [address] Phone Organization [facility] Address [address] [place] [address] Phone Care Team Providers Care Environmental Auditor Name Role Phone Thomas JUAREZ, Jason Unavailable [phone] ANITA JUAREZ (E), DELMI Ag Unavailable [phone] Reason for Visit and Chief Complaint SI joint injection Problems Includes: Problems addressed during this encounter and other active Problems All Visits Onset Date Resolved Date Provider Condition S tatus Joint Pain, Localized in the Right Shoulder 12/29/2022 Leonidas Shipman PA-C Active Plan of Treatment Patient presents today for injection into the right SI joint under fluoroscopy. Patient was placed on the fluoroscopy table. Patient was examined determining the localized area of pain over the SI joint. Once this was performed the skin was then prepped with ChloraPrep and skin anesthetized with 1% lidocaine. Fluoroscopic guidance was used to place the 22-gauge needle into the sacroiliac joint at the most painful area. At that point a small amount of contrast was injected to confirm placement within the joint. And once confirmed an injection of bupivacaine and 40 mg of Kenalog was injected. Patient tolerated the procedure well. Sterile dressing was placed over the puncture site. And patient left the procedure room in stable condition. Follow-up evaluation approximately 10 minutes postprocedure revealing- 70-80% pain relief - Last Documented O
--- OUTSIDE RECORDS SUMMARY | 2023-06-04 16:12 | XMS_ITS ---
Author Name Unknown Address [address] [place] [address] Phone Organization [facility] Address [address] [place] [address] Phone Care Team Providers Care Drum Dyeing Machine Operator Name Role Phone Thomas JUAREZ, Jason Unavailable [phone] ANITA JUAREZ (E), DELMI Ag Unavailable [phone] Reason for Referral Date Encounter Description Provider Reason for Referral 11/26/20 Follow Up Jason Guzman MD Referral To Physician - SEE PCP FOR BP 10/25/20 Follow Up Jason Guzman MD Referral To Physician - SEE PCP FOR BP Problems Includes: Active, inactive, and resolved Problems All Visits Onset Date Resolved Date Provider Condition S tatus Joint Pain, Localized in the Right Shoulder 12/29/2022 Leonidas Shipman PAEdisonC Active Plan of Treatment Pending Tests Order Diagnosis Results Due Ordering P rovider Procedure/Tests EMG 08/31/15 Jatin perkins DPM Instructions to patient Lose weight Last Documented On 3 8:56AM ; [facility], [facility]
[2023-06-04 20:13] LABS: POC Glucose,Bedside 434 (70-110)
[2023-06-05] VITALS (7 sets, daily range): BP systolic 104–137; BP diastolic 59–88; PULSE 78–102; RESP 14–19; TEMP 36.4–36.9; O2SAT 95–99; BMI 31.8
[2023-06-05 07:08] LABS: Basophils % 0.4 % (0.1-2.0); Eosinophils # 0.2 K/mm3 (0.0-0.4); Eosinophils % 2.1 % (0.1-12.0); Hematocrit 39.4 % (42.0-52.0); Lymphocytes # 1.6 K/mm3 (0.7-4.5); Lymphocytes % 18.9 % (10-50); Mean Corpuscular HGB Conc 34.2 g/dL (31.8-35.4); Mean Corpuscular Hemoglobin 29.7 pg (27.0-31.2); Mean Corpuscular Volume 86.8 fl (80-94); Mean Platelet Volume 9.2 fl (7.4-10.4); Monocytes # 0.5 K/mm3 (0.1-1.0); Monocytes % 5.6 % (1.7-9.3); Neutrophils # 6.2 K/mm3 (1.8-7.8); Platelet Count 153 K/mm3 (142-424); Red Blood Count 4.54 M/mm3 (4.60-6.20); Red Cell Distribution Width 13.3 % (11.5-17.5); White Blood Count 8.6 K/mm3 (4.8-10.8)
--- NOTE | 2023-06-05 07:08 | CT_ITS ---
FINAL REPORT TECHNIQUE: Thin section axial CT images with coronal and sagittal reformats were performed. This study was performed with techniques to keep radiation doses as low as reasonably achievable (ALARA). Individualized dose reduction techniques using automated exposure control or adjustment of mA and/or kV according to the patient's size were employed. CLINICAL HISTORY: osteo? 2nd toe COMPARISON: 12/26/2022 FINDINGS: There are no fractures. There is erosion of the tip of the distal phalanx of the second toe, new since the prior CT of December 2022. There is associated soft tissue swelling and soft tissue air in this region. These findings are consistent with osteomyelitis. IMPRESSION: Erosion of the tip of the distal phalanx of the second toe, new since the prior CT, with soft tissue swelling and soft tissue air, consistent with osteomyelitis. Reviewed, Interpreted and Dictated by Luigi Wood III, MD Transcribed by Lori Lang Authenticated and [facility]
[2023-06-05 07:09] LABS: Alanine Aminotransferase 21 U/L (12-78); Albumin Level 3.4 g/dl (3.5-5.0); Albumin/Globulin Ratio 1.1 (1.1-1.8); Alkaline Phosphatase 101 U/L (38-126); Anion Gap 9.8 mEq/L (5-15); Aspartate Amino Transferase 20 U/L (17-59); Bilirubin,Total 0.5 mg/dl (0.2-1.3); Blood Urea Nitrogen 9 mg/dl (9-20); Calcium 8.1 mg/dl (8.4-10.2); Carbon Dioxide 24 mmol/L (22.0-30.0); Chloride 102 mmol/L (98-107); Creatinine Clearance Estimated 181 mL/min (50-200); Estimated Glomerular Filt Rate 123 ml/min (>60); GFR (African American) 148 ML/MIN (>60); Globulin 3.1 g/dL (1.3-3.2); Glucose 266 mg/dl (74-100); Magnesium 1.6 mg/dl (1.6-2.3); Potassium 3.8 mmoL/L (3.5-5.1); Sodium 132 mmol/L (136-145); Total Protein,Serum 6.5 g/dl (6.3-8.2)
[2023-06-05 07:12] LABS: Hemoglobin 13.5 g/dL (14.1-18.0)
[2023-06-05 07:19] LABS: POC Glucose,Bedside 250 (70-110)
--- NOTE | 2023-06-05 07:33 | HMH.PHAINT1 ---
Pharmacy Intervention Comments: MEDICATION RECONCILIATION COMPLETED ON PATIENT USING EXTERNAL FILL HISTORY FROM PHARMACY. -BETSY BARRAGAN, ROND
--- NOTE | 2023-06-05 07:58 | EXP.PHA.CONS ---
Pharmacy Consult Date: 06/05/23 Time: 07:58 Referring provider: DR MCMAHON Reason for Consult:: VANCOMYCIN DOSING CONSULT Allergies Allergy/AdvReac Type Severity Reaction Status Date / Time Penicillins [PENICILLINS] Allergy Unknown Verified 06/04/23 15:14 Iodinated Contrast Media AdvReac Nausea Verified 06/04/23 15:14 Home Medications Medication Instructions Recorded Confirmed Type metformin 500 mg tablet,extended 1,000 mg PO BID Diabetes 04/06/20 06/05/23 History release 24 hr atorvastatin 40 mg tablet 40 mg PO DAILY Cholesterol 12/26/22 06/05/23 History insulin aspar prot-insulin aspart 0 unit SQ DIRECTED Diabetes 12/26/22 06/05/23 History 100 unit/mL (70-30) subcutaneous pen (Novolog Mix 70-30FlexPen U-100) lisinopril 20 mg tablet 20 mg PO DAILY High blood pressure 12/26/22 06/05/23 History omeprazole 20 mg capsule,delayed 20 mg PO DAILY Acid Reflux 12/26/22 06/05/23 History release semaglutide 0.25 mg or 0.5 mg (2 0.5 mg SQ WEEKLY Diabetes 06/04/23 06/05/23 History mg/3 mL) subcutaneous pen injector (Ozempic) New Prescriptions to Start Prescriptions: Height: 1.73 m Weight: 95.25 kg Laboratory Results:: Laboratory Results - last 24 hr 06/04/23 11:55: WBC 14.8 H, RBC 5.38, Hgb 15.9, Hct 47.4, MCV 88.2, MCH 29.6, MCHC 33.5, RDW 13.2, Plt Count 181, MPV 9.3, Neut % (Auto) 82.8 H, Lymph % (Auto) 11.3, [place] % (Auto) 4.8, Eos % (Auto) 0.8, Baso % (Auto) 0.3, Neut # (Auto) 12.3 H, Lymph # (Auto) 1.7, [place] # (Auto) 0.7, Eos # (Auto) 0.1, Baso # (Auto) 0.0, ESR 59 H, Sodium 128 L, Potassium 4.2, Chloride 95 L, Carbon Dioxide 18 L, Anion Gap 19.2 H, BUN 12, Creatinine 0.70, Estimated Creat Clear 181, Estimated GFR 123, Est GFR ( Amer) 148, Glucose 361 H, Lactate 1.2, Calcium 8.4, Total Bilirubin 1.3, AST 25, ALT 27, Alkaline Phosphatase 139 H, C-Reactive Protein 101.5 H, Total Protein 7.7, Albumin 4.2, Globulin 3.5 H, Albumin/Globulin Ratio 1.2, Procalcitonin 0.197 06/04/23 11:56: Hemoglobin A1c 9.9 H 06/04/23 11:58: Acetone Level Small 06/04/23 12:49: VBG pH 7.25 L, VBG pCO2 40.7, VBG pO2 32.5, VBG HCO3 17.6 L, VBG Total CO2 18.8 L, VBG O2 Saturation 60.0, VBG Base Excess -9.6 L 06/04/23 14:25: POC Glucose 301 H* 06/04/23 14:28: Sodium 129 L, Potassium 4.0, Chloride 99, Carbon Dioxide 18 L, Anion Gap 16.0 H, BUN 11, Creatinine 0.60 L, Estimated Creat Clear 212, Estimated GFR 146, Est GFR ( Amer) 177, Glucose 277 H D, Calcium 8.2 L, Acetone Level Small 06/04/23 20:05: POC Glucose 434 H* 06/05/23 06:29: WBC 8.6 D, RBC 4.54 L, Hgb 13.5 L D, Hct 39.4 L, MCV 86.8, MCH 29.7, MCHC 34.2, RDW 13.3, Plt Count 153, MPV 9.2, Neut % (Auto) 73.0, Lymph % (Auto) 18.9, [place] % (Auto) 5.6, Eos % (Auto) 2.1, Baso % (Auto) 0.4, Neut # (Auto) 6.2, Lymph # (Auto) 1.6, [place] # (Auto) 0.5, Eos # (Auto) 0.2, Baso # (Auto) 0.0, Sodium 132 L, Potassium 3.8, Chloride 102, Carbon Dioxide 24, Anion Gap 9.8, BUN 9, Creatinine 0.70, Estimated Creat Clear 181, Estimated GFR 123, Est GFR ( Amer) 148, Glucose 266 H, Calcium 8.1 L, Magnesium 1.6, Total Bilirubin 0.5, AST 20, ALT 21, Alkaline Phosphatase 101, Total Protein 6.5, Albumin 3.4 L D, Globulin 3.1, Albumin/Globulin Ratio 1.1 06/05/23 06:38: POC Glucose 250 H Medical History: Medical History (Updated 06/04/23 @ 16:38 by Fabian Mcmahon MD) Diabetes mellitus, type 2 Hyperlipidemia Hypertension Assessment and Plan Assessment and plan all Dx Assessment and Plan for all problems:: Pharmacokinetic dosing service Objective: Age: 43 yo Serum creatinine: 0.7 mg/dL Height: 68.1 Inches Weight (kg): 95.25 Diagnosis: CELLULITIS Assessment: IBW (kg): 68.63 Dosing wt(kg): 95.25 Estimated Creatinine clearance (ml/min): 130 Clearance limited to 130 ml/min to reduce risk of overdosing. CRCL method: Cockcroft and Gault using ibw(default). Drug selected:
--- NOTE | 2023-06-05 10:48 | EXP.ACUTE.PN ---
Subjective *Date: 06/05/23 *Time: 11:13 Interval history: Patient still having some foot pain. No fevers overnight. Tolerating good p.o. intake. Glucose still elevated on morning labs at 260. No shortness of breath or chest pain. CT obtained this morning afoot Medical Exam Vital signs and Labs for Last 24 Hours: Vital Signs Temp Pulse Pulse Resp BP BP Pulse Ox 06/05/23 08:00 06/05/23 09:00 06/05/23 08:00 100 H 06/05/23 07:42 97.9 F 102 H 16 137/88 98 06/05/23 07:00 06/05/23 05:00 06/05/23 04:00 80 06/05/23 00:00 100 H 06/05/23 04:00 78 14 104/59 L 99 06/05/23 03:00 06/05/23 01:00 06/05/23 00:00 97.9 F 100 H 16 122/73 99 06/04/23 23:00 06/04/23 20:00 100 H 06/04/23 21:00 06/04/23 20:00 91 L 06/04/23 20:00 98.3 F 84 14 109/62 L 91 L 06/04/23 18:14 06/04/23 16:37 06/04/23 16:03 100 H 06/04/23 16:00 99 06/04/23 16:00 99 H 14 145/87 H 92 L 06/04/23 15:03 06/04/23 15:05 98.2 F 116 H 20 151/92 H 95 06/04/23 14:38 98.6 F 100 H 17 134/74 06/04/23 11:50 112 H 18 171/117 H 99 06/04/23 11:41 108 H 159/101 H 100 06/04/23 11:22 98.0 F 110 H 20 154/101 H 98 O2 Del Method O2 Flow Rate 06/05/23 08:00 Room Air 06/05/23 09:00 Room Air 06/05/23 08:00 06/05/23 07:42 Room Air 06/05/23 07:00 Room Air 06/05/23 05:00 Nasal Cannula 2 06/05/23 04:00 06/05/23 00:00 06/05/23 04:00 Nasal Cannula 2 06/05/23 03:00 Nasal Cannula 2 06/05/23 01:00 Nasal Cannula 2 06/05/23 00:00 Nasal Cannula 2 06/04/23 23:00 Room Air 06/04/23 20:00 06/04/23 21:00 Room Air 06/04/23 20:00 Room Air 06/04/23 20:00 Room Air 06/04/23 18:14 Room Air 06/04/23 16:37 Room Air 06/04/23 16:03 06/04/23 16:00 Room Air 06/04/23 16:00 Room Air 06/04/23 15:03 Room Air 06/04/23 15:05 Room Air 06/04/23 14:38 Room Air 06/04/23 11:50 06/04/23 11:41 Room Air 06/04/23 11:22 Room Air Intake and Output 06/04/23 06/05/23 06/05/23 23:59 07:59 15:59 Intake Total 470 / 2070 770 / 770 Output Total 400 / 400 300 / 300 Balance 70 / 1670 470 / 470 Intake: Intake, Oral Amount 470 / 970 770 / 770 Output: Output, Urine Amount 400 / 400 300 / 300 Other: Number of Voids 1 Number of Unmeasured Voids 1 Weight 95.25 kg Patient Weight 06/05/23 23:59 Weight 95.25 kg Laboratory Results - last 24 hr 06/04/23 11:55: WBC 14.8 H, RBC 5.38, Hgb 15.9, Hct 47.4, MCV 88.2, MCH 29.6, MCHC 33.5, RDW 13.2, Plt Count 181, MPV 9.3, Neut % (Auto) 82.8 H, Lymph % (Auto) 11.3, [place] % (Auto) 4.8, Eos % (Auto) 0.8, Baso % (Auto) 0.3, Neut # (Auto) 12.3 H, Lymph # (Auto) 1.7, [place] # (Auto) 0.7, Eos # (Auto) 0.1, Baso # (Auto) 0.0, ESR 59 H, Sodium 128 L, Potassium 4.2, Chloride 95 L, Carbon Dioxide 18 L, Anion Gap 19.2 H, BUN 12, Creatinine 0.70, Estimated Creat Clear 181, Estimated GFR 123, Est GFR ( Amer) 148, Glucose 361 H, Lactate 1.2, Calcium 8.4, Total Bilirubin 1.3, AST 25, ALT 27, Alkaline Phosphatase 139 H, C-Reactive Protein 101.5 H, Total Protein 7.7, Albumin 4.2, Globulin 3.5 H, Albumin/Globulin Ratio 1.2, Procalcitonin 0.197 06/04/23 11:56: Hemoglobin A1c 9.9 H 06/04/23 11:58: Acetone Level Small 06/04/23 12:49: VBG pH 7.25 L, VBG pCO2 40.7, VBG pO2 32.5, VBG HCO3 17.6 L, VBG Total CO2 18.8 L, VBG O2 Saturation 60.0, VBG Base Excess -9.6 L 06/04/23 14:25: POC Glucose 301 H* 06/04/23 14:28: Sodium 129 L, Potassium 4.0, Chloride 99, Carbon Dioxide 18 L, Anion Gap 16.0 H, BUN 11, Creatinine 0.60 L, Estimated Creat Clear 212, Estimated GFR 146, Est GFR ( Amer) 177, Glucose 277 H D, Calcium 8.2 L, Acetone Level Small 06/04/23 20:05: POC Glucose 434 H* 06/05/23 06:29: WBC 8.6 D, RBC 4.54 L, Hgb 13.5 L D, Hct 39.4 L, MCV 86.8, MCH 29.7, MCHC 34.2, RDW 13.3, Plt Count 153, MPV 9.2,
[2023-06-05 13:23] LABS: POC Glucose,Bedside 335 (70-110)
--- NOTE | 2023-06-05 15:45 | PC.NURSE ---
PT IS RESTING IN BED. ALERT AND ORIENTED X4. EATING AND DRINKING WELL. AMBULATES TO THE BATHROOM. LUNG SOUNDS CLEAR. ABDOMEN SOFT/NON TENDER WITH ACTIVE BOWEL SOUNDS. REDNESS/SWELLING/DRAINAGE NOTED TO THE RIGHT SECOND TOE. EDEMA NOTED TO RLE. WILL CONTINUE TO MONITOR.
[2023-06-05 16:16] LABS: POC Glucose,Bedside 268 (70-110)
[2023-06-05 20:47] LABS: POC Glucose,Bedside 310 (70-110)
[2023-06-06 04:00] VITALS: BP 144/79; PULSE 83; RESP 17; TEMP 36.6; O2SAT 96; BMI 31.8; BMI 31.9
[2023-06-06 05:13] LABS: MANUAL DIFFERENTIAL MANUAL DIFFERENTIAL (MANUAL DIFF)
[2023-06-06 05:19] LABS: Chloride 104 mmol/L (98-107); Sodium 135 mmol/L (136-145)
[2023-06-06 05:20] LABS: Potassium 3.5 mmoL/L (3.5-5.1)
[2023-06-06 05:22] LABS: Blood Urea Nitrogen 11 mg/dl (9-20); Creatinine Clearance Estimated 182 mL/min (50-200); Estimated Glomerular Filt Rate 123 ml/min (>60); GFR (African American) 148 ML/MIN (>60)
[2023-06-06 05:23] LABS: Anion Gap 12.5 mEq/L (5-15); Calcium 8.7 mg/dl (8.4-10.2); Carbon Dioxide 22 mmol/L (22.0-30.0); Glucose 188 mg/dl (74-100)
[2023-06-06 05:27] LABS: Basophils % 0.3 % (0.1-2.0); Eosinophils # 0.2 K/mm3 (0.0-0.4); Eosinophils % 2.6 % (0.1-12.0); Hemoglobin 13.6 g/dL (14.1-18.0); Lymphocytes # 2.2 K/mm3 (0.7-4.5); Lymphocytes % 28.3 % (10-50); Mean Corpuscular HGB Conc 34.9 g/dL (31.8-35.4); Mean Corpuscular Hemoglobin 30.4 pg (27.0-31.2); Mean Platelet Volume 8.7 fl (7.4-10.4); Monocytes # 0.4 K/mm3 (0.1-1.0); Monocytes % 5.1 % (1.7-9.3); Neutrophils % 63.7 % (37.0-80.0); Platelet Count 140 K/mm3 (142-424); Red Blood Count 4.48 M/mm3 (4.60-6.20); Red Cell Distribution Width 13.2 % (11.5-17.5); White Blood Count 7.8 K/mm3 (4.8-10.8)
[2023-06-06 05:29] LABS: POC Glucose,Bedside 176 (70-110)
[2023-06-06 05:31] LABS: Vancomycin,Trough 8.3 ug/mL (5.0-10.0)
[2023-06-06 05:35] LABS: Eosinophils % 1 % (0-3); Lymphocytes % 34 % (10-50); Monocytes % 1 % (2-9); Neutrophils % 64 % (42-76); Total Cells Counted 100
[2023-06-06 05:36] LABS: Platelet Estimate Slight Decrease; RBC Morphology Normal
--- NOTE | 2023-06-06 07:15 | EXP.ACUTE.PN ---
Subjective *Date: 06/06/23 *Time: 13:08 Interval history: Patient had some drainage from his toe this morning. Remains afebrile. Denies any nausea or vomiting. Good p.o. intake. Stable on room air. Improving glucose control. Medical Exam Vital signs and Labs for Last 24 Hours: Vital Signs Temp Pulse Pulse Resp BP Pulse Ox O2 Del Method 06/06/23 06:58 Room Air 06/06/23 04:00 97.9 F 83 17 144/79 H 96 Room Air 06/06/23 05:00 Room Air 06/06/23 02:49 Room Air 06/06/23 00:59 Room Air 06/05/23 23:11 98.1 F 92 H 19 135/85 97 Room Air 06/05/23 22:33 Room Air 06/05/23 21:00 Room Air 06/05/23 20:00 Room Air 06/05/23 20:00 97.5 F L 92 H 16 135/87 95 Room Air 06/05/23 18:02 Room Air 06/05/23 17:00 Room Air 06/05/23 15:00 Room Air 06/05/23 15:08 98.5 F 88 18 132/73 97 Room Air 06/05/23 13:00 Room Air 06/05/23 11:00 Room Air 06/05/23 08:00 Room Air 06/05/23 09:00 Room Air 06/05/23 08:00 100 H 06/05/23 07:42 97.9 F 102 H 16 137/88 98 Room Air Intake and Output 06/05/23 06/05/23 06/06/23 15:59 23:59 07:59 Intake Total 360 / 2426 1296 / 2426 Output Total 0 / 900 600 / 900 0 / 0 Balance 360 / 1526 696 / 1526 0 / 0 Intake: Intake, Oral Amount 360 / 1770 640 / 1770 Intake, Total IV Amount 656 / 656 Cefepime HCl 2 gm In 0.9 % 193 / 193 Sodium Chloride 100 ml @ 200 mls/hr IV Q12H [facility] Rx#:[id number] Vancomycin HCl 2,000 mg In 0.9 463 / 463 % Sodium Chloride 250 ml @ 125 mls/hr IV Q12H [facility] Rx#:[id number] Output: Output, Urine Amount 0 / 900 600 / 900 0 / 0 Other: Number of Voids 2 Number of Unmeasured Voids 3 1 1 Number of Bowel Movements 1 Weight 95.35 kg 95.663 kg Patient Weight 06/06/23 23:59 Weight 95.663 kg Laboratory Results - last 24 hr 06/05/23 06:29: Sodium 132 L, Potassium 3.8, Chloride 102, Carbon Dioxide 24, Anion Gap 9.8, BUN 9, Creatinine 0.70, Estimated Creat Clear 181, Estimated GFR 123, Est GFR ( Amer) 148, Glucose 266 H, Calcium 8.1 L, Magnesium 1.6, Total Bilirubin 0.5, AST 20, ALT 21, Alkaline Phosphatase 101, Total Protein 6.5, Albumin 3.4 L D, Globulin 3.1, Albumin/Globulin Ratio 1.1 06/05/23 06:38: POC Glucose 250 H 06/05/23 11:34: POC Glucose 335 H* 06/05/23 16:02: POC Glucose 268 H 06/05/23 20:38: POC Glucose 310 H* 06/06/23 05:05: WBC 7.8, RBC 4.48 L, Hgb 13.6 L, Hct 39.0 L, MCV 87.0, MCH 30.4, MCHC 34.9, RDW 13.2, Plt Count 140 L, MPV 8.7, Neut % (Auto) 63.7, Lymph % (Auto) 28.3, [place] % (Auto) 5.1, Eos % (Auto) 2.6, Baso % (Auto) 0.3, Neut # (Auto) 5.0, Lymph # (Auto) 2.2, [place] # (Auto) 0.4, Eos # (Auto) 0.2, Baso # (Auto) 0.0, Total Counted 100, Neutrophils % (Manual) 64, Lymphocytes % (Manual) 34, Monocytes % (Manual) 1 L, Eosinophils % (Manual) 1, Platelet Estimate Slight decrease, RBC Morphology Normal, Sodium 135 L, Potassium 3.5, Chloride 104, Carbon Dioxide 22, Anion Gap 12.5, BUN 11, Creatinine 0.70, Estimated Creat Clear 182, Estimated GFR 123, Est GFR ( Amer) 148, Glucose 188 H D, Calcium 8.7, C-Reactive Protein 70.0 H D, Vancomycin Trough 8.3 06/06/23 05:22: POC Glucose 176 H I & O for Labs for Last 24 Hours: Intake & Output 06/03/23 06/04/23 06/05/23 06/06/23 23:59 23:59 23:59 23:59 Intake Total 1570 / 2070 2426 / 2426 Output Total 400 / 400 900 / 900 0 / 0 Balance 1170 / 1670 1526 / 1526 0 / 0 Weight 95.254 kg 95.35 kg 95.663 kg Constitutional: Present no acute distress and obese Head: Present atraumatic ENT: Present normal exam Neck: Present normal inspection Respiratory: Present normal respiratory effort; Absent rhonchi, wheezes or crackles Cardiac: Present Reg Rate and Rhythm GI: Present soft and normal bowel sounds; Absent distention or tenderness Extremities: Present full ROM and tenderness (Of right dorsum of foot and ankle) Comment:: Right leg not warm
[2023-06-06 07:54] VITALS: BP 158/82; PULSE 84; RESP 18; TEMP 36.7; O2SAT 98
[2023-06-06 08:08] LABS: Erythrocyte Sedimentation Rate 82 mm/hr (0-15)
[2023-06-06 10:54] LABS: Vancomycin,Peak 19.5 ug/ml (11-39)
--- NOTE | 2023-06-06 11:06 | EXP.PHA.CONS ---
Pharmacy Consult Date: 06/06/23 Time: 11:06 Referring provider: DR MCMAHON Reason for Consult:: VANCOMYCIN TROUGH LEVLE OBTAINED. Allergies Allergy/AdvReac Type Severity Reaction Status Date / Time Penicillins [PENICILLINS] Allergy Unknown Verified 06/04/23 15:14 Iodinated Contrast Media AdvReac Nausea Verified 06/04/23 15:14 Home Medications Medication Instructions Recorded Confirmed Type metformin 500 mg tablet,extended 1,000 mg PO BID Diabetes 04/06/20 06/05/23 History release 24 hr atorvastatin 40 mg tablet 40 mg PO DAILY Cholesterol 12/26/22 06/05/23 History insulin aspar prot-insulin aspart 0 unit SQ DIRECTED Diabetes 12/26/22 06/05/23 History 100 unit/mL (70-30) subcutaneous pen (Novolog Mix 70-30FlexPen U-100) lisinopril 20 mg tablet 20 mg PO DAILY High blood pressure 12/26/22 06/05/23 History omeprazole 20 mg capsule,delayed 20 mg PO DAILY Acid Reflux 12/26/22 06/05/23 History release semaglutide 0.25 mg or 0.5 mg (2 0.5 mg SQ WEEKLY Diabetes 06/04/23 06/05/23 History mg/3 mL) subcutaneous pen injector (Ozempic) New Prescriptions to Start Prescriptions: Height: 1.73 m Weight: 95.663 kg Laboratory Results:: Laboratory Results - last 24 hr 06/05/23 11:34: POC Glucose 335 H* 06/05/23 16:02: POC Glucose 268 H 06/05/23 20:38: POC Glucose 310 H* 06/06/23 05:05: WBC 7.8, RBC 4.48 L, Hgb 13.6 L, Hct 39.0 L, MCV 87.0, MCH 30.4, MCHC 34.9, RDW 13.2, Plt Count 140 L, MPV 8.7, Neut % (Auto) 63.7, Lymph % (Auto) 28.3, [place] % (Auto) 5.1, Eos % (Auto) 2.6, Baso % (Auto) 0.3, Neut # (Auto) 5.0, Lymph # (Auto) 2.2, [place] # (Auto) 0.4, Eos # (Auto) 0.2, Baso # (Auto) 0.0, Total Counted 100, Neutrophils % (Manual) 64, Lymphocytes % (Manual) 34, Monocytes % (Manual) 1 L, Eosinophils % (Manual) 1, Platelet Estimate Slight decrease, RBC Morphology Normal, ESR 82 H, Sodium 135 L, Potassium 3.5, Chloride 104, Carbon Dioxide 22, Anion Gap 12.5, BUN 11, Creatinine 0.70, Estimated Creat Clear 182, Estimated GFR 123, Est GFR ( Amer) 148, Glucose 188 H D, Calcium 8.7, C-Reactive Protein 70.0 H D, Vancomycin Trough 8.3 06/06/23 05:22: POC Glucose 176 H Medical History: Medical History (Updated 06/05/23 @ 10:50 by Fabian Mcmahon MD) Diabetes mellitus, type 2 Hyperlipidemia Hypertension Assessment and Plan Assessment and plan all Dx Assessment and Plan for all problems:: Pharmacokinetic dosing service Weight: 95.251 Kilograms Vancomycin single level analysis: Current dose being given: 2000 mg Current dosing interval: 12 hrs Current infusion time (hrs): 2 Single level Trough Data: Trough level obtained: 8.3 mcg/ml Timing of trough - # of hrs before next dose: 1 Hrs Desired peak: 35 mcg/ml Desired trough: 12.5 mcg/ml Diagnosis: CELLULITIS Estimated PK Parameters: New rate constant (soo): 0.139 hr-1 Half-life: 4.99 Hours Vd from levels: 66.68 Liters (0.7 L/kg) CLvanco=?? 9.269 L/hr Estimated New Dose and Interval Recommended dose: 1949.5 mg Recommended interval: 9.4 Hrs Recommendations: Give Vancomycin 1750 mg q 8 hrs. STOP VANCOMYCIN 2000 mg q12 hrs. Infuse over 2 hrs Expected Cpeak: 34.1 mcg/mL Expected Ctrough: 14.8 mcg/mL AUC 0-24 /AMANDA Data: AMANDA 0.5 mcg/mL:?? AUC/AMANDA:? 1132.8 AMANDA 1.0 mcg/mL:?? AUC/AMANDA:? 566.4 Thank you for the consult
[2023-06-06 12:23] LABS: POC Glucose,Bedside 161 (70-110)
[2023-06-06 15:22] VITALS: BP 148/85; PULSE 98; RESP 16; TEMP 36.7; O2SAT 98
[2023-06-06 16:40] LABS: POC Glucose,Bedside 153 (70-110)
--- NOTE | 2023-06-06 18:17 | PC.NURSE ---
PT IS RESTING IN BED. ALERT AND ORIENTED X4. EATING AND DRINKING WELL. AMBULATES TO THE BATHROOM AND IN THE ROOM. REDNESS/SWELLING/DRAINAGE NOTED TO THE RIGHT SECOND TOE. SWELLING TO THE RIGHT FOOT HAS IMPROVED SINCE YESTERDAY. LUNG SOUNDS CLEAR. ABDOMEN SOFT/NON TENDER WITH ACTIVE BOWEL SOUNDS. WILL CONTINUE TO MONITOR.
[2023-06-06 19:50] VITALS: BP 147/96; PULSE 97; RESP 18; TEMP 36.6; O2SAT 96
[2023-06-06 22:06] LABS: POC Glucose,Bedside 311 (70-110)
--- OUTSIDE RECORDS SUMMARY | 2023-06-07 03:26 | XMS_ITS ---
Care Plan - [facility] Created on: June 07, 2023 Sanjiv Orellana Dilshad : 1980 Sex: Male Author Name Unknown Address [address] [place] [address] Phone Organization [facility] Address [address] [place] [address] Phone Care Team Providers Care Check Processing Clerk Name Role Phone Thomas JUAREZ, Jason Unavailable [phone] ANITA JUAREZ (E), DELMI Ag Unavailable [phone]
--- OUTSIDE RECORDS SUMMARY | 2023-06-07 03:26 | XMS_ITS | Clinical Summary ---
Author Name Unknown Address [address] [place] [place] [address] Phone Organization [facility] Address [address] [place] [address] Phone Care Team Providers Care Ferryboat Captain Name Role Phone Thomas JUAREZ, Jason Unavailable [phone] ANITA JUAREZ (E), DELMI Ag Unavailable [phone] Reason for Visit and Chief Complaint The [...] weight Last Documented On 3 2:20PM ; [facility], [facility] Assessments Includes: Assessments from this encounter Findings 42-year-old male patient comes in today with left shoulder pain is not sure how he injured the shoulder but it has been bothering her for about 4-5 weeks now x- rays were taken today which shows no acute abnormality or any type of evidence of chronic is
--- OUTSIDE RECORDS SUMMARY | 2023-06-07 03:26 | XMS_ITS | Clinical Summary ---
Author Name Unknown Address [address] [place] [address] Phone Organization [facility] Address [address] [place] [place] [address] Phone Care Team Providers Care Hvac Engineering Technician Name Role Phone Thomas JUAREZ, Jason Unavailable [phone] ANITA JUAREZ (E), DELMI Ag Unavailable [phone] Reason for Visit and Chief Complaint The [...]
--- OUTSIDE RECORDS SUMMARY | 2023-06-07 03:26 | XMS_ITS | Clinical Summary ---
Author Name Unknown Address [address] [place] [address] Phone Organization [facility] Address [address] [place] [address] Phone Care Team Providers Care Drilling Rig Operator Name Role Phone Thomas JUAREZ, Jason Unavailable [phone] ANITA JUAREZ (E), DELMI Ag Unavailable [phone] Reason for Visit and Chief Complaint SI [...]
--- OUTSIDE RECORDS SUMMARY | 2023-06-07 03:26 | XMS_ITS | Clinical Summary ---
Author Name Unknown Address [address] [place] [address] Phone Organization [facility] , [facility] Address [address] [place] [address] Phone Care Team Providers Care Manager Mobile Name Role Phone Thomas JUAREZ, Jason Unavailable [phone] ANITA JUAREZ (E), DELMI Ag Unavailable [phone] Reason for Referral Date Encounter Description Provider [...] - Last Documented On 01/22/2021 2:49PM ; [facility], [facility] Instructions to patient
--- OUTSIDE RECORDS SUMMARY | 2023-06-07 03:26 | XMS_ITS | Clinical Summary ---
Author Name Unknown Address [address] [place] [address] Phone Organization [facility] Address [address] [place] [address] Phone Care Team Providers Care Imagery Intelligence Name Role Phone Thomas JUAREZ, Jason Unavailable [phone] ANITA JUAREZ (E), DELMI Ag Unavailable [phone] Reason for Visit and Chief Complaint The [...] - Last Documented On 03/27/2023 11:02AM ; [facility], [facility] Instructions to patient Lose weight Last Documented On 8:56AM ; [facility], [facility] Assessments Includes: Asses
--- OUTSIDE RECORDS SUMMARY | 2023-06-07 03:26 | XMS_ITS ---
Author Name Unknown Address [address] [place] [address] Phone Organization [facility] Address [address] [place] [address] Phone Care Team Providers Care Media Production Manager Name Role Phone Thomas JUAREZ, Jason Unavailable [phone] ANITA JUAREZ (E), DELMI Ag Unavailable [phone] Reason for Referral Date Encounter Description Provider [...] weight Last Documented On 3 8:56AM ; [facility], [facility]
[2023-06-07 04:00] VITALS: BP 139/75; PULSE 89; RESP 17; TEMP 36.6; O2SAT 98; BMI 31.7
--- NOTE | 2023-06-07 05:23 | PC.NURSE ---
Patient has been stable this shift with no acute changes noted. Patient took a shower at beginning of shift. Right second toe is still red, swollen and has three small open areas with clear drainage, patient c/o pain from knee to toe in a single line. Patient states the pain is a burning sensation. Lungs are clear, bowel sounds active X4, no pitting edema noted. FSBS was elevated at 2100 (311) treated per SSI. Bedside table, personal belongings, call light, water pitcher in reach. Continue POC and medsurg protocols.
[2023-06-07 06:13] LABS: POC Glucose,Bedside 206 (70-110)
[2023-06-07 08:00] VITALS: BP 136/85; PULSE 85; RESP 18; TEMP 37; O2SAT 97
[2023-06-07 08:28] LABS: Anion Gap 15.2 mEq/L (5-15); Blood Urea Nitrogen 12 mg/dl (9-20); Calcium 8.4 mg/dl (8.4-10.2); Carbon Dioxide 14 mmol/L (22.0-30.0); Chloride 105 mmol/L (98-107); Creatinine Clearance Estimated 181 mL/min (50-200); Estimated Glomerular Filt Rate 123 ml/min (>60); GFR (African American) 148 ML/MIN (>60); Glucose 195 mg/dl (74-100); Potassium 4.2 mmoL/L (3.5-5.1); Sodium 130 mmol/L (136-145)
--- NOTE | 2023-06-07 10:26 | EXP.ACUTE.PN ---
Subjective *Date: 06/07/23 *Time: 15:08 Interval history: Patient denies any chest pain, shortness of breath, nausea, fever. Pain improved and foot. Toe still swollen. Medical Exam Vital signs and Labs for Last 24 Hours: Vital Signs Temp Pulse Resp BP Pulse Ox O2 Del Method 06/07/23 08:00 Room Air 06/07/23 09:00 Room Air 06/07/23 08:00 98.6 F 85 18 136/85 97 Room Air 06/07/23 06:20 Room Air 06/07/23 04:00 97.9 F 89 17 139/75 98 06/07/23 01:00 Room Air 06/06/23 21:00 Room Air 06/06/23 19:50 97.8 F 97 H 18 147/96 H 96 Room Air 06/06/23 18:17 Room Air 06/06/23 17:00 Room Air 06/06/23 15:22 98.0 F 98 H 16 148/85 H 98 Room Air 06/06/23 15:00 Room Air 06/06/23 13:00 Room Air 06/06/23 11:00 Room Air Intake and Output 06/06/23 06/07/23 06/07/23 23:59 07:59 15:59 Intake Total 1110 / 2630 710 / 950 240 / 950 Output Total 450 / 450 0 / 0 Balance 660 / 2180 710 / 950 240 / 950 Intake: Intake, Oral Amount 360 / 1530 360 / 600 240 / 600 Intake, Total IV Amount 750 / 1100 350 / 350 Levofloxacin/D5w 750 mg/150 ml 150 / 150 750 mg In 150 ml @ 100 mls/hr IV Q24H [facility] Rx#:[id number] Vancomycin HCl 2,000 mg In 0.9 250 / 250 % Sodium Chloride 250 ml @ 125 mls/hr IV Q12H [facility] Rx#:[id number] Vancomycin/Water For Inj (Peg) 350 / 700 350 / 350 1.75 gm In 350 ml @ 175 mls/hr IV Q8H [facility] Rx#:[id number] Output: Output, Urine Amount 450 / 450 0 / 0 Other: Number of Voids 1 Number of Unmeasured Voids 1 Weight 95.073 kg Patient Weight 06/07/23 23:59 Weight 95.073 kg Laboratory Results - last 24 hr 06/06/23 10:00: Vancomycin Peak 19.5 11/25/23 11:18: POC Glucose 161 H 06/06/23 16:12: POC Glucose 153 H 06/06/23 21:02: POC Glucose 311 H* 06/07/23 06:06: POC Glucose 206 H 06/07/23 07:50: Sodium 130 L, Potassium 4.2, Chloride 105, Carbon Dioxide 14 L, Anion Gap 15.2 H, BUN 12, Creatinine 0.70, Estimated Creat Clear 181, Estimated GFR 123, Est GFR ( Amer) 148, Glucose 195 H, Calcium 8.4 I & O for Labs for Last 24 Hours: Intake & Output 06/04/23 06/05/23 06/06/23 06/07/23 23:59 23:59 23:59 23:59 Intake Total 1570 / 2070 2426 / 2426 1920 / 2630 950 / 950 Output Total 400 / 400 900 / 900 450 / 450 0 / 0 Balance 1170 / 1670 1526 / 1526 1470 / 2180 950 / 950 Weight 95.254 kg 95.35 kg 95.663 kg 95.073 kg Constitutional: Present no acute distress and obese Head: Present atraumatic ENT: Present normal exam Neck: Present normal inspection Respiratory: Present normal respiratory effort; Absent rhonchi, wheezes or crackles Cardiac: Present Reg Rate and Rhythm GI: Present soft and normal bowel sounds; Absent distention or tenderness Extremities: Present full ROM and tenderness (Of right dorsum of foot and ankle) Comment:: Right leg not warm. improved tenderness on dorsum of foot. Right second toe still quite swollen with scant drainage from 2 locations, Foul smell from drainage. Skin: Present intact; Absent erythema Neuro: Present Grossly Intact, alert, awake, oriented x 3 and moves all extremities Assessment and Plan *Assessment and plan (1) Osteomyelitis: Status: Acute Qualifiers: Osteomyelitis type: other acute Osteomyelitis location: foot Laterality: right Qualified Code(s): M86.171 - Other acute osteomyelitis, right ankle and foot Category: Medical Code(s): M86.9 - Osteomyelitis, unspecified (2) Cellulitis: Status: Acute Qualifiers: Laterality: right Site of cellulitis: extremity Site of cellulitis of extremity: lower extremity Qualified Code(s): L03.115 - Cellulitis of right lower limb Category: Medical Code(s): L03.90 - Cellulitis, unspecified (3) Type 2 diabetes mellitus with hyperglycemia, with long-term current use of insulin: Status: Chronic Category: Medical Code(s)
[2023-06-07 11:31] LABS: POC Glucose,Bedside 179 (70-110)
[2023-06-07 15:33] VITALS: BP 140/76; PULSE 102; RESP 17; TEMP 36.8; O2SAT 97
[2023-06-07 16:26] LABS: POC Glucose,Bedside 300 (70-110)
[2023-06-07 16:40] LABS: MANUAL DIFFERENTIAL MANUAL DIFFERENTIAL (MANUAL DIFF)
[2023-06-07 16:45] LABS: Basophils # 0.1 K/mm3 (0-0.2); Basophils % 0.4 % (0.1-2.0); Eosinophils # 0.3 K/mm3 (0.0-0.4); Eosinophils % 2.3 % (0.1-12.0); Hematocrit 45.8 % (42.0-52.0); Hemoglobin 15.6 g/dL (14.1-18.0); Lymphocytes # 2.2 K/mm3 (0.7-4.5); Mean Corpuscular Hemoglobin 29.8 pg (27.0-31.2); Mean Corpuscular Volume 87.6 fl (80-94); Mean Platelet Volume 8.8 fl (7.4-10.4); Monocytes # 0.6 K/mm3 (0.1-1.0); Monocytes % 4.3 % (1.7-9.3); Neutrophils % 76.1 % (37.0-80.0); Platelet Count 247 K/mm3 (142-424); Red Blood Count 5.23 M/mm3 (4.60-6.20); Red Cell Distribution Width 13.1 % (11.5-17.5); White Blood Count 13.1 K/mm3 (4.8-10.8)
--- NOTE | 2023-06-07 17:33 | PC.NURSE ---
PT IS RESTING IN BED. EATING AND DRINKING WELL. PT STATES HIS RIGHT FOOT IS STARTING TO FEEL BETTER. SWELLING HAS IMPROVED. PT CONTINUES TO HAVE REDNESS AND DRAINAGE TO THE RIGHT SECOND TOE. CLEANED WITH BEDADINE THIS SHIFT. PT HAS AMBULATED TO THE BATHROOM AND IN THE ROOM. WILL CONTINUE TO MONITOR.
[2023-06-07 19:39] LABS: Eosinophils % 1 % (0-3); Lymphocytes % 25 % (10-50); Monocytes % 2 % (2-9); Neutrophils % 72 % (42-76); Total Cells Counted 100
[2023-06-07 19:40] LABS: Platelet Estimate Normal; RBC Morphology Normal
[2023-06-07 20:00] VITALS: BP 135/84; PULSE 100; RESP 18; TEMP 36.9; O2SAT 98
[2023-06-07 21:11] LABS: POC Glucose,Bedside 263 (70-110)
[2023-06-08] VITALS (20 sets, daily range): BP systolic 87–148; BP diastolic 50–86; PULSE 78–100; RESP 16–22; TEMP 36.2–37.1; O2SAT 94–100; BMI 31.6
[2023-06-08 05:29] LABS: POC Glucose,Bedside 167 (70-110)
[2023-06-08 07:21] LABS: MANUAL DIFFERENTIAL MANUAL DIFFERENTIAL (MANUAL DIFF)
[2023-06-08 07:33] LABS: Anion Gap 13.6 mEq/L (5-15); Blood Urea Nitrogen 10 mg/dl (9-20); Calcium 8.6 mg/dl (8.4-10.2); Carbon Dioxide 20 mmol/L (22.0-30.0); Chloride 103 mmol/L (98-107); Creatinine Clearance Estimated 180 mL/min (50-200); Estimated Glomerular Filt Rate 123 ml/min (>60); GFR (African American) 148 ML/MIN (>60); Glucose 143 mg/dl (74-100); Potassium 3.6 mmoL/L (3.5-5.1); Sodium 133 mmol/L (136-145)
[2023-06-08 07:38] LABS: Basophils % 0.4 % (0.1-2.0); Eosinophils # 0.4 K/mm3 (0.0-0.4); Eosinophils % 3.2 % (0.1-12.0); Hematocrit 42.8 % (42.0-52.0); Hemoglobin 14.8 g/dL (14.1-18.0); Lymphocytes # 2.7 K/mm3 (0.7-4.5); Lymphocytes % 23.4 % (10-50); Mean Corpuscular HGB Conc 34.6 g/dL (31.8-35.4); Mean Corpuscular Hemoglobin 29.7 pg (27.0-31.2); Mean Corpuscular Volume 85.8 fl (80-94); Mean Platelet Volume 8.6 fl (7.4-10.4); Monocytes # 0.6 K/mm3 (0.1-1.0); Monocytes % 5.3 % (1.7-9.3); Neutrophils # 7.7 K/mm3 (1.8-7.8); Neutrophils % 67.7 % (37.0-80.0); Platelet Count 213 K/mm3 (142-424); Red Blood Count 4.98 M/mm3 (4.60-6.20); Red Cell Distribution Width 13.3 % (11.5-17.5); White Blood Count 11.4 K/mm3 (4.8-10.8)
[2023-06-08 07:45] LABS: C-Reactive Protein 37.7 mg/L (0-4)
--- NOTE | 2023-06-08 08:20 | EXP.POD.CONS ---
History of Present Illness *Admission Date: 06/04/23 *Reason for visit:: Right second toe osteomyelitis *History of present illness: Mr. Orellana is a 43-year-old male with poorly controlled diabetes, hyperlipidemia, class I obesity and prolonged infection in his right foot. Presented to the ER today due to pain, swelling, redness in his right foot. He has been battling an infection off and on over the past year in his right second toe. Noted draining this morning when walking at home. Had some pain in the dorsum of his foot. Came to the ER for further evaluation. Recently completed a 10-day course of antibiotics 2 weeks ago. Was doing okay until yesterday when he noted swelling overnight and pain. States that the swelling began a year ago while playing baseball with his son. He was running in a pair of crocs and jammed the end of his toe. Had subsequent swelling with the toe turning purple. Has been problematic ever since. Hole in his toe has been present for the better part of the past year. Denies any fever or chills, no chest pain, shortness of breath, abdominal pain. Has had some nausea with decreased p.o. intake lately however. Also states blood sugar has been running high. On evaluation in the ER, patient found to have anion gap, elevated glucose, leukocytosis, tachycardia. Meeting criteria for sepsis and DKA. X-ray showed no subcutaneous gas or over destruction of bone. Initiated on broad-spectrum antibiotics and medicine was consulted for admission. On arrival to the floor, patient is stable on room air. Alert and oriented x 4. Complaining of some pain in his foot but otherwise feels okay. Remains tachycardic. Podiatry consult: Reviewed HPI as above. Patient reports right second toe infection for over a year. He has been under the care of his PCP. Has failed multiple rounds of oral antibiotics. Reports last A1c 9.9 was over 14. He had been seeing [facility] but has not been recently. 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 No history of distal extremity vascular disease. Palpable pulses. Determined ABIs not necessary at this time. X-ray and CT confirm bony erosive changes to the toe. Patient seen and evaluated at the bedside, Anna present. All questions answered. Plan for surgery today. [facility] Disclaimer: The information contained in this section may have been updated after the patient was seen, as this information can be updated by other users. Medical History Diabetes mellitus, type 2 Hyperlipidemia Hypertension Surgical History H/O lateral meniscus repair of left knee History of tonsillectomy Family History No significant family history Social History Smoking Status: Never smoker alcohol intake: never substance use type: denies use current occupational status: employed Travel in the last 8 weeks: None household members: significant other housing: house caffeine: Yes Review of Systems Review of Systems Review of systems:: pertinent systems reviewed and negative unless documented below Constitutional Constitutional: Reports system reviewed and no additional complaints, except as documented Eyes Eyes: Reports system reviewed and no additional complaints, except as documented ENT Ears, Nose, Mouth, and Throat: Reports system reviewed and no additional complaints, except as documented *Cardiovascular Cardiovascular: Reports system reviewed and no additional complaints, except as documented *Respiratory Respiratory: Reports system reviewed and no additional complaints, except as documented *Gastrointestinal Gastrointestinal: Reports system reviewed and no additional complaints, except as documented *Genitourinary Genitourinary: Reports system reviewed and no additional complaints, except as docume
[2023-06-08 09:08] LABS: Erythrocyte Sedimentation Rate 70 mm/hr (0-15)
[2023-06-08 09:39] LABS: Eosinophils % 3 % (0-3); Lymphocytes % 25 % (10-50); Monocytes % 8 % (2-9); Neutrophils % 64 % (42-76); Total Cells Counted 100
[2023-06-08 09:40] LABS: Platelet Estimate Normal; RBC Morphology Normal
[2023-06-08 11:47] LABS: POC Glucose,Bedside 101 (70-110)
--- NOTE | 2023-06-08 12:03 | EXP.ANES.CKL ---
[facility] Disclaimer: The information contained in this section may have been updated after the patient was seen, as this information can be updated by other users. Medical History Diabetes mellitus, type 2 Hyperlipidemia Hypertension Surgical History H/O lateral meniscus repair of left knee History of tonsillectomy Family History Other No significant family history Social History Smoking Status: Never smoker alcohol intake: never substance use type: denies use current occupational status: employed Travel in the last 8 weeks: None household members: significant other housing: house caffeine: Yes [facility] Anesthesia Checklist Patient Identification Patient Identification: Arm Band and Verbal (Name & ) Structural Data Admitted From: Inpatient Planned Operative Procedure/s: Toe amputation Consent for Planned Operative Procedure(s) Verified: Yes NPO Status Verified Time NPO: 00:00 Chart Verification Results Verified: CBC Additional verifications Anesthesia Reactions: No Airway Assessment Mallampati Score:: Class II C-Spine Mobility Assessed: Yes TMJ Mobility Assessed: Yes Dentition: Poor Dentition Neurological Assessment Level of Consciousness: Awake Hx Seizures: No Numbness or tingling in extremities: Yes Anesthesia Plan Anesthesia Risk discussed: Yes Anesthesia Plan: Verified ASA Class: III Anesthesia Type: General
--- NOTE | 2023-06-08 13:15 | XR_ITS ---
FINAL REPORT CLINICAL HISTORY: Post op amp 2nd digit right foot COMPARISON: None FINDINGS: Three views show status post amputation of the 2nd digit at the level of the MTP joint. Calcaneal spurring is noted. There are mild degenerative changes of the midfoot. IMPRESSION: Degenerative and postoperative changes as above. Reviewed, Interpreted and Dictated by Colten James MD Transcribed by Tiffanie Avitia Authenticated and [facility]
--- NOTE | 2023-06-08 13:15 | EXP.OP.NOTE ---
Date of procedure: 06/08/23 Pre-op Diagnosis:: Right second toe osteomyelitis Right foot cellulitis Diabetic foot ulcer Post-op Diagnosis:: Same Procedure performed:: Right second toe amputation Surgeon:: Cheryl Scott DPM FINANCE SPECIALIST:: Tyrone Morgan Anesthesia: local (20 cc 0.5% Marcaine plain) and LMA Estimated blood loss (mL): 10 Clinical Note:: X-rays and CT of the right foot were reviewed and show osteomyelitis of the second toe. Conservative and surgical treatment options were discussed with patient. See consult note for full details. Discussed risk and benefits of surgery. Patient understands that they could have wound healing complications including delayed healing and infection. We discussed that if the wound does not heal, it is possible that they may need a more proximal amputation and could result in further loss of digits, loss of partial foot or loss of leg. We discussed the risks and benefits in great detail. Other surgical risks include: prolonged pain and swelling, further infection requiring oral or IV antibiotics, delay in healing of soft tissue or bone, nerve or blood vessel damage, CRPS/RSD, DVT, anesthesia complications, and even . All questions answered. Patient verbalized understanding. Consent obtained. Operative findings:: Right second toe skin blistering and flaking skin with cellulitis, edema and erythema extended to the MPJ. Upon squeezing of the distal toe there was some skin sloughing with ulcer noted at the distal tip 0.5 x 0.5 x 0.3 cm. Periwound callus noted. There was some purulent discharge at the distal toe. Wound culture taken. The distal and middle phalanx were both soft and crumbly with malodor. Proximal phalanx head had some cortical erosions. Proximal phalanx base was intact. Second metatarsal head intact with no cortical erosions. Infection seem localized to the second toe and did not appear to extend into the foot. Operative note:: On this date and time patient was deemed an appropriate surgical candidate. With informed consent signed, the patient was taken to the operating theater. The patient was positioned supine. LMA anesthesia was induced. No tourniquet used. Pre-op right second toe block given with 10 cc 0.5% marcaine plain. Vancomycin given on floor. IV clindamycin given Right 2nd irrigation and debridement, digit amputation: The right lower extremity was prepped and drapped in normal sterile fashion. Cellulitis is noted extending to the MPJ. A fish mouth incision was mapped out. Utilizing a 15 blade dissection was carried down sharply to the level of the bone around the medial phalanx which was disarticulated from the proximal phalanx. The distal and middle phalanx bone was soft and crumbly and had an malodor to it. Portion of it was cut and sent for bone culture and the other part was sent for bone biopsy for pathology. Attention was then directed to the proximal phalanx. The head was with cortical erosions noted. Proximal phalanx was disarticulated from the metatarsal head and sent for bone path proximal margin. The head of the second metatarsal was intact with no cortical erosions, discoloration or obvious signs of osteomyelitis. Next 2L of gentamicin irrigation was used to flush the wound. The wound was reexplored and no further signs of infection noted. Bleeding controlled. Vessels ligated with electrocautery. There was some but mild blood loss. Vicryl used to close subcut over the metatarsal head. Prolene was used to close skin in an interrupted simple suture fashion. The wounds were cleansed. Xeroform, dry sterile dressing was then applied to the foot. The patient was awoken from anesthesia and transferred to recovery with vital signs stable and neurovascular status intact. Discharge/Plan: Transfer back to floor. Patient is to maintain dressing clean dry and intact. Partial weight bearing to the right lower extremity with postop surgical shoe (or short fracture boot). [place]
--- NOTE | 2023-06-08 13:16 | P.PNANES_ITS ---
[facility] Anesthesia Record Part I Anesthesia Record I Intake, IV Amount: 700 Hydration: Adequate Estimated blood loss (mL): 10 Urine output (mL): 0 Blood Pressure: 87/50 SaO2: 94 Pulse Rate: 98 Airway Patency: Patent Respiratory Rate: 22 Temperature: 97.2 F Patient is:: Awake Stable to PACU at:: 13:10
--- NOTE | 2023-06-08 14:02 | EXP.ACUTE.PN ---
Subjective *Date: 06/08/23 *Time: 14:02 Interval history: Patient stable this morning. Afebrile. Having more purulent drainage from toe. Denies any shortness of breath or chest pain. No nausea or vomiting. N.p.o. pending podiatry eval for possible amputation Medical Exam Vital signs and Labs for Last 24 Hours: Vital Signs Temp Pulse Pulse Resp BP BP Pulse Ox 06/08/23 13:40 81 18 130/72 98 06/08/23 13:30 83 16 132/70 96 06/08/23 13:20 83 17 120/69 98 06/08/23 13:10 97.2 F L 81 16 106/82 L 96 06/08/23 11:18 06/08/23 11:00 06/08/23 09:00 06/08/23 08:00 06/08/23 08:00 98.2 F 84 16 114/63 98 06/08/23 04:00 98.3 F 78 16 140/79 97 06/08/23 05:00 06/08/23 03:00 06/08/23 01:00 06/07/23 23:00 06/07/23 21:00 06/07/23 20:00 98.4 F 100 H 18 135/84 98 06/07/23 20:00 06/07/23 18:33 06/07/23 17:00 06/07/23 15:33 98.3 F 102 H 17 140/76 97 06/07/23 15:00 06/08/23 13:17 97.2 F L 98 H 22 87/50 L O2 Del Method 06/08/23 13:40 Room Air 06/08/23 13:30 Room Air 06/08/23 13:20 Room Air 06/08/23 13:10 Room Air 06/08/23 11:18 Room Air 06/08/23 11:00 Room Air 06/08/23 09:00 Room Air 06/08/23 08:00 Room Air 06/08/23 08:00 Room Air 06/08/23 04:00 Room Air 06/08/23 05:00 Room Air 06/08/23 03:00 Room Air 06/08/23 01:00 Room Air 06/07/23 23:00 Room Air 06/07/23 21:00 Room Air 06/07/23 20:00 Room Air 06/07/23 20:00 Room Air 06/07/23 18:33 Room Air 06/07/23 17:00 Room Air 06/07/23 15:33 Room Air 06/07/23 15:00 Room Air 06/08/23 13:17 Intake and Output 06/07/23 06/08/23 06/08/23 23:59 07:59 15:59 Intake Total 1310 / 3150 350 / 1050 700 / 1050 Output Total 0 / 0 Balance 1310 / 3150 350 / 1050 700 / 1050 Intake: Intake, Oral Amount 600 / 1740 Intake, Total IV Amount 710 / 1410 350 / 1050 700 / 1050 Vancomycin/Water For Inj (Peg) 710 / 1410 350 / 350 1.75 gm In 350 ml @ 175 mls/hr IV Q8H [facility] Rx#:[id number] Output: Output, Urine Amount 0 / 0 Other: Number of Voids 1 Number of Unmeasured Voids 1 Weight 94.755 kg Patient Weight 06/08/23 23:59 Weight 94.755 kg Laboratory Results - last 24 hr 06/07/23 16:18: POC Glucose 300 H 06/07/23 16:32: WBC 13.1 H D, RBC 5.23, Hgb 15.6, Hct 45.8, MCV 87.6, MCH 29.8, MCHC 34.0, RDW 13.1, Plt Count 247 D, MPV 8.8, Neut % (Auto) 76.1, Lymph % (Auto) 17.0, [place] % (Auto) 4.3, Eos % (Auto) 2.3, Baso % (Auto) 0.4, Neut # (Auto) 10.0 H, Lymph # (Auto) 2.2, [place] # (Auto) 0.6, Eos # (Auto) 0.3, Baso # (Auto) 0.1, Total Counted 100, Neutrophils % (Manual) 72, Lymphocytes % (Manual) 25, Monocytes % (Manual) 2, Eosinophils % (Manual) 1, Platelet Estimate Normal, RBC Morphology Normal 06/07/23 21:02: POC Glucose 263 H 06/07/23 21:15: Vancomycin Trough 19.0 H 06/08/23 05:11: POC Glucose 167 H 06/08/23 07:14: WBC 11.4 H, RBC 4.98, Hgb 14.8, Hct 42.8, MCV 85.8, MCH 29.7, MCHC 34.6, RDW 13.3, Plt Count 213, MPV 8.6, Neut % (Auto) 67.7, Lymph % (Auto) 23.4, [place] % (Auto) 5.3, Eos % (Auto) 3.2, Baso % (Auto) 0.4, Neut # (Auto) 7.7, Lymph # (Auto) 2.7, [place] # (Auto) 0.6, Eos # (Auto) 0.4, Baso # (Auto) 0.0, Total Counted 100, Neutrophils % (Manual) 64, Lymphocytes % (Manual) 25, Monocytes % (Manual) 8, Eosinophils % (Manual) 3, Platelet Estimate Normal, RBC Morphology Normal, ESR 70 H, Sodium 133 L, Potassium 3.6, Chloride 103, Carbon Dioxide 20 L, Anion Gap 13.6, BUN 10, Creatinine 0.70, Estimated Creat Clear 180, Estimated GFR 123, Est GFR ( Amer) 148, Glucose 143 H D, Calcium 8.6, C-Reactive Protein 37.7 H D 06/08/23 11:37: POC Glucose 101 I & O for Labs for Last 24 Hours: Intake & Output 06/05/23 06/06/23 06/07/23 06/08/23 23:59 23:59 23:59 23:59 Intake Total 2426 / 2426 1920 / 2630 2800 / 3150 1050 / 1050 Output Total 900 / 900 450 / 450 0 / 0 Balance 1526 /
--- NOTE | 2023-06-08 15:07 | EXP.PHA.CONS ---
Pharmacy Consult Date: 06/08/23 Time: 15:07 Referring provider: DR. MCMAHON Reason for Consult:: VANCOMYCIN LEVEL Allergies Allergy/AdvReac Type Severity Reaction Status Date / Time Penicillins [PENICILLINS] Allergy Unknown Verified 06/04/23 15:14 Iodinated Contrast Media AdvReac Nausea Verified 06/04/23 15:14 Home Medications Medication Instructions Recorded Confirmed Type metformin 500 mg tablet,extended 1,000 mg PO BID Diabetes 04/06/20 06/05/23 History release 24 hr atorvastatin 40 mg tablet 40 mg PO DAILY Cholesterol 12/26/22 06/05/23 History insulin aspar prot-insulin aspart 0 unit SQ DIRECTED Diabetes 12/26/22 06/05/23 History 100 unit/mL (70-30) subcutaneous pen (Novolog Mix 70-30FlexPen U-100) lisinopril 20 mg tablet 20 mg PO DAILY High blood pressure 12/26/22 06/05/23 History omeprazole 20 mg capsule,delayed 20 mg PO DAILY Acid Reflux 12/26/22 06/05/23 History release semaglutide 0.25 mg or 0.5 mg (2 0.5 mg SQ WEEKLY Diabetes 06/04/23 06/05/23 History mg/3 mL) subcutaneous pen injector (Ozempic) New Prescriptions to Start Prescriptions: Height: 1.73 m Weight: 94.755 kg Laboratory Results:: Laboratory Results - last 24 hr 06/07/23 16:18: POC Glucose 300 H 06/07/23 16:32: WBC 13.1 H D, RBC 5.23, Hgb 15.6, Hct 45.8, MCV 87.6, MCH 29.8, MCHC 34.0, RDW 13.1, Plt Count 247 D, MPV 8.8, Neut % (Auto) 76.1, Lymph % (Auto) 17.0, [place] % (Auto) 4.3, Eos % (Auto) 2.3, Baso % (Auto) 0.4, Neut # (Auto) 10.0 H, Lymph # (Auto) 2.2, [place] # (Auto) 0.6, Eos # (Auto) 0.3, Baso # (Auto) 0.1, Total Counted 100, Neutrophils % (Manual) 72, Lymphocytes % (Manual) 25, Monocytes % (Manual) 2, Eosinophils % (Manual) 1, Platelet Estimate Normal, RBC Morphology Normal 06/07/23 21:02: POC Glucose 263 H 06/07/23 21:15: Vancomycin Trough 19.0 H 06/08/23 05:11: POC Glucose 167 H 06/08/23 07:14: WBC 11.4 H, RBC 4.98, Hgb 14.8, Hct 42.8, MCV 85.8, MCH 29.7, MCHC 34.6, RDW 13.3, Plt Count 213, MPV 8.6, Neut % (Auto) 67.7, Lymph % (Auto) 23.4, [place] % (Auto) 5.3, Eos % (Auto) 3.2, Baso % (Auto) 0.4, Neut # (Auto) 7.7, Lymph # (Auto) 2.7, [place] # (Auto) 0.6, Eos # (Auto) 0.4, Baso # (Auto) 0.0, Total Counted 100, Neutrophils % (Manual) 64, Lymphocytes % (Manual) 25, Monocytes % (Manual) 8, Eosinophils % (Manual) 3, Platelet Estimate Normal, RBC Morphology Normal, ESR 70 H, Sodium 133 L, Potassium 3.6, Chloride 103, Carbon Dioxide 20 L, Anion Gap 13.6, BUN 10, Creatinine 0.70, Estimated Creat Clear 180, Estimated GFR 123, Est GFR ( Amer) 148, Glucose 143 H D, Calcium 8.6, C-Reactive Protein 37.7 H D 06/08/23 11:37: POC Glucose 101 Medical History: Medical History (Updated 06/08/23 @ 08:29 by Cheryl Scott DPM) Diabetes mellitus, type 2 Hyperlipidemia Hypertension Assessment and Plan Assessment and plan all Dx Assessment and Plan for all problems:: PATIENT'S VANCOMYCIN TROUGH LEVEL OVERNIGHT WAS 19.0 MCG/ML. RECOMMENDED CHANGING DOSE TO VANCOMYCIN 1500 MG Q8H TO START AT 1700 TODAY.
--- NOTE | 2023-06-08 16:15 | PC.NURSE ---
Pt is post surgical amputation of second digit on (R) foot. DSG is C/D/I. RLE is elevated on pillow. Ice pack applied. Pt denies any pain at this time. Has tolerated diet. VSS. Famiat bedside. Call light within reach.
[2023-06-08 17:04] LABS: POC Glucose,Bedside 268 (70-110)
[2023-06-08 19:54] LABS: POC Glucose,Bedside 289 (70-110)
[2023-06-09] VITALS: BP 101/56; PULSE 92; RESP 16; TEMP 36.7; O2SAT 94
[2023-06-09 04:00] VITALS: BP 93/52; PULSE 84; RESP 16; TEMP 36.4; O2SAT 95; BMI 32.1
--- NOTE | 2023-06-09 05:23 | PC.NURSE ---
Patient has slept well thus far in shift. Patient c/o of pain in right foot x1 and medicated per MAR with relief. Dressing to Right foot is C/D/I, patient kept foot elevated during the night. Call light within reach.
[2023-06-09 05:45] LABS: POC Glucose,Bedside 270 (70-110)
[2023-06-09 07:15] LABS: Basophils # 0.1 K/mm3 (0-0.2); Basophils % 0.5 % (0.1-2.0); Eosinophils # 0.3 K/mm3 (0.0-0.4); Eosinophils % 2.7 % (0.1-12.0); Hematocrit 40.3 % (42.0-52.0); Hemoglobin 13.8 g/dL (14.1-18.0); Lymphocytes # 2.6 K/mm3 (0.7-4.5); Lymphocytes % 26.6 % (10-50); Mean Corpuscular HGB Conc 34.2 g/dL (31.8-35.4); Mean Corpuscular Hemoglobin 30.3 pg (27.0-31.2); Mean Corpuscular Volume 88.5 fl (80-94); Monocytes # 0.7 K/mm3 (0.1-1.0); Monocytes % 6.8 % (1.7-9.3); Neutrophils # 6.2 K/mm3 (1.8-7.8); Neutrophils % 63.5 % (37.0-80.0); Platelet Count 208 K/mm3 (142-424); Red Blood Count 4.55 M/mm3 (4.60-6.20); Red Cell Distribution Width 13.2 % (11.5-17.5); White Blood Count 9.8 K/mm3 (4.8-10.8)
[2023-06-09 07:23] LABS: Alanine Aminotransferase 39 U/L (12-78); Albumin Level 3.3 g/dl (3.5-5.0); Alkaline Phosphatase 122 U/L (38-126); Aspartate Amino Transferase 39 U/L (17-59); Bilirubin,Total 0.3 mg/dl (0.2-1.3); Blood Urea Nitrogen 14 mg/dl (9-20); Calcium 7.9 mg/dl (8.4-10.2); Carbon Dioxide 22 mmol/L (22.0-30.0); Chloride 103 mmol/L (98-107); Creatinine Clearance Estimated 160 mL/min (50-200); Estimated Glomerular Filt Rate 105 ml/min (>60); GFR (African American) 127 ML/MIN (>60); Globulin 3.4 g/dL (1.3-3.2); Glucose 265 mg/dl (74-100); Sodium 134 mmol/L (136-145); Total Protein,Serum 6.7 g/dl (6.3-8.2)
[2023-06-09 07:28] LABS: C-Reactive Protein 28.5 mg/L (0-4)
[2023-06-09 08:00] VITALS: BP 120/71; PULSE 96; RESP 16; TEMP 36.4; O2SAT 98
--- NOTE | 2023-06-09 08:29 | EXP.ORTH.PN ---
Subjective *Date: 06/09/23 *Time: 08:47 Interval history: Patient resting comfortably in bed with foot elevated. Reports minimal pain. Patient underwent right second toe amputation yesterday. Family at bedside and given postop dressing change instructions. Ortho Exam (Inpt) Vital signs and Labs for Last 24 Hours: Temp Pulse Resp BP Pulse Ox O2 Del Method O2 Flow Rate 97.5 F L 96 H 16 120/71 98 Room Air 2 06/09/23 08:00 06/09/23 08:00 06/09/23 08:00 06/09/23 08:00 06/09/23 08:00 06/09/23 08:00 06/05/23 05:00 Laboratory Results - last 24 hr 06/08/23 07:14: Total Counted 100, Neutrophils % (Manual) 64, Lymphocytes % (Manual) 25, Monocytes % (Manual) 8, Eosinophils % (Manual) 3, Platelet Estimate Normal, RBC Morphology Normal, ESR 70 H 06/08/23 11:37: POC Glucose 101 06/08/23 16:27: POC Glucose 268 H 06/08/23 19:44: POC Glucose 289 H 06/09/23 05:38: POC Glucose 270 H 06/09/23 05:54: WBC 9.8, RBC 4.55 L, Hgb 13.8 L, Hct 40.3 L, MCV 88.5, MCH 30.3, MCHC 34.2, RDW 13.2, Plt Count 208, MPV 9.0, Neut % (Auto) 63.5, Lymph % (Auto) 26.6, Ellis % (Auto) 6.8, Eos % (Auto) 2.7, Baso % (Auto) 0.5, Neut # (Auto) 6.2, Lymph # (Auto) 2.6, Ellis # (Auto) 0.7, Eos # (Auto) 0.3, Baso # (Auto) 0.1, Sodium 134 L, Potassium 4.0, Chloride 103, Carbon Dioxide 22, Anion Gap 13.0, BUN 14 D, Creatinine 0.80, Estimated Creat Clear 160, Estimated GFR 105, Est GFR ( Amer) 127, Glucose 265 H D, Calcium 7.9 L, Total Bilirubin 0.3, AST 39, ALT 39, Alkaline Phosphatase 122, C-Reactive Protein 28.5 H, Total Protein 6.7, Albumin 3.3 L, Globulin 3.4 H, Albumin/Globulin Ratio 1.0 L I & O for Labs for Last 24 Hours: Intake & Output 06/06/23 06/07/23 06/08/23 06/09/23 11:59 11:59 11:59 11:59 Intake Total 2226 / 2226 2300 / 2300 2200 / 2200 1860 / 1860 Output Total 600 / 600 450 / 450 0 / 0 900 / 900 Balance 1626 / 1626 1850 / 1850 2200 / 2200 960 / 960 Weight 210 lb 14.4 oz 209 lb 9.6 oz 208 lb 14.4 oz 211 lb 12.8 oz Microbiology Reports for the Last 24 Hours: Microbiology 06/04/23 11:56 Blood Blood Culture - Preliminary 06/04/23 11:55 Blood Blood Culture - Preliminary Constitutional: Present no acute distress and obese Head: Present normocephalic Neck: Present normal inspection Respiratory: Present able to speak in complete sentences Cardiac: Present posterior tibial pulses present and pedal pulses present GI: Present soft Extremities: Present normal inspection Skin: Present intact Neuro: Present Motor Function Intact, oriented x 3 and moves all extremities Ankle: bilateral: normal inspection Feet/Toes: right: amputation (s/p R 2nd toe amp), right: swelling and right: tenderness Comments:: Right second toe amputation site has sutures clean dry and intact. No purulence or malodor. No drainage from the incision site. No ascending cellulitis. Swelling but noted to be improved. Assessment and Plan *Assessment and plan (1) Chronic osteomyelitis of toe of right foot: Status: Acute Category: Medical Code(s): M86.671 - Other chronic osteomyelitis, right ankle and foot (2) Type 2 diabetes mellitus with hyperglycemia, with long-term current use of insulin: Status: Chronic Category: Medical Code(s): E11.65 - Type 2 diabetes mellitus with hyperglycemia; Z79.4 - FPC (current) use of insulin (3) Cellulitis of right foot: Status: Acute Category: Medical Code(s): L03.115 - Cellulitis of right lower limb (4) Diabetic foot ulcer: Status: Acute Qualifiers: Diabetes mellitus type: type 2 Diabetic foot ulcer location: toe Laterality: right Non-pressure ulcer stage: limited to breakdown of skin Qualified Code(s): E11.621 - Type 2 diabetes mellitus with foot ulcer; L97.511 - Non-pressure chronic ulcer of other part of right foot limited to breakdown of skin Category: Medical Code(s): E11.621 - Type 2 diabetes mellitus with foot ulcer; L
[2023-06-09 09:28] LABS: Erythrocyte Sedimentation Rate 86 mm/hr (0-15)
[2023-06-09 11:16] LABS: POC Glucose,Bedside 215 (70-110)
[2023-06-09 11:30] VITALS: BP 126/61; PULSE 92; RESP 17; TEMP 36.4; O2SAT 97
--- NOTE | 2023-06-09 14:33 | PC.NURSE ---
Called Dr. Bustos about new insulin orders. Per the patient, Dr. Gale informed him he would go home with different insulin orders since he came in for DKA.
--- NOTE | 2023-06-11 13:45 | CARE MANAGER ---
Contacted patient related to hospital discharge. He states he is sore, but ok. He did get his medications and is aware of follow up appointments. Denies any questions or concerns. ALVA Shultz
--- NOTE | 2023-06-22 19:31 | EXP.DC.SUM ---
General Admission date:: 06/04/23 Discharge date: 06/09/23 HPI HPI HPI: Mr. Orellana is a 43-year-old male with poorly controlled diabetes, hyperlipidemia, class I obesity and prolonged infection in his right foot. Presented to the ER today due to pain, swelling, redness in his right foot. He has been battling an infection off and on over the past year in his right second toe. Noted draining this morning when walking at home. Had some pain in the dorsum of his foot. Came to the ER for further evaluation. Recently completed a 10-day course of antibiotics 2 weeks ago. Was doing okay until yesterday when he noted swelling overnight and pain. States that the swelling began a year ago while playing baseball with his son. He was running in a pair of crocs and jammed the end of his toe. Had subsequent swelling with the toe turning purple. Has been problematic ever since. Hole in his toe has been present for the better part of the past year. Denies any fever or chills, no chest pain, shortness of breath, abdominal pain. Has had some nausea with decreased p.o. intake lately however. Also states blood sugar has been running high. On evaluation in the ER, patient found to have anion gap, elevated glucose, leukocytosis, tachycardia. Meeting criteria for sepsis and DKA. X-ray showed no subcutaneous gas or over destruction of bone. Initiated on broad-spectrum antibiotics and medicine was consulted for admission. On arrival to the floor, patient is stable on room air. Alert and oriented x 4. Complaining of some pain in his foot but otherwise feels okay. Remains tachycardic. Podiatry consult: Reviewed HPI as above. Patient reports right second toe infection for over a year. He has been under the care of his PCP. Has failed multiple rounds of oral antibiotics. Reports last A1c 9.9 was over 14. He had been seeing endocrinology but has not been recently. 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 No history of distal extremity vascular disease. Palpable pulses. Determined ABIs not necessary at this time. X-ray and CT confirm bony erosive changes to the toe. Patient seen and evaluated at the bedside, Anna present. All questions answered. Plan for surgery today. Hospital Course Hospital Course Hospital Course: Mr. Orellana is a 43-year-old male with diabetes who presents with cellulitis, DKA, sepsis. Discussed case with the ER physician, request admission for IV antibiotics, treatment of DKA, and further eval of infected toe. Medicine agreed to admit for further management. Pain improving. Toe draining. Podiatry evaluating today. Decision made to go to surgery for amputation. Problems addressed as follows: Osteomyelitis of right second toe distal phalange, suspected gangrene Sepsis, resolved Cellulitis of right foot Diabetic wound to toe s/p Treatment DC on Abx f/u with podiatry Uncontrolled diabetes - stable at dc DKA, resolved Hyperlipidemia: Continue home Lipitor 40 mg daily Hypertension: Continue home lisinopril 20 mg daily GERD: Continue home omeprazole 20 mg daily Class I obesity complicates all aspects of his care Full code Diabetic diet Exam Data for Last 24 hours Vital signs and Labs for Last 24 Hours: Temp Pulse Resp BP Pulse Ox O2 Del Method O2 Flow Rate 97.6 F 92 H 17 126/61 97 Room Air 2 06/09/23 11:30 06/09/23 11:30 06/09/23 11:30 06/09/23 11:30 06/09/23 11:30 06/09/23 13:00 06/05/23 05:00 Constitutional Comments: Constitutional: Present no acute distress and obese Head: Present atraumatic ENT: Present normal exam Neck: Present normal inspection Respiratory: Present normal respiratory effort; Absent rhonchi, wheezes or crackles Cardiac: Present Reg Rate and Rhythm GI: Present soft and normal bowel sounds; Absent distention or tenderness Extremities: Present full ROM and tenderness (Of right dorsum of foot and ankle) Comment:: Pain in leg resolved, no erythema in leg. Erythem
== END 2023-06-09 15:18 | disposition home or self-care (01) | DRG 853 ==
LOC: ER 13:57 → 2ND 14:29
PROVIDERS: Podiatrist; Admitting Provider Internal Medicine Adolescent Medicine; Emergency Provider Emergency Medicine; PCP Nurse Practitioner; Visit Provider Internal Medicine Adolescent Medicine
PROC: 0Y6R0Z1 Detachment at Right 2nd Toe, High, Open Approach (ICD-10-PCS; principal; 2023-06-08 12:00)
DX: A41.9 Sepsis, unspecified organism (principal); E11.10 Type 2 diabetes mellitus with ketoacidosis without coma; L03.115 Cellulitis of right lower limb; M86.171 Other acute osteomyelitis, right ankle and foot; E11.65 Type 2 diabetes mellitus with hyperglycemia; Z79.4 Long term (current) use of insulin; E11.621 Type 2 diabetes mellitus with foot ulcer; L97.511 Non-pressure chronic ulcer of other part of right foot limited to breakdown of skin; E78.5 Hyperlipidemia, unspecified; I10 Essential (primary) hypertension; K21.9 Gastro-esophageal reflux disease without esophagitis; E66.9 Obesity, unspecified; Z68.32 Body mass index [BMI] 32.0-32.9, adult
CPT/HCPCS: 28160; 36415; 73630; 73700; 80048; 80053; 80202; 82009; 82803; 82962; 83036; 83605; 83735; 84145; 85007; 85014; 85018; 85025; 85048; 85049; 85651; 86140; 87040; 87070; 87205; 88304; 88305; 88311; 93005; 99291; J1956; J3370

== ENCOUNTER 2023-07-12 15:46 | Emergency (ER) | payer OTHER, SELFPAY ==
[2023-07-12 16:10] VITALS: BP 122/83; PULSE 111; RESP 18; TEMP 37.2; O2SAT 97; BMI 31.0
--- NOTE | 2023-07-12 16:25 | EXP.UTC ---
Discharge Plan Disposition Patient Disposition: Home, Self-Care Condition: Good Prescriptions Prescriptions: New cephalexin 500 mg capsule 500 mg PO QID Qty: 40 0RF No Action metformin 500 MG tablet extended release 24 hr 1,000 mg PO BID atorvastatin 40 mg tablet 40 mg PO DAILY Patient Comments: Take 1 tablet every day by oral route. lisinopril 20 mg tablet 20 mg PO DAILY Patient Comments: Take 1 tablet every day by oral route. omeprazole 20 mg capsule,delayed release(DR/EC) 20 mg PO DAILY Patient Comments: Take 1 capsule every day by oral route. Ozempic 0.25 mg or 0.5 mg (2 mg/3 mL) pen injector 0.5 mg SQ WEEKLY Jardiance 10 mg Tablet 20 mg PO DAILY Qty: 30 0RF insulin glargine [Lantus Solostar U-100 Insulin] 100 unit/mL (3 mL) Insulin Pen 60 unit SQ HS 30 Days Qty: 10 0RF Referrals Follow up/Referrals: Trish Yeager PA [Primary Care Provider] - See instructions Activity Restrictions/Add. Instructions Additional Instructions/Restrictions: Drink plenty of fluids. Take tylenol or ibuprofen for pain or fever. Take the medications as directed. Follow up with your regular doctor. GO TO THE ER FOR ANY WORSENING SYMPTOMS Apply warm wet compresses to the affected site on your left jaw. Clinical Impressions Clinical Impression: Parotitis, Abscess, dental Instructions Patient Instructions: Parotitis, DI for Parotitis-Adult Discharge ED Provider: Fabian Busby [facility] [place] [facility] [place] General Stated complaint: swollen, knot on lt jaw, body aches Time Seen by Provider: 07/12/23 16:25 History of Present Illness Provider Complaint: He states that he has swelling and tenderness of his left jaw area and the area in the corner of his jaw. He has several bad teeth that could be causing this. He denies fever, but he has felt bad and had chills. Related Data Home Medications Medication Instructions Recorded Confirmed metformin 500 mg tablet,extended 1,000 mg PO BID Diabetes 04/06/20 07/12/23 release 24 hr atorvastatin 40 mg tablet 40 mg PO DAILY Cholesterol 12/26/22 07/12/23 lisinopril 20 mg tablet 20 mg PO DAILY High blood pressure 12/26/22 07/12/23 omeprazole 20 mg capsule,delayed 20 mg PO DAILY Acid Reflux 12/26/22 07/12/23 release semaglutide 0.25 mg or 0.5 mg (2 0.5 mg SQ WEEKLY Diabetes 06/04/23 07/12/23 mg/3 mL) subcutaneous pen injector (Ozempic) Previous Rx's Medication Instructions Recorded empagliflozin 10 mg tablet 20 mg PO DAILY #30 tabs 06/09/23 (Jardiance) insulin glargine 100 unit/mL (3 60 unit (0.6 mL) SQ HS 30 days #10 06/09/23 mL) subcutaneous pen (Lantus mL Solostar U-100 Insulin) cephalexin 500 mg capsule 500 mg PO QID #40 caps 07/12/23 Allergies Allergy/AdvReac Type Severity Reaction Status Date / Time Penicillins [PENICILLINS] Allergy Unknown Verified 07/12/23 16:31 Iodinated Contrast Media AdvReac Nausea Verified 07/12/23 16:31 [facility] Disclaimer: The information contained in this section may have been updated after the patient was seen, as this information can be updated by other users. Medical History Abscess of skin or subcutaneous tissue Acute pancreatitis Cellulitis Cellulitis of left foot Cellulitis of right foot Chronic osteomyelitis of toe of right foot Class 1 obesity Cutaneous abscess of face Cutaneous abscess of neck Diabetes mellitus Diabetes mellitus, type 2 Diabetic foot ulcer DKA (diabetic ketoacidosis) Facial cellulitis High triglycerides History of pulmonary embolism Hyperglycemia Hyperlipidemia Hypertension Nasal abscess Osteomyelitis Peptic reflux disease Pilonidal abscess Rib fracture Sepsis Type 2 diabetes mellitus with hyperglycemia, with long-term current use of insulin Upper respiratory infection Surgical History H/O lateral meniscus repair of left knee History of amputation of lesser toe of right foot History of tonsillectomy Family History Other No significant family history Social History Smoking Status: Never smoker alcohol intake: never substance use type: denies use current occupational status: employed Travel in the last 8 weeks: None household members: significant other housing: house caffeine: Yes ROS Obtained: Yes All systems reviewed & no additional complaints except as documented Constitutional Constitutional: Denies chills and Denies fever(s) Eyes Eyes: Denies eye discharge ENT Ears, Nose, Mouth, and Throat: Reports as per HPI, Reports dental pain, Denies disequilibrium, Denies dizziness, Denies otalgia, Reports sore throat and Denies throat swelling Cardiovascular Cardiovascular: Denies chest pain Respiratory Respiratory: Denies shortness of breath, Denies chest congestion, Denies cough, Denies stridor and Denies wheezing Gastrointestinal Gastrointestingal: Denies nausea or vomiting Musculoskeletal Musculoskeletal: Reports system reviewed and no additional complaints, except as documented and Denies arthralgias Integumentary/Breasts Skin/Breast: Denies rash Neurologic Neurologic: Denies disequilibrium, Denies dizziness and Denies paresthesias Allergic/Immunologic Allergic/Immunologic: Denies throat swelling and Denies wheezing Physical Exam General General appearance: alert and in no apparent distress Head Head exam: atraumatic, normocephalic and normal inspection Eye Eye exam: Present normal appearance, PERRL and EOMI ENT ENT exam: Present mucous membranes moist, TM's normal bilaterally and normal external ear exam Expanded ENT Exam External ear exam: Present normal external inspection Nose exam: Absent sinus tenderness Nasal speculum exam: Bilateral: normal Mouth exam: Present normal external inspection; Absent drooling Teeth exam: Present dental caries, fractured tooth #, dental tenderness # and gingival swelling Throat exam: Present tonsillar erythema Neck Neck exam: Present full ROM, trachea midline, tenderness and lymphadenopathy; Absent meningismus Chest Chest inspection: Present normal inspection and symmetric chest wall rise; Absent tenderness Respiratory Respiratory exam: Present normal lung sounds bilaterally; Absent respiratory distress Cardiovascular Cardiovascular exam: Present regular rate and normal rhythm; Absent JVD Abdominal Exam Abdominal exam: Present soft and normal bowel sounds; Absent distention, tenderness or guarding Extremities Exam Extremities exam: Present normal inspection, full ROM and normal capillary refill; Absent calf tenderness Back Exam Back exam: Present normal inspection; Absent tenderness Neurological Exam Neurological exam: Present alert and oriented X3 Psychiatric Psychiatric exam: Present normal affect and normal mood Skin Skin exam: Present warm, dry, intact and normal color Lymphatic Lymphatic Findings: no adenopathy Medical Decision Making Medical Records Medical records reviewed: No I reviewed the patient's medical records. [place] Inquiry Pt receiving controlled substance: No Lab Data Lab results reviewed: Yes I reviewed the patient's lab results.
[2023-07-12 16:37] LABS: UTC Influenza A Antigen Negative (Negative)
[2023-07-12 16:38] LABS: UTC Influenza B Antigen Negative (Negative)
[2023-07-12 16:58] LABS: UTC Strep Screen (Rapid) Negative (Negative)
[2023-07-12 17:24] VITALS: BP 122/83; PULSE 111; RESP 18; TEMP 37.2; O2SAT 97
== END 2023-07-12 17:24 | disposition home or self-care (01) ==
PROVIDERS: Emergency Provider Nurse Practitioner Family; PCP Physician Assistant
DX: K04.7 Periapical abscess without sinus (principal); K11.20 Sialoadenitis, unspecified
CPT/HCPCS: 87804; 87880; 99212; 99214; G0463

== ENCOUNTER 2023-07-13 16:24 | Emergency (ER) | payer BC, SELFPAY ==
[2023-07-13 16:25] VITALS: BP 138/86; PULSE 108; RESP 18; TEMP 36.7; O2SAT 99; BMI 31.0
--- NOTE | 2023-07-13 17:19 | CT_ITS ---
PROCEDURE INFORMATION: Exam: CT Neck With Contrast Exam date and time: 07/13/2023 6:24 PM Age: 43 years old Clinical indication: Other: Swelling; Additional info: L facial swell/l posterior neck, difficult rom TECHNIQUE: Imaging protocol: Computed tomography of the neck with contrast. Radiation optimization: All CT scans at this facility use at least one of these dose optimization techniques: automated exposure control; mA and/or kV adjustment per patient size (includes targeted exams where dose is matched to clinical indication); or iterative reconstruction. Contrast material: ISOVUE; Contrast volume: 75 ml; Contrast route: IV; REPORTING DATA: Count of CT and Cardiac NM exams in prior 12 months: This patient has received 2 known CTs and 0 known cardiac nuclear medicine studies in the 12 months prior to the current study. COMPARISON: CT SOFT TISSUE NECK W CON 11/24/2020 12:42 PM FINDINGS: Paranasal sinuses: Mucosal thickening with the small fluid level left maxillary sinus, new. 2 cm polyp or retention cyst right maxillary sinus unchanged Pharynx: Unremarkable. No significant tonsillar enlargement. Larynx: Unremarkable. Epiglottis is normal. Prevertebral and retropharyngeal spaces: Unremarkable. Salivary glands: Moderate generalized enlargement of the parotid gland more pronounced on the left that has progressed from previous exam with mild Sravani for parotid swelling superficial to the left parotid gland suspicious for sialoadenitis. There is no discrete mass identified. No calculi or duct dilatation appreciated. Thyroid: Normal. No enlarged or calcified nodules. Lymph nodes: Unremarkable. No lymphadenopathy. Trachea: Visualized trachea is unremarkable. Lungs: Interval development of indistinct 6 mm nodular density right upper lobe, nonspecific. Smaller subpleural nodule right upper lobe unchanged. Bones/joints: Unremarkable. No acute fracture. Soft tissues: Unremarkable. No significant soft tissue swelling. IMPRESSION: 1. Generalized enlargement with mild inflammatory changes left parotid gland suspicious for sinal adenitis. Please correlate clinically. 2. Mild maxillary sinusitis with stable polyp right maxillary sinus. 3. Interval development of indistinct 6 mm pulmonary nodule right upper lobe, nonspecific. Recommend repeat CT chest in 6 months for continued surveillance.
--- NOTE | 2023-07-13 17:19 | CT_ITS ---
PROCEDURE INFORMATION: Exam: CT Maxillofacial With Contrast Exam date and time: 07/13/2023 6:11 PM Age: 43 years old Clinical indication: Mass, lump, or swelling; Other: Facial; Additional info: L facial swelling TECHNIQUE: Imaging protocol: Computed tomography of the face with contrast. Radiation optimization: All CT scans at this facility use at least one of these dose optimization techniques: automated exposure control; mA and/or kV adjustment per patient size (includes targeted exams where dose is matched to clinical indication); or iterative reconstruction. Contrast material: ISOVUE; Contrast volume: 100 ml; Contrast route: IV; REPORTING DATA: Count of CT and Cardiac NM exams in prior 12 months: This patient has received 2 known CTs and 0 known cardiac nuclear medicine studies in the 12 months prior to the current study. COMPARISON: CT SOFT TISSUE NECK W CON 11/24/2020 12:42 PM FINDINGS: Orbital cavities: Orbits are normal. Globes are unremarkable. Bones/joints: No acute fracture. Paranasal sinuses: There is mucosal thickening with small fluid level left maxillary sinus. There is a stable polyp retention cyst right maxillary sinus. There is partial opacification of the ethmoid air cells also noted. Salivary glands: There is bilateral parotid gland larger more pronounced on the left with mild periparotid fascial thickening/fluid adjacent to the left parotid gland extending inferiorly with mild subcutaneous fat stranding and skin thickening resulting in some thickening of the platysma muscle suspicious for subtle adenitis and cellulitis. There is no abscess collection or discrete mass identified. Submandibular glands are unremarkable. Lymph nodes: Mildly enlarged left upper internal jugular chain lymph node measuring 1.8 cm slightly increased from previous exam possibly reactive in nature. Soft tissues: See Salivary glands finding. IMPRESSION: 1. Enlargement of the left parotid gland with mild inflammatory changes involving the surrounding tissues extending in inferiorly with some accompanying skin thickening likely secondary to acute sialoadenitis and cellulitis. 2. Mild paranasal sinusitis with stable retention cyst or polyp right maxillary sinus. 3. 1.8 cm enlarged lymph node left upper internal jugular chain possibly reactive in nature.
--- NOTE | 2023-07-13 17:22 | ED_ITS ---
Discharge Plan Disposition Patient Disposition: Home, Self-Care Chief Complaint: Skin/Abscess/Foreign Body Prescriptions Prescriptions: No Action metformin 500 MG tablet extended release 24 hr 1,000 mg PO BID atorvastatin 40 mg tablet 40 mg PO DAILY Patient Comments: Take 1 tablet every day by oral route. lisinopril 20 mg tablet 20 mg PO DAILY Patient Comments: Take 1 tablet every day by oral route. omeprazole 20 mg capsule,delayed release(DR/EC) 20 mg PO DAILY Patient Comments: Take 1 capsule every day by oral route. Ozempic 0.25 mg or 0.5 mg (2 mg/3 mL) pen injector 0.5 mg SQ WEEKLY Jardiance 10 mg Tablet 20 mg PO DAILY Qty: 30 0RF insulin glargine [Lantus Solostar U-100 Insulin] 100 unit/mL (3 mL) Insulin Pen 60 unit SQ HS 30 Days Qty: 10 0RF cephalexin 500 mg capsule 500 mg PO QID Qty: 40 0RF Referrals Follow up/Referrals: Molly Yeager APRN [Primary Care Provider] - See instructions Activity Restrictions/Add. Instructions Additional Instructions/Restrictions: At this time it was felt you are safe to be discharged home. If new or worsening symptoms please do not hesitate to return the emergency department. Please take antibiotics as prescribed. Please follow-up with your family doctor before the end of the week. Please use sour candies to make saliva is much as you are able. Clinical Impressions Clinical Impression: Acute sialoadenitis Discharge ED Provider: Elmer Kern General Adult HPI General Chief complaint: Skin/Abscess/Foreign Body Stated complaint: facial swelling, no accident Time Seen by Provider: 07/13/23 17:00 Mode of Arrival: Ambulatory Source of Information: Patient Limitations: No Limitations Description of Symptoms (Recalled from ER Triage Doc. by RN): PT C/O LEFT SIDED FACIAL SWELLING, EVALUATED BY [facility] PROVIDER 07/12/2023, STARED ON ABX. HAS TAKEN 3 DOSES. REPORTS PAIN AND SWELLING ARE WORSE, REPORTS FEVER. DAUGHTER CURRENTLY WITH FLU History of Present Illness HPI narrative: Patient is a 43-year-old male with past medical history of insulin-dependent diabetes who presents emergency department for evaluation of left facial swelling. Patient was evaluated in urgent care yesterday, discharged on oral antibiotics. Over the last 24 hours he has had progressive swelling causing him to present here for continued evaluation. There is associated left-sided neck pain and limited range of motion. No other acute complaints at this time. No difficulty swallowing or shortness of breath. Related Data Home Medications Medication Instructions Recorded Confirmed metformin 500 mg tablet,extended 1,000 mg PO BID Diabetes 04/06/20 07/12/23 release 24 hr atorvastatin 40 mg tablet 40 mg PO DAILY Cholesterol 12/26/22 07/12/23 lisinopril 20 mg tablet 20 mg PO DAILY High blood pressure 12/26/22 07/12/23 omeprazole 20 mg capsule,delayed 20 mg PO DAILY Acid Reflux 12/26/22 07/12/23 release semaglutide 0.25 mg or 0.5 mg (2 0.5 mg SQ WEEKLY Diabetes 06/04/23 07/12/23 mg/3 mL) subcutaneous pen injector (Ozempic) Previous Rx's Medication Instructions Recorded empagliflozin 10 mg tablet 20 mg PO DAILY #30 tabs 06/09/23 (Jardiance) insulin glargine 100 unit/mL (3 60 unit (0.6 mL) SQ HS 30 days #10 06/09/23 mL) subcutaneous pen (Lantus mL Solostar U-100 Insulin) cephalexin 500 mg capsule 500 mg PO QID #40 caps 07/12/23 Allergies Allergy/AdvReac Type Severity Reaction Status Date / Time Penicillins [PENICILLINS] Allergy Unknown Verified 07/12/23 16:31 Iodinated Contrast Media AdvReac Nausea Verified 07/12/23 16:31 PFSH PFSH Disclaimer: The information contained in this section may have been updated after the patient was seen, as this information can be updated by other users. Medical History Abscess of skin or subcutaneous tissue Acute pancreatitis Cellulitis Cellulitis of left foot Cellulitis of right foot Chronic osteomyelitis of toe of right foot Class 1 obesity Cutaneous abscess of face Cutaneous abscess of neck Diabetes mellitus Diabetes mellitus, type 2 Diabetic foot ulcer DKA (diabetic ketoacidosis) Facial cellulitis High triglycerides History of pulmonary embolism Hyperglycemia Hyperlipidemia Hypertension Nasal abscess Osteomyelitis Peptic reflux disease Pilonidal abscess Rib fracture Sepsis Type 2 diabetes mellitus with hyperglycemia, with long-term current use of insulin Upper respiratory infection Surgical History H/O lateral meniscus repair of left knee History of amputation of lesser toe of right foot History of tonsillectomy Family History Other No significant family history Social History Smoking Status: Never smoker alcohol intake: never substance use type: denies use current occupational status: employed Travel in the last 8 weeks: None household members: significant other housing: house caffeine: Yes ROS Obtained: Yes Systems reviewed as appropriate & no additional complaints except as documented Physical Exam General General appearance: alert and in no apparent distress Head Head exam: atraumatic and other (Right-sided facial swelling with mild erythema overlying the left preauricular area extending down below the angle of the mandible. No purulence expressed from Stensen's duct.) Eye Eye exam: Present PERRL and EOMI ENT ENT exam: Present mucous membranes moist and other (Numerous dental caries present, worse at the left maxillary molars. Uvula midline.) Neck Neck exam: Present normal inspection; Absent full ROM (Limited leftward range of motion secondary to pain. Extension, flexion preserved.) Chest Chest inspection: Present normal inspection and symmetric chest wall rise Respiratory Respiratory exam: Present normal lung sounds bilaterally; Absent respiratory distress Cardiovascular Cardiovascular exam: Present normal rhythm and tachycardia Abdominal Exam Abdominal exam: Present soft Extremities Exam Extremities exam: Present normal inspection Neurological Exam Neurological exam: Present alert Psychiatric Psychiatric exam: Present normal affect Skin Skin exam: Present warm and dry Medical Decision Making [place] Inquiry Pt receiving controlled substance: No Vital Signs: 07/13/23 16:25 07/13/23 19:30 Temperature 98.1 F Temperature Source Oral Pulse Rate 81 Pulse Rate [Radial] 108 H Respiratory Rate 18 Blood Pressure [Left Arm] 138/86 Blood Pressure Mean [Left Arm] 103 Blood Pressure Source [Left Arm] Automatic Cuff Blood Pressure Position [Left Arm] Sitting 02 Sat by Pulse Oximetry 99 98 Oxygen Delivery Method Room Air Room Air Lab Data Lab Results 07/13/23 17:30: WBC 8.1, RBC 5.17, Hgb 15.0, Hct 46.5, MCV 90.0, MCH 28.9, MCHC 32.2, RDW 13.3, Plt Count 193, MPV 8.2, Neut % (Auto) 73.5, Lymph % (Auto) 18.1, Isabela % (Auto) 5.9, Eos % (Auto) 2.0, Baso % (Auto) 0.6, Neut # (Auto) 6.0, Lymph # (Auto) 1.5, Isabela # (Auto) 0.5, Eos # (Auto) 0.2, Baso # (Auto) 0.1, Sodium 137, Potassium 4.1, Chloride 103, Carbon Dioxide 23, Anion Gap 15.1 H, BUN 7 L, Creatinine 0.60 L, Estimated Creat Clear 212, Estimated GFR 146, Est GFR ( Amer) 177, Glucose 222 H, Calcium 8.4, Total Bilirubin 0.7, AST 30, ALT 46, Alkaline Phosphatase 167 H, Total Protein 7.7, Albumin 4.0, Globulin 3.7 H, Albumin/Globulin Ratio 1.1 07/13/23 17:30 07/13/23 17:30 Orders (Tests/Meds): ED MEDICATIONS Discontinued Medications Generic Name Dose Route Start Last Admin Trade Name Norbertoq PRN Reason Stop Dose Admin Acetaminophen 1,000 mg 07/13/23 17:21 07/13/23 17:51 Acetaminophen 500mg Tab PO 07/13/23 17:22 1,000 mg ONCE ONE Administration Lactated Ringer's 1,000 mls @ 999 mls/hr 07/13/23 17:21 07/13/23 17:51 Lactated Ringer's 1000 Ml Bag IV 07/13/23 18:21 999 mls/hr .Q1H1M ONE Administration Iopamidol 100 ml 07/13/23 18:11 07/13/23 18:17 Iopamidol-370 (76%);100ml Bottle IV 07/13/23 18:12 100 ml ONCE ONE Administration Iopamidol 75 ml 07/13/23 18:26 07/13/23 18:27 Iopamidol-370 (76%);100ml Bottle IV 07/13/23 18:27 75 ml ONCE ONE Administration Ketorolac Tromethamine 30 mg 07/13/23 17:21 07/13/23 17:51 Ketorolac 30mg/Ml Vial IV 07/13/23 17:22 30 mg ONCE ONE Administration Ondansetron HCl 4 mg 07/13/23 17:21 07/13/23 17:51 Ondansetron 4mg/2ml Vial IV 07/13/23 17:22 4 mg ONCE ONE Administration Sodium Chloride 50 ml 07/13/23 18:11 07/13/23 18:16 0.9 % Sodium Chloride 50 Ml Vial IV 07/13/23 18:12 Not Given ONCE ONE Sodium Chloride 10 ml 07/13/23 18:11 07/13/23 18:16 Sodium Chloride 0.9% 10ml Syr (Rad Only) IV 07/13/23 18:12 10 ml ONCE ONE Administration Sodium Chloride 10 ml 07/13/23 18:26 07/13/23 18:27 Sodium Chloride 0.9% 10ml Syr (Rad Only) IV 07/13/23 18:27 10 ml ONCE ONE Administration ORDERS Category Date Time Status CT facial bones w con Stat Cat Scan 07/13/23 17:[address] soft tissue neck w con Stat Cat Scan 07/13/23 17:19 Completed CBC w/Auto Diff [Complete Blood Count Auto Diff] Stat Lab 07/13/23 17:30 Completed CMP [Comprehensive Metabolic Panel] Stat Lab 07/13/23 17:30 Completed Blood Culture Stat Micro 07/13/23 18:00 Received Medical Decision Narrative: In summary patient is a 43-year-old male with past medical history described above who presents emergency department for evaluation of left facial swelling. Patient is hemodynamically stable nontoxic-appearing upon arrival, afebrile. Differential diagnosis includes parotitis, facial cellulitis, abscess, among others. Workup will be conducted with hematologic labs, CT face and neck with IV contrast. Patient has contrast allergy however it is only nausea which will be pretreated. Initial inventions include crystalloid bolus, Toradol, Tylenol, Zofran. Workup reviewed by me, hematologic labs are nonactionable, no significant leukocytosis, no critical electrolyte abnormalities or MO, sugar is mildly elevated in the setting of insulin-dependent diabetes. Imaging shows enlargement with inflammatory changes of the parotid gland. There is also an incidental pulmonary nodule in the right upper lobe for which CT chest was recommended to be repeated in 6 months. Patient clinically has sialoadenitis and has already been prescribed antibiotics. Given that I have no concern for sepsis and patient has no deep space infection of his neck outpatient management is appropriate. Patient was instructed to use sialagogues and will follow-up with his family doctor in a few days for repeat evaluation. Patient was given return precautions. Critical Care Critical Care Time Critical Care Time: No
[2023-07-13 17:43] LABS: Basophils # 0.1 K/mm3 (0-0.2); Basophils % 0.6 % (0.1-2.0); Eosinophils # 0.2 K/mm3 (0.0-0.4); Hematocrit 46.5 % (42.0-52.0); Lymphocytes # 1.5 K/mm3 (0.7-4.5); Lymphocytes % 18.1 % (10-50); Mean Corpuscular HGB Conc 32.2 g/dL (31.8-35.4); Mean Corpuscular Hemoglobin 28.9 pg (27.0-31.2); Mean Platelet Volume 8.2 fl (7.4-10.4); Monocytes # 0.5 K/mm3 (0.1-1.0); Monocytes % 5.9 % (1.7-9.3); Neutrophils % 73.5 % (37.0-80.0); Platelet Count 193 K/mm3 (142-424); Red Blood Count 5.17 M/mm3 (4.60-6.20); Red Cell Distribution Width 13.3 % (11.5-17.5); White Blood Count 8.1 K/mm3 (4.8-10.8)
[2023-07-13 17:46] LABS: Chloride 103 mmol/L (98-107); Sodium 137 mmol/L (136-145)
[2023-07-13 17:47] LABS: Potassium 4.1 mmoL/L (3.5-5.1)
[2023-07-13 17:49] LABS: Alanine Aminotransferase 46 U/L (12-78); Albumin/Globulin Ratio 1.1 (1.1-1.8); Alkaline Phosphatase 167 U/L (38-126); Anion Gap 15.1 mEq/L (5-15); Aspartate Amino Transferase 30 U/L (17-59); Bilirubin,Total 0.7 mg/dl (0.2-1.3); Blood Urea Nitrogen 7 mg/dl (9-20); Carbon Dioxide 23 mmol/L (22.0-30.0); Creatinine Clearance Estimated 212 mL/min (50-200); Estimated Glomerular Filt Rate 146 ml/min (>60); GFR (African American) 177 ML/MIN (>60); Globulin 3.7 g/dL (1.3-3.2); Total Protein,Serum 7.7 g/dl (6.3-8.2)
[2023-07-13 17:50] LABS: Calcium 8.4 mg/dl (8.4-10.2); Glucose 222 mg/dl (74-100)
[2023-07-13] MEDS: LACTATED RINGERS 1000ML 1,000 ML 999 ML IV (17:51)
[2023-07-13] MEDS: KETOROLAC 30MG/ML VIAL 30 MG IV (17:51)
[2023-07-13] MEDS: ONDANSETRON 4MG/2ML VIAL 4 MG IV (17:51)
[2023-07-13] MEDS: ACETAMINOPHEN 500MG TAB 1000 MG PO (17:51)
--- NOTE | 2023-07-13 18:08 | PC.NURSE ---
DR GALLEGO AT BEDSIDE
[2023-07-13] MEDS: SODIUM CHLORIDE 0.9% 10ML SYR (RAD ONLY) 10 ML IV ×2 (18:16→18:27)
[2023-07-13] MEDS: IOPAMIDOL-370 (76%);100ML BOTTLE 100 ML IV (18:17)
[2023-07-13] MEDS: IOPAMIDOL-370 (76%);100ML BOTTLE 75 ML IV (18:27)
--- NOTE | 2023-07-13 19:01 | PC.NURSE ---
Rounded on pt. Drink provided. No other needs voiced and call light within reach.
[2023-07-13 19:30] VITALS: PULSE 81; O2SAT 98
[2023-07-13 20:34] VITALS: BP 131/89; PULSE 98; RESP 18; TEMP 37.2
== END 2023-07-13 20:36 | disposition home or self-care (01) ==
PROVIDERS: Emergency Provider Emergency Medicine; PCP Nurse Practitioner
DX: R22.0 Localized swelling, mass and lump, head (principal); G50.1 Atypical facial pain; M54.2 Cervicalgia; E11.9 Type 2 diabetes mellitus without complications; I10 Essential (primary) hypertension; E78.5 Hyperlipidemia, unspecified
CPT/HCPCS: 70487; 70491; 80053; 85025; 87040; 96361; 96374; 96375; 99285; J2405; Q9967

== ENCOUNTER 2023-11-30 12:44 | Outpatient (CLI) | payer BC, SELFPAY ==
[2023-11-30 14:41] LABS: Prostate Specific Ag Screen 0.3 ng/ml (0.0-4.0)
[2023-12-01 08:32] LABS: Testosterone,Total 187 ng/dL (264-916)
[2023-12-01 12:20] LABS: Sex Hormone Binding Globulin 24.2 nmol/L (16.5-55.9)
[2023-12-06 06:43] LABS: Testosterone,Free 5.6 pg/mL (6.8-21.5)
== END 2023-11-30 23:59 | disposition home or self-care (01) ==
LOC: LAB 12:46
PROVIDERS: PCP Nurse Practitioner; Visit Provider Urology
DX: R53.83 Other fatigue (principal); N52.9 Male erectile dysfunction, unspecified; Z12.5 Encounter for screening for malignant neoplasm of prostate; E29.1 Testicular hypofunction
CPT/HCPCS: 36415; 84270; 84402; 84403; G0103

== ENCOUNTER 2025-04-10 16:44 | Outpatient (CLI) | payer BC, SELFPAY ==
--- OUTSIDE RECORDS SUMMARY | 2025-04-10 16:47 | XMS_ITS | Encounter Summary ---
Author Organization [facility] Address [address] [place] [address] Care Team Providers Care Volcanologist Name Role Phone Molly Yeager STEPHAN Primary Care Provider [phone] Reason for Visit * Reason Comments Med Refill Encounter Details Date Type Department Care Team (Late st Contact Info) Description 12/15/2022 Refill [facility] [address] [place] [address] Anusha Saha APRN [address] [address] Social History Tobacco Use Types Packs/Day Years Used Date Smoking Tobacco: Never Smokeless Tobacco: Current Snuff Comments:1 can every 2 days. Alcohol Use Standard Drinks/Week Comments Not Currently 0 (1 standard drink = 0.6 oz pure alcohol) Alcoholic Drinks/day: Rarely consumes alcohol Sex and Gender Information Value Date Recorded Sex Assigned at Male 01/30/2021 3:31 PM EDT Legal Sex Male 8:17 PM EDT Gender Identity Male 01/30/2021 3:31 PM EDT Sexual Orientation Choose not to disclose 2020 3:31 PM EDT documented as of this encounter Miscellaneous Notes * Telephone Encounter - Beatriz Cabrera - 12/15/2022 10:28 AM EDT Per protocol, 1 medication(s), pen needle, has been approved for 90 day supply with 0 refill(s) to [facility] pharmacy. documented in this encounter Plan of Treatment Not on file documented as of this encounter Visit Diagnoses Not on filedocumented in this encounter Additional Health Concerns Assessment Noted Time A fall risk assessment has been complete d for the patient 03/20/2022 8:22 AM EDT documented as of this encounter Care Teams Volcanologist Relationship Specialty Start Date End Date Molly Yeager APRN [address] [place] [address] PCP - General 08/03/21 documented as of this encounter
--- OUTSIDE RECORDS SUMMARY | 2025-04-10 16:47 | XMS_ITS | Clinical Summary ---
Author Organization [facility] Address [address] [place] [address] Care Team Providers Care Computer System Technician Name Role Phone Molly Yeager APRN Primary Care Provider Allergies Active Allergy Reactions Criticality Noted Date Comments Iv Contrast Other - please document in the comment field Low 10/07/2018 Vomiting Penicillins Hives,Rash Medium 06/26/2017 Pt said he was told he broke out in a rash as a child per mother. Did not require hospitalization that he was aware of. Medications glucose blood test strip 2x/day, Please provide strips compatible with patient's meter and insurance 100 each 2 Active Continuous Blood Gluc Course Instructor (FreeStyle Amanda 2 Adrian) device Use as directed 1 each 2 Active atorvastatin (Lipitor) 40 MG tablet Take 1 tablet (40 mg total) by mouth 1 (one) time each day. 30 tablet 5 2 Active fenofibrate (Tricor) 145 MG tablet Take 1 tablet (145 mg total) by mouth 1 (one) time each day. 30 tablet 5 2 Active metFORMIN XR (Glucophage-XR ) 500 MG 24 hr tablet Take 2 tablets (1,000 mg total) by mouth 2 (two) times a day before meals. Do not crush, chew, or split. 120 tablet 5 2 Active Icosapent Ethyl (Vascepa) 1 g capsule Take 2 capsules (2 g total) by mouth 2 (two) times a day with meals. 120 capsule 5 2 Active omeprazole (PriLOSEC) [address] capsule Take 20 mg by mouth 1 (one) time each day. Do not crush or chew. Active lisinopril 20 MG tablet Take 1 tablet (20 mg total) by mouth 1 (one) time each day. 30 tablet 2 2 Active insulin aspart protamine-insu eric aspart (NovoLOG MIX 70/30 FLEXPEN) (70-30) 100 UNIT/ML injection pen Inject subcutaneous 80 units before breakfast & 80 units before evening meal with titration, max dose 180u/day 55 mL 5 2 Active Continuous Blood Gluc Sensor (FreeStyle Amanda 3 Sensor) misc 1 each See administration instructions. 2 each 2 2 Active pen needle, diabetic (B-D UF III MINI PEN NEEDLES) 31G X 5 MM misc USE TWICE DAILY DIRECTED 200 each 3 Active Active Problems Problem Noted Date Diagnosed Date Type 2 diabetes mellitus wit h diabetic neuropathy, without long-term current use of insulin 08/07/2021 Neuropathy 08/07/2021 Hyperlipidemia 08/07/2021 Hypertension 08/07/2021 Non-compliance 08/07/2021 Pancreas cyst 08/21/2020 Post-viral disorder 08/21/2020 Pulmonary embolism 08/21/2020 Anemia 08/10/2020 Hypertriglyceridemia, familial 05/17/2020 Diabetes type 2, uncontrolled 01/03/2020 Gastric varices 03/02/2019 MCCLOUD (nonalcoholic steatohepatitis) 01/20/2019 Portal hypertension 01/20/2019 Chronic pancreatitis 10/07/2018 Elevated liver enzymes 10/07/2018 Obesity 10/07/2018 Immunizations Immunization Administration Dates Next Due Hep A / Hep B 01/20/2019 Hep B, adult 05/05/2019 Family History Medical History Relation Name Comments Cardiac disorder Father Conversions - Other Father LHON (Le kilo hereditary optic neuropathy) Diabetes Father Cardiac disorder Other 1 Diabetes Other 2 Hypertension Other 3 Hypertension Other 4 Kidney failure Other 5 Pancreatitis Sibling 1 Conversions - Other Sibling 2 Hypertri glyceridemia Relation Name Status Comments Father Other 1 Other 2 Other 3 Other 4 Other 5 Sibling 1 Sibling 2 Social History Tobacco Use Types Packs/Day Years Used Date Smoking Tobacco: Never Smokeless Tobacco: Current Snuff Tobacco Cessation:Ready to Q uit: Not Asked; Counseling Given: Not Answered Comments:1 can every 2 days. Alcohol Use [...] not to disclose 2020 3:31 PM EDT Last Filed Vital Signs Vital Sign Reading Time Taken Comments Blood Pressure 147/94 05/27/2022 9:03 AM EST Pulse 92 05/27/2022 9:03 AM EST Temperature 36.6 C (97.8 F) 08/10/2020 11:10 AM EST Respiratory Rate - - Oxygen Saturation - - Inhaled Oxygen Concentration - - Weight 92.9 kg (204 lb 12.9 oz) 05/27/2022 9:03 AM EST Height 172.7 cm (5' 8 ) 03/10/2022 8:27 AM EDT Body Mass Index 31.14 03/10/2022 8:27 AM EDT Plan of Treatment Health Maintenance Due Date Last Done Comments [facility]-Depression Screening 1979 [facility]-/Child/Adol SDOH Screenings 1979 [facility]- SDOH Screenings 1997 [facility]-Adult SDOH Screenings 1997 HPV Vaccines (1 - 3-dose SCDM series) 2006 CT Colonography 2024 FIT-DNA 2024 FIT 2024 FOBT 2024 Sigmoidoscopy 2024 [id number] Vaccine ( - season) 2025 [facility]-Influenza Vaccine (#1) 2025 [facility]-DTaP,Tdap,and Td Vaccines (2 - Td or Tdap) 01/02/2026 01/03/2016 [facility]-Zoster Vaccines (1 of 2) 2029 Colonoscopy 06/15/2030 06/15/2020 [facility]-Colorectal Cancer Screening 06/15/2030 [facility]-Hepatitis A Vaccines Aged Out 01/20/2019 No longer eligible based on patient's age to complete this topic [facility]-Hepatitis B Vaccines Completed 019, 01/20/2019, 02/18/2016, Additional history exists [facility]-Diabetes: Hemoglobin A1C Discontinued 03/20/2022, 11/14/2021, 08/07/2021, Additional history exists [facility]-HIB Vaccines Aged Out No longer e ligible based on patient's age to complete this topic [facility]-IPV Vaccines Aged Out No longer e ligible based on patient's age to complete this topic [facility]-Pneumococcal Vaccine: Pediatrics (0 to 5 Years) and At-Risk Patients (6 to 49 Years) Aged Out No longer eligible based on patient's age to complete this topic [facility]-Rotavirus Vaccines Aged Out No lo nger eligible based on patient's age to complete this topic Procedures Procedure Name Priority Date/Time Associated Diagnosis Comments POCT GLYCOSYLATED HEMOGLOBIN (HGB A1C) Routine 03/20/2022 8:29 AM EDT Uncontrolled type 2 diabetes mellitus with hyperglycemia (CMS/HCC) COLONOSCOPY 06/15/2020 from Last 3 Months or Most Recently Relevant to Health Maintenance Results * POCT glycosylated hemoglobin (Hb A1C) docked device (03/20/2022 8:29 AM EDT) POCT Hemoglobin A1C 11.5 4.4-6.6 % % [id number] Kit Lot Number n/a [facility] Kit Expiration Date n/a [id number] Blood Venous blood specimen / Unknown 03/20/2022 8:29 AM EDT Anusha Saha CHEMOTHERAPIST POINT OF CARE TEST ENTER/ED IT ORDERABLES Final Result [id number] [address] [place] [id number] * COLONOSCOPY (06/15/2020) Anatomical Region Laterality Modality Endoscopy Narrative 06/15/2020 Ordered by an unspecified provider. us Historical Provider GI PROCEDURE ORDERABLES Natalya l Result from Last 3 Months or Most Recently Relevant to Health Maintenance Insurance [employer] Care Teams Computer System Technician Relationship Specialty Start Date End Date Molly Yeager APRN [address] [place] [address] PCP - General 08/03/21
--- OUTSIDE RECORDS SUMMARY | 2025-04-10 16:47 | XMS_ITS | Clinical Summary ---
Author Organization [facility] Address [address] [place] [address] Care Team Providers Care Nature Photographer Name Role Phone Provider, No Known Primary Care Provider Unavail able Allergies Active Allergy Reactions Criticality Noted Date Comments Penicillins Rash Low Medications atorvastatin (LIPITOR) 40 MG tablet Take 40 mg by mouth Daily. 0 12/08/2018 Active PRALUENT 75 MG/ML solution pen-injector 01/06/2019 Active TRESIBA FLEXTOUCH 200 UNIT/ML solution pen-injector 11/16/2018 Active VASCEPA 1 g capsule capsule Take 2 capsules by mouth 2 (Two) Times a Day. 0 12/08/2018 Active losartan (COZAAR) 50 MG tablet Take 50 mg by mouth Daily. 0 01/01/2019 Active SYNJARDY XR 25-1000 MG tablet sustained-relea se 24 hour Take 1 tablet by mouth Every Morning. 0 12/09/2018 Active NOVOLOG FLEXPEN 100 UNIT/ML solution pen-injector sc pen INJECT 15 TO 20 UNITS UNDER THE SKIN BEFORE MEALS 2 01/01/2019 Active azithromycin (ZITHROMAX Z-DORIS) 250 MG tablet Take 2 tablets the first day, then 1 tablet daily for 4 days. 6 tablet 07/17/2019 Active Family History Relation Name Status Comments Father Mother Alive Social History Tobacco Use Types Packs/Day Years Used Date Smoking Tobacco: Never Alcohol Use Standard Drinks/Week Comments Not Currently 0 (1 standard drink = 0.6 oz pur e alcohol) Abuse Screen Answer Date Recorded Unsafe at Home or Work/School Not on file Feels Threatened by Someone? Not on file 03/2023 Does Anyone Keep You from Co ntacting Others or Doint Things Outside the Home? Not on file 04/20/2023 Physical Sign of Abuse Present Not on file 1 Housing Stability Answer Date Recorded Current Living Arrangements Not on file 03/2023 Potentially Unsafe Housing Conditions Not on charles e 04/20/2023 Family and Community Support Answer Kem e Recorded Help with Day-to-Day Activities Not on file 04/20/2023 Lonely or Isolated Not on file 04/20/2023 Employment Answer Date Recorded Do you want help finding or keeping work or a candie b? Not on file 04/20/2023 Disabilities Answer Date Recorded Concentrating, Remembering, or Making Decisions Difficulty Not on file 04/20/2023 Doing Errands Independently Difficulty Not on fi le 04/20/2023 Education Answer Date Recorded Help with school or training? Not on file Preferred Language Not on file 04/20/2023 Sex and Gender Information Value Date Recorded Sex Assigned at Not on file Legal Sex Male 10:12 AM EDT Gender Identity Not on file Sexual Orientation Not on file Last Filed Vital Signs Vital Sign Reading Time Taken Comments Blood Pressure 138/64 07/17/2019 1:04 PM EST Pulse 86 07/17/2019 1:04 PM EST Temperature 37.6 C (99.6 F) 07/17/2019 1:04 PM EST Respiratory Rate 20 07/17/2019 1:04 PM EST Oxygen Saturation 98% 07/17/2019 1:04 PM EST Inhaled Oxygen Concentration - - Weight 101 kg (223 lb) 07/17/2019 1:04 PM EST Height 172.7 cm (5' 8 ) 07/17/2019 1:04 PM EST Body Mass Index 33.91 07/17/2019 1:04 PM EST Plan of Treatment Health Maintenance Due Date Last Done Comments ANNUAL PHYSICAL 01/07/2019 HEPATITIS C SCREENING 01/07/2019 COLOGUARD 2024 COLON CANCER SCREENING 5 YEA R SIGMOIDOSCOPY 2024 COLONOSCOPY 2024 [address] CANCER SCREENING 2024 CT COLONOGRAPHY 2024 FECAL OCCULT BLOOD TEST 2024 FIT Testing (1 year) 2024 INFLUENZA VACCINE 02/10/2025 TDAP/TD VACCINES (2 - Td or Tdap) 01/02/2026 016 Pneumococcal Vaccine 0-49 Aged Out No longer eligible based on patient's age to complete this topic Insurance [employer] Care Teams Nature Photographer Relationship Specialty Start Date End Date Provider, No Known [facility] [place] [address] PCP - General 01/07/19
== END 2025-04-10 23:59 | disposition home or self-care (01) ==
LOC: LAB.DROPOF 16:44
PROVIDERS: PCP Nurse Practitioner; Visit Provider Nurse Practitioner
DX: E11.621 Type 2 diabetes mellitus with foot ulcer (principal); L97.529 Non-pressure chronic ulcer of other part of left foot with unspecified severity
CPT/HCPCS: 87070; 87205